=== PATIENT | male | born 1955 | race Caucasian/White ===

== ENCOUNTER 2016-12-03 12:22 | Emergency (ER) | payer SELFPAY ==
[~2016-12-03 12:22] MED LIST: ALBU6.7H INH; ERYT250 PO; PRED20 PO; Z.0.NO CURRENT MEDS
[2016-12-03 12:24] VITALS: BP 137/80; PULSE 68; RESP 20; TEMP 97.9; O2SAT 99
--- NOTE | 2016-12-03 12:49 | PD ---
Physical Exam Date Seen by Provider: Dec 03, 2016 Time Seen by Provider: 12:44 Data Data Last Documented VS Vital Signs Date Time Temp Pulse Resp B/P Pulse Ox O2 Delivery O2 Flow Rate FiO2 12/03/16 12:24 97.9 68 20 137/80 99 Room Air [facility] Supervised Visit with AMBER: No Narrative Course 61 YO M with complaint of right eye pain and redness x 1 week. No vision today. Denies injury. --F/C. Vitals reviewed. Seen in triage, awaiting bed placement. Nilda Jonas Dec 03, 2016 12:49
--- NOTE | 2016-12-03 13:04 | PD ---
HPI Chief Complaint: Eye Problems/Injury Time Seen by Provider: 13:01 Travel History International Travel<30 days: No Contact w/Intl Traveler<30days: No Traveled to known affect area: No History of Present Illness HPI 61-year-old male came to the emergency room with history of right eye tearing and irritation for past 2 weeks. Patient is not sure how this happened. 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 He says the eye one-stop tearing and it's photosensitive. There is no mattering. Vital signs otherwise stable. He is unable to see much from that eye. Patient does not have a primary care doctor and is not on any medications on a daily basis. [facility] Past Medical History Narrative Medical List of his past medical, surgical, social and family history is reviewed from the nursing note. Diminished Hearing: No Musculoskeletal: Yes ("BACK PROBLEMS" SCIATICA) Schizophrenia: Yes Past Surgical History Other Surgery: Yes (RIGHT THUMB) Social History Alcohol Use: No Tobacco Use: Yes (1 PPD) Substance Use: No Allergies-Medications (Allergen,Severity, Reaction): Coded Allergies: Darvocet-N 100 (Verified Allergy, Severe, Nausea/Vomiting, 12/03/16) Ibuprofen (Verified Allergy, Severe, NAUSEA, 12/03/16) Penicillin (Verified Allergy, Severe, VOMITING, SOB, 12/03/16) Opiate Agonists (Narcotics) (Verified Adverse Reaction, Unknown, Nausea/ Vomiting, 12/03/16) Comments List of his allergies reviewed from the nursing note. Reported Meds & Prescriptions Reported Meds & Active Scripts Active No Active Prescriptions or Reported Medications Narrative Medication List of his home medications reviewed from the nursing note. Review of Systems Except as stated in HPI: all other systems reviewed are Neg Physical Exam Narrative GENERAL: Awake, alert, moderate distress SKIN: Focused skin assessment warm/dry. HEAD: Atraumatic. Normocephalic. 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 However upon parting the eyelids open there is intense conjunctival injection. The cornea is opacified with central large ulcer and hypopyon visible. Pupil is sluggishly reactive to light. Vision is diminished to mostly light perception. Left eye is normal upon exam. ENT: No nasal bleeding or discharge. Mucous membranes pink and moist. NECK: Trachea midline. No JVD. CARDIOVASCULAR: Regular rate and rhythm. No murmur appreciated. RESPIRATORY: No accessory muscle use. Clear to auscultation. Breath sounds equal bilaterally. GASTROINTESTINAL: Abdomen soft, non-tender, nondistended. Hepatic and splenic margins not palpable. MUSCULOSKELETAL: No obvious deformities. No clubbing. No cyanosis. No edema. NEUROLOGICAL: Awake and alert. No obvious cranial nerve deficits. Motor grossly within normal limits. Normal speech. PSYCHIATRIC: Appropriate mood and affect; insight and judgment normal. Data Data Last Documented VS Vital Signs Date Time Temp Pulse Resp B/P Pulse Ox O2 Delivery O2 Flow Rate FiO2 12/03/16 13:09 18 12/03/16 12:24 97.9 68 137/80 99 Room Air Orders Blood Glucose (12/03/16 13:29) Wound Culture And Gram Stain (12/03/16 13:29) Wound Fungus Culture And Stain (12/03/16 13:29) Atropine 1% Opth Soln (Atropine 1% Opth (12/03/16 13:45) Tetracaine 0.5% Opth Soln (Tetracaine 0. (12/03/16 14:00) Non-Formulary Drug (12/03/16 14:00) Non-Formulary Drug (12/03/16 14:30) Proparacaine 0.5% Opth Soln (Alcaine 0.5 (12/03/16 14:15) MDM Medical Decision Making Medical Screen Exam Complete: Yes Emergency Medical Condition: Yes Medical Record Reviewed: Yes Differential Diagnosis Corneal ulcer, hypopyon Narrative Course 2:28 PM based on my assessment and diagnosis of corneal ulcer with hypopyon I called Dr. Avila on his cell phone who is the director of market research on-call for [facility]. There is no ophthalmology on-call for us. Upon description of the ulcer he recommended to give the patient one drop of atropine in the eye along with vancomycin ophthalmic solution that had to be prepared by our pharmacy with a concentration of 50 mg per mL and another ophthalmic solution preparation of tobramycin 15 mg per mL. These 2 eyedrops have to be given every 30 minutes alternating [id number] for a total of 96 drops. He wanted me to collect wound culture and send it before the eye drops are instilled. The culture needs to be sent for bacterial and fungal. As per him patient does not necessarily need to be admitted in the hospital unless he is unable to instilled these eyedrops as poor the strict instructions. He said he did not think this patient needed to be transferred to [facility] either. I discussed this with the patient and he was perfectly comfortable doing this at home. In fact patient does not have insurance he said and he would prefer to do it at home. I spoke with the pharmacists myself in order to give them the exact concentration instruction and they would be preparing the drops and sending it. Patient will get the first drops here and then discharged home with the medication. He is comfortable with this plan. His blood sugar was 96. Procedures EKG Prior to Arrival: No Physician Communication Physician Communication Dr. Avila Diagnosis Primary Impression: Corneal ulcer of right eye Additional Impression: Hypopyon of right eye Referrals: Laura Ramirez MD 1 day Additional Instructions: Please with the eyedrops that you were given from the emergency room every 30 minutes alternating one with the other. You have to put total of 96 drops which means [id number] for 2 days. Please follow-up with the director of market research was name and number been given to you in this discharge instruction. It is very important that you do not miss any doses of the eyedrops since your eye is grossly infected. Scripts No Active Prescriptions or Reported Meds Disposition: 01 DISCHARGE HOME Condition: Stable France Gagnon MD Dec 03, 2016 13:04 France Gagnon MD Dec 03, 2016 13:04
[2016-12-03] MEDS ORDERED: ATROPINE SULFATE 1% OPHT SOLN 2 ML BTL RIGHT EYE ONE (13:45)
[2016-12-03] MEDS ORDERED: TETRACAINE 0.5% OPTH SOLN 4 ML BTL RIGHT EYE ONE (14:00)
[2016-12-03] MEDS ORDERED: VANCOMYCIN RIGHT EYE SCH (14:00)
[2016-12-03] MEDS ORDERED: [UNRECOGNIZED DRUG - OTHER] RIGHT EYE SCH (14:00)
[2016-12-03] MEDS ORDERED: PROPARACAINE HCL 0.5% OPHT SOLN 15 ML BTL RIGHT EYE ONE (14:15)
[2016-12-03] MEDS ORDERED: TOBRAMYCIN RIGHT EYE SCH (14:30)
[2016-12-05] MEDS ORDERED: [UNRECOGNIZED DRUG - CODE] RIGHT EYE (09:56)
[2016-12-05] MEDS ORDERED: AK-T0.3S RIGHT EYE (09:56)
== END 2016-12-03 15:10 | disposition home or self-care (01) ==
LOC: NEPE 12:22
DX: H16.001 Unspecified corneal ulcer, right eye (principal); H20.051 Hypopyon, right eye; F20.9 Schizophrenia, unspecified; F17.200 Nicotine dependence, unspecified, uncomplicated
CPT/HCPCS: 86403; 87070; 87102; 87205; 87206; 99283

== ENCOUNTER 2016-12-05 17:55 | Inpatient (IN) | payer SELFPAY ==
[~2016-12-05] VITALS: Ht 172.7 cm; Wt 60.5 kg
[~2016-12-05 17:55] MED LIST changes: +AK-T0.3S RIGHT EYE; -ALBU6.7H INH; -ERYT250 PO; -PRED20 PO; -Z.0.NO CURRENT MEDS; +[UNRECOGNIZED DRUG - CODE] RIGHT EYE
[2016-12-05 17:58] VITALS: BP 154/89; PULSE 68; RESP 16; TEMP 97.8; O2SAT 98
--- NOTE | 2016-12-05 18:19 | PD ---
Physical Exam Time Seen by Provider: 18:17 Narrative 61yo M sent by [facility] [place] for Right eye pain x 2 weeks with complete loss of vision 1 1/2 weeks ago. Patient just left environmental professional office and was told to come to ER for admission. Denies fever, vomiting. Patient seen in triage. VS reviewed. Awaiting bed placement. Data Data Last Documented VS Vital Signs Date Time Temp Pulse Resp B/P Pulse Ox O2 Delivery O2 Flow Rate FiO2 12/05/16 17:58 97.8 68 16 154/89 98 MDM Supervised Visit with AMBER: Charissa Hernandes Dec 05, 2016 18:19
--- NOTE | 2016-12-05 18:48 | PD ---
HPI Chief Complaint: Eye Problems/Injury Time Seen by Provider: 18:35 Travel History International Travel<30 days: No Contact w/Intl Traveler<30days: No Traveled to known affect area: No History of Present Illness HPI This is a 61-year-old male who is referred here for admission for right eye endopthalmitis. The patient initially began having tearing, pain, itching and drainage from his right eye 3 weeks ago. He reports with a past week he has been having blurred vision and then almost complete vision loss in his right eye. He is only able to see shadows. He was seen here on December 03 and diagnosed with corneal ulceration with hypopyon. He was started on antibiotic drops. Today he saw pharmacy technician instructor Dr. Ramirez who referred him to retinal specialist Dr. Watson. Dr. Watson has referred him here to be admitted. I discussed with Dr. Watson reports that the patient has endophthalmitis like him to be admitted to medicine. No other complaints. PFSH Past Medical History Diminished Hearing: No Musculoskeletal: Yes (BACK PAIN) Schizophrenia: Yes (PARANOID SCHIZOPHRENIA) Tetanus Vaccination: > 5 Years Influenza Vaccination: No Past Surgical History Other Surgery: Yes (RIGHT THUMB) Social History Alcohol Use: No Tobacco Use: Yes (PT STATES HE SMOKES A LITTLE OVER 1/2 PACK/DAY) Substance Use: Yes (MARIJUANA) Allergies-Medications (Allergen,Severity, Reaction): Coded Allergies: Darvocet-N 100 (Verified Allergy, Severe, Nausea/Vomiting, 12/05/16) Ibuprofen (Verified Allergy, Severe, NAUSEA, 12/05/16) Penicillin (Verified Allergy, Severe, VOMITING, SOB, 12/05/16) Opiate Agonists (Narcotics) (Verified Adverse Reaction, Unknown, Nausea/ Vomiting, 12/05/16) Reported Meds & Prescriptions Reported Meds & Active Scripts Active Reported Vancomycin 1.5 Gram/250 ml-D5w (Vancomycin HCl in Dextrose 5 %) 1.5 Gm/250 Ml Plast..bag 1 Drop RIGHT EYE EVERY 30 MINUTES Tobramycin Opth Drops 0.3 % Soln 1 Drop RIGHT EYE EVERY 30 MINUTES Review of Systems Except as stated in HPI: all other systems reviewed are Neg Physical Exam Narrative GENERAL: Well-developed well-nourished male in no acute distress SKIN: Warm and dry. HEAD: Atraumatic. Normocephalic. EYES: Pupils round. Left pupil is dilated secondary to recent dilated eye examination. Sluggish reaction to light. Right eye has marked conjunctival injection, clouding of the cornea, significant hypopyon formation. ENT: No nasal bleeding or discharge. Mucous membranes pink and moist. NECK: Trachea midline. No JVD. No lymphadenopathy. CARDIOVASCULAR: Regular rate and rhythm. No murmur appreciated. RESPIRATORY: No accessory muscle use. Clear to auscultation. Breath sounds equal bilaterally. Data Data Last Documented VS Vital Signs Date Time Temp Pulse Resp B/P Pulse Ox O2 Delivery O2 Flow Rate FiO2 12/05/16 19:00 68 18 136/80 100 Room Air 12/05/16 17:58 97.8 Orders Complete Blood Count With Diff (12/05/16 18:43) Basic Metabolic Panel (Bmp) (12/05/16 18:43) Act Partial Throm Time (Ptt) (12/05/16 18:43) Prothrombin Time / Inr (Pt) (12/05/16 18:43) Iv Access Insert/Monitor (12/05/16 18:43) Admit Order (Ed Use Only) (12/05/16 19:06) [facility] Medical Decision Making Medical Screen Exam Complete: Yes Emergency Medical Condition: Yes Medical Record Reviewed: Yes Differential Diagnosis Endophthalmitis, corneal abrasion, corneal ulceration, hypopyon, iritis, conjunctivitis Narrative Course I discussed with the pharmacy technician instructor Dr. Watson would like the patient to be admitted to the medicine service with consultation to himself. Discussed with Dr. Juares who is agreeable with admission. Diagnosis Primary Impression: Endophthalmitis, acute Qualified Code: H44.001 - Endophthalmitis, acute, right Admitting Information Admitting Physician Requests: Admit Sergio Nichols Dec 05, 2016 18:48
[2016-12-05 19:00] VITALS: BP 136/80; PULSE 68; RESP 18; O2SAT 100
[2016-12-05 19:21] LABS: AUTOMATED NEUTROPHIL # 5.7 TH/MM3 (1.8-7.7); BASOPHIL # 0.1 TH/MM3 (0-0.2); BASOPHIL % 0.6 % (0.0-2.0); EOSINOPHIL # 0.3 TH/MM3 (0-0.4); EOSINOPHIL % 3.5 % (0.0-4.0); HEMATOCRIT 46.5 % (39.0-51.0); HEMO FLAGS DIFF FINAL; LYMPH % 23.7 % (9.0-44.0); LYMPHOCYTE # 2.1 TH/MM3 (1.0-4.8); MEAN CELL VOLUME 88.4 FL (80.0-100.0); MEAN CORPUSCULAR HEMOGLOBIN 30.4 PG (27.0-34.0); MEAN CORPUSCULAR HGB CONC 34.4 % (32.0-36.0); NEUT % 63.2 % (16.0-70.0); PLATELET COUNT 310 TH/MM3 (150-450); RED BLOOD COUNT 5.26 MIL/MM3 (4.50-5.90); RED CELL DISTRIBUTION WIDTH 12.8 % (11.6-17.2)
[2016-12-05 19:37] LABS: APTT (PATIENT) 28.8 SEC (24.3-30.1); PROTHROMBIN TIME - PATIENT 11.3 SEC (9.8-11.6)
[2016-12-05 19:46] LABS: BICARBONATE 28.4 MEQ/L (21.0-32.0); POTASSIUM 3.9 MEQ/L (3.5-5.1)
[2016-12-05 20:15] VITALS: O2SAT 98
[2016-12-05] MEDS ORDERED: SODIUM CHLORIDE 0.9% FLUSH 10 ML FLUSH IV FLUSH PRN (20:15)
[2016-12-05] MEDS ORDERED: ONDANSETRON HCL 4 MG/2 ML VIAL IVP PRN (20:15)
[2016-12-05] MEDS ORDERED: MAGNESIUM HYDROXIDE SUSP 30 ML CUP PO PRN (20:15)
[2016-12-05] MEDS ORDERED: NALOXONE HCL 0.4 MG/ML AMP IV PRN (20:15)
[2016-12-05] MEDS ORDERED: VANCOMYCIN HCL IN DEXTROSE RIGHT EYE SCH (20:45)
[2016-12-05] MEDS ORDERED: [UNRECOGNIZED DRUG - OTHER] RIGHT EYE SCH (20:45)
[2016-12-05 21:00] VITALS: BP 128/81; PULSE 55; RESP 20; TEMP 98.3; O2SAT 93
[2016-12-05] MEDS ORDERED: [UNRECOGNIZED DRUG - OTHER] RIGHT EYE SCH (21:00)
[2016-12-05] MEDS ORDERED: [UNRECOGNIZED DRUG - OTHER] RIGHT EYE SCH (21:00)
[2016-12-05] MEDS ORDERED: GENTAMICIN RIGHT EYE SCH (21:00)
[2016-12-05] MEDS ORDERED: TRIAMCINOLONE RIGHT EYE SCH (21:00)
[2016-12-05] MEDS ORDERED: VANCOMYCIN 1 MG/0.1 ML RIGHT EYE SCH (21:00)
[2016-12-05] MEDS ORDERED: [UNRECOGNIZED DRUG - OTHER] RIGHT EYE SCH (21:00)
[2016-12-05] MEDS: DOCUSATE SODIUM 50 MG/SENNA 8.6 MG TAB PO SCH (21:00)
--- NOTE | 2016-12-05 21:22 | HHI.HP ---
HPI Service [facility] Primary Care Physician No Primary Care Physician Admission Diagnosis endophthalmitis Diagnoses: Chief Complaint: pain right eye and decreased vision right eye Travel History International Travel<30 Days: No Contact w/Intl Traveler <30 Da: No Traveled to Known Affected Are: No History of Present Illness This is a pleasant 61 year old male patient with a past medical history which includes chronic back pain, sciatica and schizophrenia. Patient reports possibly 2 weeks ago he began to have pain in his right eye. Patient describes pain as severe 9 out of 10 starting spontaneously described as aching/burning in nature. Patient reports it is slightly better when he closes the eye and worse when next the eyes exposed to light. 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 Patient denies recent surgeries to the eye. Patient reports this is never happened before. Patient does report he has had pinkeye before and initially thought he had a, "cold," in his eye that would run its course but the pain continued in his vision has progressively gotten worse. Patient at this point reports he sees light and dark and some shadows but is not able to see any detail out of the right eye. Patient reports associated congestion in his right nostril. Patient denies headache, fevers, chills, nausea, vomiting, diarrhea, constipation, shortness of breath or chest pain. Review of Systems Except as stated in HPI: all other systems reviewed are Neg Past Family Social History Past Medical History chronic back pain, sciatica and schizophrenia Past Surgical History Right thumb sutured after trauma Reported Medications Vancomycin 1.5 Gram/250 ml-D5w (Vancomycin HCl in Dextrose 5 %) 1.5 Gm/250 Ml Plast..bag 1 Drop RIGHT EYE EVERY 30 MINUTES Tobramycin Opth Drops 0.3 % Soln 1 Drop RIGHT EYE EVERY 30 MINUTES Allergies: Coded Allergies: Darvocet-N 100 (Verified Allergy, Severe, Nausea/Vomiting, 12/05/16) Ibuprofen (Verified Allergy, Severe, NAUSEA, 12/05/16) Penicillin (Verified Allergy, Severe, VOMITING, SOB, 12/05/16) Opiate Agonists (Narcotics) (Verified Adverse Reaction, Unknown, Nausea/ Vomiting, 12/05/16) Active Ordered Medications Current Medications Medications (Trade) Dose Ordered Sig/Angelita Route Start Time Stop Time Status Last Admin (NS Flush) 2 ml UNSCH PRN IV FLUSH 12/05/16 20:15 (NS Flush) 2 ml BID IV FLUSH 12/05/16 21:00 (Tylenol) 650 mg Q4H PRN PO 12/05/16 20:15 (Zofran Inj) 4 mg Q6H PRN IVP 12/05/16 20:15 (Narcan Inj) 0.4 mg UNSCH PRN IV 12/05/16 20:15 (Kelli-Colace) 1 tab BID PO 12/05/16 21:00 (Milk Of Magnyu Liq) 30 ml Q12H PRN PO 12/05/16 20:15 (Tobrex 0.3% Opth Soln) 1 drop Q1HR RIGHT EYE 12/05/16 21:00 UNV Non-Formulary Medication 0.1 ML INTRA-VITREAL INJECTION UNSCH RIGHT EYE 12/05/16 21:00 Non-Formulary Medication 0.1 ML INTRA-VITREAL INJECTION UNSCH RIGHT EYE 12/05/16 21:00 (Triesence Opth Inj) 4 mg UNSCH RIGHT EYE 12/05/16 21:00 Non-Formulary Medication 1 DROP IN THE RIGHT ... UNSCH RIGHT EYE 12/05/16 21:15 12/16/16 21:16 Non-Formulary Medication 1 DROP TO RIGHT EYE UNSCHEDU... UNSCH EACH EYE 12/05/16 21:15 Family History Mother at 44 secondary to colon cancer Patient does not know his father or father's medical history Social History Patient lives at home with his significant other Patient denies EtOH use Smokes less than one pack cigarettes per day Smokes marijuana multiple times a day. Patient reports he smokes marijuana, "any time I can get it." Denies any other illicit drug use Physical Exam Vital Signs Vital Signs Date Time Temp Pulse Resp B/P Pulse Ox O2 Delivery O2 Flow Rate FiO2 12/05/16 20:15 98 12/05/16 19:00 68 18 136/80 100 Room Air 12/05/16 18:41 17 12/05/16 17:58 97.8 68 16 154/89 98 Physical Exam GENERAL: This is a well-nourished, well-developed patient, in no apparent distress. SKIN: No rashes, ecchymoses or lesions. Cool and dry. HEAD: Atraumatic. Normocephalic. No temporal or scalp tenderness. EYES: Right eye pupil with white/cloudy appearance, conjunctiva red/pink with clear drainage present. Left eye reactive to light and accommodation CARDIOVASCULAR: Regular rate and rhythm without murmurs, gallops, or rubs. RESPIRATORY: Clear to auscultation. Breath sounds equal bilaterally. No wheezes , rales, or rhonchi. GASTROINTESTINAL: Abdomen soft, non-tender, nondistended. No hepato-splenomegaly , or palpable masses. No guarding. MUSCULOSKELETAL: Extremities without clubbing, cyanosis, or edema. No joint tenderness, effusion, or edema noted. No calf tenderness. Negative Homans sign bilaterally. NEUROLOGICAL: Awake and alert. No focal deficits noted. Motor and sensory grossly within normal limits. Five out of 5 muscle strength in all muscle groups. Normal speech. Laboratory Laboratory Tests Test 12/05/16 19:02 White Blood Count 9.0 Red Blood Count 5.26 Hemoglobin 16.0 Hematocrit 46.5 Mean Corpuscular Volume 88.4 Mean Corpuscular Hemoglobin 30.4 Mean Corpuscular Hemoglobin 34.4 Concent Red Cell Distribution Width 12.8 Platelet Count 310 Mean Platelet Volume 7.1 Neutrophils (%) (Auto) 63.2 Lymphocytes (%) (Auto) 23.7 Monocytes (%) (Auto) 9.0 Eosinophils (%) (Auto) 3.5 Basophils (%) (Auto) 0.6 Neutrophils # (Auto) 5.7 Lymphocytes # (Auto) 2.1 Monocytes # (Auto) 0.8 Eosinophils # (Auto) 0.3 Basophils # (Auto) 0.1 CBC Comment DIFF FINAL Differential Comment Prothrombin Time 11.3 Prothromb Time International 1.0 Ratio Activated Partial 28.8 Thromboplast Time Sodium Level 140 Potassium Level 3.9 Chloride Level 104 Carbon Dioxide Level 28.4 Anion Gap 8 Blood Urea Nitrogen 18 Creatinine 0.96 Estimat Glomerular Filtration 79 Rate Random Glucose 108 Calcium Level 8.8 Result Diagram: 12/05/16190112/05/161901 Assessment and Plan Problem List: (1) Endophthalmitis, acute ICD Code: H44.009 Status: Acute Assessment and Plan 61 year old male patient with a past medical history which includes chronic back pain, sciatica and schizophrenia. Patient reports possibly 2 weeks ago he began to have pain in his right eye. Patient at this point reports he sees light and dark and some shadows but is not able to see any detail out of the right eye. Referred to ER by retinal specialist Dr. Watson for treatment of endophthalmitis. Endophthalmitis STAT Consult to Dr. Watson spoke with Dr. Watson at approximately 12/05- who reports he would see patient this evening and faxed orders. Orders given to nursing who called Dr. Watson and reported they are unable to enter these orders for him. Discussed with Dr. Juares who is aware of situation. Continue tobramycin and vancomycin optic drops per outpatient medication reconciliation- further orders per Dr. Watson DVT prophylaxis with SCDs Case discussed with ER provider, nursing patient Dr. Watson and Dr. Juares Physician Certification 2 Midnight Certification Type: Admission for Inpatient Services Order for Inpatient Services The services are ordered in accordance with Medicare regulations or non- Medicare payer requirements, as applicable. In the case of services not specified as inpatient-only, they are appropriately provided as inpatient services in accordance with the 2-midnight benchmark. Estimated LOS (days): 3 days is the estimated time the patient will need to remain in the hospital, assuming treatment plan goals are met and no additional complications. Post-Hospital Plan: Home Problem Qualifiers (1) Endophthalmitis, acute: Qualified Code: H44.001 - Endophthalmitis, acute, right Liya Nation Dec 05, 2016 21:22
--- NOTE | 2016-12-05 21:46 | HHI.PR ---
Addendum to Inpatient Note Addendum Reason: Additional Documentation Additional Information Discussed this case with ER PA, our physician rehab assistant and charge nurse of the patient. Patient was sent from retinal specialist Dr. Watson's office for management of endopthalmitis. Dr. Watson is made aware of the case after patient's arrival to ER by ER PA. Our hospitalist team PA also called Dr. Watson to inform him of patient's arrival and plan of care. Dr. Watson told our PA that he plans to take patient for intervention tonight and had faxed papers with orders. We have given these paper orders to patient's nurse and charge nurse in [address] [place] [address] who called and spoke to Dr Watson. Further clarification of orders to be done by nursing staff and the physician who put the orders. Pharmacy is informed to follow Dr. Watson's orders on this case. As the hospitalist physician, I am not responsible for putting in ophthalmology orders that I am not familiar with and cannot be held responsible for treatment option plans and choices. China Juares MD Dec 05, 2016 21:46
[2016-12-05] MEDS ORDERED: TOBRAMYCIN SULF 0.3% OPHT SOLN 5 ML BTL RIGHT EYE SCH (22:00)
[2016-12-05] MEDS ORDERED: LIDOCAINE 3.5% RIGHT EYE PRN (22:00)
[2016-12-05] MEDS ORDERED: PROPARACAINE HCL 0.5% OPHT SOLN 15 ML BTL RIGHT EYE PRN (22:00)
[2016-12-05] MEDS: SODIUM CHLORIDE 0.9% FLUSH 10 ML FLUSH IV FLUSH SCH (22:04)
[2016-12-05] MEDS ORDERED: POVIDONE IODINE 10% OINT 1 PACKET PRN (22:15)
[2016-12-05] MEDS ORDERED: COCAINE HCL 4% SOLN 4 ML VIAL TOPICAL ONE (22:45)
[2016-12-06] VITALS (8 sets, daily range): BP systolic 118–135; BP diastolic 65–84; PULSE 50–58; RESP 18; TEMP 97.9–98.5; O2SAT 96–97
[2016-12-06] MEDS: ACETAMINOPHEN/HYDROcodone 325 MG/10 MG TAB PO PRN ×4 (00:20→21:32)
[2016-12-06] MEDS: GENTAMICIN RIGHT EYE SCH ×25 (00:21→23:20)
[2016-12-06] MEDS: ATROPINE SULFATE 1% OPHT SOLN 5 ML BTL RIGHT EYE SCH ×4 (00:49→18:00)
[2016-12-06] MEDS: prednisoLONE ACETATE 1% OPHT SUSP 5 ML BTL RIGHT EYE SCH ×23 (00:51→23:04)
[2016-12-06] MEDS: VANCOMYCIN RIGHT EYE SCH ×9 (00:55→08:17)
[2016-12-06] MEDS: [UNRECOGNIZED DRUG - OTHER] RIGHT EYE SCH ×9 (00:55→08:17)
[2016-12-06 07:09] LABS: AUTOMATED NEUTROPHIL # 6.9 TH/MM3 (1.8-7.7); BASOPHIL # 0.1 TH/MM3 (0-0.2); BASOPHIL % 0.8 % (0.0-2.0); EOSINOPHIL # 0.3 TH/MM3 (0-0.4); EOSINOPHIL % 3.2 % (0.0-4.0); HEMATOCRIT 45.5 % (39.0-51.0); HEMO FLAGS DIFF FINAL; LYMPH % 22.4 % (9.0-44.0); LYMPHOCYTE # 2.3 TH/MM3 (1.0-4.8); MEAN CELL VOLUME 89.1 FL (80.0-100.0); MEAN CORPUSCULAR HEMOGLOBIN 30.2 PG (27.0-34.0); MEAN CORPUSCULAR HGB CONC 33.8 % (32.0-36.0); MONO % 7.3 % (0.0-8.0); NEUT % 66.3 % (16.0-70.0); PLATELET COUNT 292 TH/MM3 (150-450); RED CELL DISTRIBUTION WIDTH 12.7 % (11.6-17.2); WHITE BLOOD COUNT 10.3 TH/MM3 (4.0-11.0)
[2016-12-06 07:22] LABS: BICARBONATE 26.1 MEQ/L (21.0-32.0); POTASSIUM 4.5 MEQ/L (3.5-5.1)
[2016-12-06] MEDS: SODIUM CHLORIDE 0.9% FLUSH 10 ML FLUSH IV FLUSH SCH ×2 (08:12→21:12)
[2016-12-06] MEDS: DOCUSATE SODIUM 50 MG/SENNA 8.6 MG TAB PO SCH ×2 (08:14→21:12)
--- NOTE | 2016-12-06 09:13 | HHI.PR ---
Subjective Remarks Follow-up endophthalmitis. Still having pain scale of 8 out of 10. Discussed with RN, patient on 3 different eyedrops Objective Vitals Vital Signs Date Time Temp Pulse Resp B/P Pulse Ox O2 Delivery O2 Flow Rate FiO2 12/06/16 08:00 97.9 50 18 122/70 96 12/06/16 04:00 97.9 57 18 123/71 96 12/06/16 00:00 98.4 58 18 134/84 97 12/05/16 21:00 Room Air 12/05/16 21:00 98.3 55 20 128/81 93 12/05/16 20:15 98 12/05/16 19:00 68 18 136/80 100 Room Air 12/05/16 18:41 17 12/05/16 17:58 97.8 68 16 154/89 98 Result Diagram: 12/06/16 0542 12/06/16 0542 Objective Remarks GENERAL: This is a well-nourished, well-developed patient, in no apparent distress. SKIN: No rashes, ecchymoses or lesions. Cool and dry. HEAD: Atraumatic. Normocephalic. No temporal or scalp tenderness. EYES: Right eye pupil with white/cloudy appearance, conjunctiva red/pink with clear drainage present. Left eye reactive to light CARDIOVASCULAR: Regular rate and rhythm without murmurs, gallops, or rubs. RESPIRATORY: Clear to auscultation. Breath sounds equal bilaterally. No wheezes , rales, or rhonchi. GASTROINTESTINAL: Abdomen soft, non-tender, nondistended. No hepato-splenomegaly , or palpable masses. No guarding. MUSCULOSKELETAL: Extremities without clubbing, cyanosis, or edema. No joint tenderness, effusion, or edema noted. No calf tenderness. Negative Homans sign bilaterally. NEUROLOGICAL: Awake and alert. No focal deficits noted. Motor and sensory grossly within normal limits. Five out of 5 muscle strength in all muscle groups. Normal speech. Procedures none A/P Problem List: (1) Endophthalmitis, acute ICD Code: H44.009 Status: Acute Assessment and Plan 61 year old male patient with a past medical history which includes chronic back pain, sciatica and schizophrenia. Patient reports possibly 2 weeks ago he began to have pain in his right eye. Patient at this point reports he sees light and dark and some shadows but is not able to see any detail out of the right eye. Referred to ER by retinal specialist Dr. Watson for treatment of endophthalmitis. Endophthalmitis Continue tobramycin, Atrovent and Pred Forte eyedrops per ophthalmology. Pain management with Lortab DVT prophylaxis with SCDs Discharge Planning Discharge planning per ophthalmology Problem Qualifiers (1) Endophthalmitis, acute: Qualified Code: H44.001 - Endophthalmitis, acute, right Jorden Mann MD Dec 06, 2016 09:13 Jorden Mann MD Dec 06, 2016 09:13
[2016-12-06] MEDS ORDERED: HYDR-3583 PO (16:02)
--- NOTE | 2016-12-06 16:02 | HHI.DCPOC ---
Discharge Care Plan Diagnosis: (1) Endophthalmitis, acute Your Health Problems Are: Difficulty with ADL Exercise Tolerance Goals to Promote Your Health * To prevent worsening of your condition and complications * To maintain your health at the optimal level Directions to Meet Your Goals Take your medications as prescribed Follow your dietary instruction Follow activity as directed Keep your appointments as scheduled Take your immunizations and boosters as scheduled If your symptoms worsen call your PCP, if no PCP go to Urgent Care Center or Emergency Room Smoking is Dangerous to Your Health. Avoid second hand smoke Call the 24-hour hour crisis hotline for domestic abuse at Jorden Mann MD Dec 06, 2016 16:02
[2016-12-07] VITALS (8 sets, daily range): BP systolic 107–131; BP diastolic 60–88; PULSE 47–62; RESP 16–20; TEMP 97.8–98.6; O2SAT 93–97
[2016-12-07] MEDS: prednisoLONE ACETATE 1% OPHT SUSP 5 ML BTL RIGHT EYE SCH ×24 (00:06→23:07)
[2016-12-07] MEDS: GENTAMICIN RIGHT EYE SCH ×24 (00:22→23:08)
[2016-12-07] MEDS: ACETAMINOPHEN/HYDROcodone 325 MG/10 MG TAB PO PRN ×4 (02:31→15:15)
--- NOTE | 2016-12-07 08:19 | HHI.PR ---
Subjective Remarks Follow-up Endophthalmitis. Improving eye pain. Still can't see out of right eye. Discussed with RN, stable for discharge from medical standpoint pending ophthalmology clearance Objective Vitals Vital Signs Date Time Temp Pulse Resp B/P Pulse Ox O2 Delivery O2 Flow Rate FiO2 12/07/16 04:00 97.8 50 18 107/60 96 12/07/16 00:00 98.0 55 16 123/78 96 12/06/16 20:00 98.5 52 18 135/79 97 12/06/16 19:30 Room Air 12/06/16 18:02 97 21 12/06/16 16:00 98.0 50 18 126/65 97 12/06/16 12:00 98.4 58 18 118/79 97 12/06/16 11:01 96 I/O 12/06/16 12/06/16 12/06/16 12/07/16 12/07/16 12/07/16 07:00 15:00 23:00 07:00 15:00 23:00 Intake Total 720 ml 360 ml 240 ml Balance 720 ml 360 ml 240 ml Intake Oral 720 ml 360 ml 240 ml IV Total 0 ml # Voids 2 3 4 # Bowel Movements 1 1 0 Result Diagram: 12/06/1642 12/06/16 0542 Objective Remarks GENERAL: This is a well-nourished, well-developed patient, in no apparent distress. SKIN: No rashes, ecchymoses or lesions. Cool and dry. HEAD: Atraumatic. Normocephalic. No temporal or scalp tenderness. EYES: Right eye pupil with white/cloudy appearance, conjunctiva red/pink with clear drainage present. Left eye reactive to light CARDIOVASCULAR: Regular rate and rhythm without murmurs, gallops, or rubs. RESPIRATORY: Clear to auscultation. Breath sounds equal bilaterally. No wheezes , rales, or rhonchi. GASTROINTESTINAL: Abdomen soft, non-tender, nondistended. No hepato-splenomegaly , or palpable masses. No guarding. MUSCULOSKELETAL: Extremities without clubbing, cyanosis, or edema. No joint tenderness, effusion, or edema noted. No calf tenderness. Negative Homans sign bilaterally. NEUROLOGICAL: Awake and alert. No focal deficits noted. Motor and sensory grossly within normal limits. Five out of 5 muscle strength in all muscle groups. Normal speech. Procedures Tap and injection of right eye with vancomycin, gentamicin and triamcinolone A/P Problem List: (1) Endophthalmitis, acute ICD Code: H44.009 Status: Acute Assessment and Plan 61 year old male patient with a past medical history which includes chronic back pain, sciatica and schizophrenia. Patient reports possibly 2 weeks ago he began to have pain in his right eye. Patient at this point reports he sees light and dark and some shadows but is not able to see any detail out of the right eye. Referred to ER by retinal specialist Dr. Watson for treatment of endophthalmitis. Endophthalmitis s/p Tap and injection of right eye with vancomycin, gentamicin and triamcinolone by Dr. Watson. Improving pain. Cultures negative to date Continue tobramycin, Atrovent and Pred Forte eyedrops per ophthalmology. Pain management with Lortab DVT prophylaxis with SCDs Discharge Planning Discharge planning per ophthalmology Problem Qualifiers (1) Endophthalmitis, acute: Qualified Code: H44.001 - Endophthalmitis, acute, right Jorden Mann MD Dec 07, 2016 08:19
[2016-12-07] MEDS: DOCUSATE SODIUM 50 MG/SENNA 8.6 MG TAB PO SCH ×2 (08:23→20:23)
[2016-12-07] MEDS: SODIUM CHLORIDE 0.9% FLUSH 10 ML FLUSH IV FLUSH SCH ×2 (08:24→20:24)
[2016-12-07] MEDS: ATROPINE SULFATE 1% OPHT SOLN 5 ML BTL RIGHT EYE SCH ×3 (09:16→18:38)
[2016-12-07] MEDS: VANCOMYCIN RIGHT EYE SCH ×2 (22:18→23:07)
[2016-12-07] MEDS: [UNRECOGNIZED DRUG - OTHER] RIGHT EYE SCH ×2 (22:18→23:07)
[2016-12-08] VITALS (9 sets, daily range): BP systolic 106–154; BP diastolic 67–95; PULSE 46–60; RESP 18–20; TEMP 97.6–98.4; O2SAT 94–98
[2016-12-08] MEDS: VANCOMYCIN RIGHT EYE SCH ×24 (00:02→23:00)
[2016-12-08] MEDS: prednisoLONE ACETATE 1% OPHT SUSP 5 ML BTL RIGHT EYE SCH ×23 (00:02→22:23)
[2016-12-08] MEDS: GENTAMICIN RIGHT EYE SCH ×24 (00:02→23:34)
[2016-12-08] MEDS: [UNRECOGNIZED DRUG - OTHER] RIGHT EYE SCH ×23 (00:02→22:22)
[2016-12-08] MEDS: ACETAMINOPHEN/HYDROcodone 325 MG/10 MG TAB PO PRN ×3 (06:03→20:36)
[2016-12-08] MEDS: SODIUM CHLORIDE 0.9% FLUSH 10 ML FLUSH IV FLUSH SCH ×2 (08:03→21:10)
[2016-12-08] MEDS: DOCUSATE SODIUM 50 MG/SENNA 8.6 MG TAB PO SCH ×2 (08:45→21:00)
[2016-12-08] MEDS: ATROPINE SULFATE 1% OPHT SOLN 5 ML BTL RIGHT EYE SCH ×3 (08:45→18:24)
--- NOTE | 2016-12-08 08:57 | HHI.PR ---
Subjective Remarks Follow-up eye infection. Ophthalmology added topical vancomycin which was inadvertently discontinued. Patient complaining of right eye pain requiring Lortab. Still cannot see out of the right eye. Discussed with RN Objective Vitals Vital Signs Date Time Temp Pulse Resp B/P Pulse Ox O2 Delivery O2 Flow Rate FiO2 12/08/16 08:00 Room Air 12/08/16 04:00 98.3 56 20 124/68 96 12/08/16 04:00 Room Air 12/08/16 00:19 98.1 46 20 118/76 98 12/08/16 00:00 Room Air 12/07/16 22:17 95 21 12/07/16 20:00 Room Air 12/07/16 20:00 98.4 57 20 130/88 97 12/07/16 16:00 98.3 51 16 125/83 96 12/07/16 16:00 Room Air 12/07/16 12:00 Room Air 12/07/16 12:00 98.6 47 16 131/80 97 12/07/16 09:11 93 21 I/O 12/07/16 12/07/16 12/07/16 12/08/16 12/08/16 12/08/16 07:00 15:00 23:00 07:00 15:00 23:00 Intake Total 240 ml 602 ml 360 ml 120 ml Balance 240 ml 602 ml 360 ml 120 ml Intake Oral 240 ml 600 ml 360 ml 120 ml IV Total 2 ml # Voids 4 3 3 3 # Bowel Movements 0 0 0 0 Result Diagram: 12/06/16 0542 12/06/16 0542 Objective Remarks GENERAL: This is a well-nourished, well-developed patient, in no apparent distress. SKIN: No rashes, ecchymoses or lesions. Cool and dry. HEAD: Atraumatic. Normocephalic. No temporal or scalp tenderness. EYES: Right eye pupil with white/cloudy appearance, conjunctiva red/pink with clear drainage present. Left eye reactive to light CARDIOVASCULAR: Regular rate and rhythm without murmurs, gallops, or rubs. RESPIRATORY: Clear to auscultation. Breath sounds equal bilaterally. No wheezes , rales, or rhonchi. GASTROINTESTINAL: Abdomen soft, non-tender, nondistended. No hepato-splenomegaly , or palpable masses. No guarding. MUSCULOSKELETAL: Extremities without clubbing, cyanosis, or edema. No joint tenderness, effusion, or edema noted. No calf tenderness. Negative Homans sign bilaterally. NEUROLOGICAL: Awake and alert. No focal deficits noted. Motor and sensory grossly within normal limits. Five out of 5 muscle strength in all muscle groups. Normal speech. Procedures Tap and injection of right eye with vancomycin, gentamicin and triamcinolone A/P Problem List: (1) Endophthalmitis, acute ICD Code: H44.009 Status: Acute Assessment and Plan 61 year old male patient with a past medical history which includes chronic back pain, sciatica and schizophrenia. Patient reports possibly 2 weeks ago he began to have pain in his right eye. Patient at this point reports he sees light and dark and some shadows but is not able to see any detail out of the right eye. Referred to ER by retinal specialist Dr. Watson for treatment of endophthalmitis. Endophthalmitis s/p Tap and injection of right eye with vancomycin, gentamicin and triamcinolone by Dr. Watson. Improving pain. Cultures negative to date, will follow up Continue tobramycin, Atrovent and Pred Forte eyedrops per ophthalmology. Added Vanco eyedrops. Pain management with Lortab DVT prophylaxis with SCDs Discharge Planning Discharge planning per ophthalmology Problem Qualifiers (1) Endophthalmitis, acute: Qualified Code: H44.001 - Endophthalmitis, acute, right Jorden Mann MD Dec 08, 2016 08:57
[2016-12-08] MEDS: AMPHOTERICIN B RIGHT EYE SCH ×7 (20:40→23:35)
[2016-12-08] MEDS: [UNRECOGNIZED DRUG - OTHER] RIGHT EYE SCH (23:00)
[2016-12-09] VITALS (10 sets, daily range): BP systolic 92–126; BP diastolic 55–81; PULSE 48–60; RESP 15–16; TEMP 97.6–98.6; O2SAT 95–98
[2016-12-09] MEDS: AMPHOTERICIN B RIGHT EYE SCH ×44 (00:07→22:30)
[2016-12-09] MEDS: GENTAMICIN RIGHT EYE SCH ×7 (00:07→06:09)
[2016-12-09] MEDS: [UNRECOGNIZED DRUG - OTHER] RIGHT EYE SCH ×12 (00:45→23:14)
[2016-12-09] MEDS: VANCOMYCIN RIGHT EYE SCH ×12 (00:45→23:14)
[2016-12-09] MEDS: CHLORHEXIDINE GLUCONATE 2 % 1 PACK (2 CLOTHS)(taper/protocol) TOPICAL SCH ×2 (04:00→20:18)
[2016-12-09] MEDS: SODIUM CHLORIDE 0.9% FLUSH 10 ML FLUSH IV FLUSH SCH ×2 (08:32→20:23)
[2016-12-09] MEDS: TOBRAMYCIN RIGHT EYE SCH ×8 (08:32→21:28)
[2016-12-09] MEDS: ATROPINE SULFATE 1% OPHT SOLN 5 ML BTL RIGHT EYE SCH ×3 (09:10→17:55)
[2016-12-09] MEDS: DOCUSATE SODIUM 50 MG/SENNA 8.6 MG TAB PO SCH ×2 (09:12→20:24)
[2016-12-09] MEDS: ACETAMINOPHEN/HYDROcodone 325 MG/10 MG TAB PO PRN ×2 (09:15→20:17)
--- NOTE | 2016-12-09 10:15 | HHI.PR ---
Subjective Remarks resting comfortably with no distress. says that his vision is improving but very slowly. no new complaints. Objective Vitals Vital Signs Date Time Temp Pulse Resp B/P Pulse Ox O2 Delivery O2 Flow Rate FiO2 12/09/16 10:00 96 Room Air 12/09/16 10:00 57 16 108/69 12/09/16 08:45 98 12/09/16 08:00 Room Air 12/09/16 08:00 98.3 59 16 109/77 12/09/16 04:00 98.4 48 16 126/69 95 12/09/16 00:00 95 Room Air 12/09/16 00:00 97.8 52 16 124/81 95 12/08/16 22:50 97.8 55 20 154/95 97 12/08/16 20:31 98.4 55 18 112/67 95 12/08/16 20:00 Room Air 12/08/16 17:30 94 21 12/08/16 16:00 Room Air 12/08/16 16:00 97.9 53 18 122/77 94 12/08/16 12:00 97.8 54 18 106/71 96 12/08/16 12:00 Room Air I/O 12/08/16 12/08/16 12/08/16 12/09/16 12/09/16 12/09/16 07:00 15:00 23:00 07:00 15:00 23:00 Intake Total 120 ml 482 ml 120 ml 0 ml Output Total 0 ml Balance 120 ml 482 ml 120 ml 0 ml Intake Oral 120 ml 480 ml 120 ml 0 ml IV Total 2 ml Output Urine Total 0 ml # Voids 3 2 3 # Bowel Movements 0 Result Diagram: 12/06/16 0542 12/06/16 0542 Objective Remarks GENERAL: This is a well-nourished, well-developed patient, in no apparent distress. HEENT; left eye is mildly swollen CARDIOVASCULAR: Regular rate and regular rhythm without murmurs, gallops, or rubs. RESPIRATORY: Clear to auscultation. Breath sounds equal bilaterally. No wheezes , rales, or rhonchi. GASTROINTESTINAL: Abdomen soft, non-tender, nondistended. Normal, active bowel sounds MUSCULOSKELETAL: Extremities without clubbing, cyanosis, or edema. NEURO: Alert & Oriented x4 to person, place, time, situation. Moves all ext x4 Procedures Tap and injection of right eye with vancomycin, gentamicin and triamcinolone Medications and IVs Current Medications Sodium Chloride (NS Flush) 2 ml UNSCH PRN IV FLUSH FLUSH AFTER USING IV ACCESS ; Start 12/05/16 at 20:15 Sodium Chloride (NS Flush) 2 ml BID IV FLUSH Last administered on 12/09/16 08: 32; Start 12/05/16 at 21:00 Acetaminophen (Tylenol) 650 mg Q4H PRN PO TEMP > 100.4; Start 12/05/16 at 20:15 Ondansetron HCl (Zofran Inj) 4 mg Q6H PRN IVP NAUSEA OR VOMITING; Start at 20:15 Naloxone HCl (Narcan Inj) 0.4 mg UNSCH PRN IV SEE LABEL COMMENTS; Start at 20:15 Senna/Docusate Sodium (Kelli-Colace) 1 tab BID PO Last administered on 09:12; Start 12/05/16 at 21:00 Magnesium Hydroxide (Milk Of Magnesia Liq) 30 ml Q12H PRN PO MILD - MODERATE CONSTIPATION; Start 12/05/16 at 20:15 Tobramycin Sulfate (Tobrex 0.3% Opth Soln) 1 drop Q30M RIGHT EYE ; Start at 22:00; Status Cancel Non-Formulary Medication 1 drop Every 30 minutes RIGHT EYE ; Start 12/05/16 at 20:45; Stop 12/05/16 at 21:30; Status DC Non-Formulary Medication 0.1 ML INTRA-VITREAL INJECTION UNSCH RIGHT EYE ; Start 12/05/16 at 21:00; Stop 12/06/16 at 03:00; Status DC Non-Formulary Medication 0.1 ML INTRA-VITREAL INJECTION UNSCH RIGHT EYE ; Start 12/05/16 at 21:00; Stop 12/06/16 at 03:00; Status DC Triamcinolone Acetonide (Triesence Opth Inj) 4 mg UNSCH RIGHT EYE ; Start at 21:00 Non-Formulary Medication 1 DROP IN THE RIGHT ... Q1H RIGHT EYE Last administered on 12/06/16 08:17; Start 12/05/16 at 21:15; Stop 12/06/16 at 08:16 ; Status DC Non-Formulary Medication 1 DROP TO RIGHT EYE UNSCHEDU... Q1H RIGHT EYE Last administered on 12/09/16 06:09; Start 12/05/16 at 21:15; Stop 12/09/16 at 07:30 ; Status DC Atropine Sulfate (Isopto Atropine 1% Opth Soln) 1 drop TID RIGHT EYE Last administered on 12/09/16 09:10; Start 12/05/16 at 22:00 Prednisolone Acetate (Pred Forte 1% Opth Susp) 1 drop Q1H RIGHT EYE Last administered on 12/08/16 22:23; Start 12/05/16 at 22:00; Status Hold Proparacaine HCl (Alcaine 0.5% Opht Soln) 1 drop UNSCH PRN RIGHT EYE PROCEDURE ; Start 12/05/16 at 22:00; Stop 12/06/16 at 21:59; Status DC Lidocaine ([place] Pf 3.5% Opth Gel) 1 drop UNSCH PRN RIGHT EYE PROCEDURE; Start 12/05/16 at 22:00; Stop 12/06/16 at 21:59; Status Cancel Povidone Iodine (Betadine 10% Oint) 1 pkt UNSCH PRN .XX PROCEDURE; Start at 22:15; Stop 12/06/16 at 22:14; Status DC Cocaine HCl (Cocaine 4% Top Soln) 4 ml ONCE ONCE TOPICAL Last administered on 12/05/16 22:45; Start 12/05/16 at 22:45; Stop 12/05/16 at 22:46; Status DC Acetaminophen/ Hydrocodone Bitart ([place] 10-325 Mg) 1 tab Q3H PRN PO Last administered on 12/06/16 03:42; Start 12/06/16 at 00:15; Stop 12/06/16 at 09:17 ; Status DC Acetaminophen/ Hydrocodone Bitart ([place] 10-325 Mg) 1 tab Q4H PRN PO pain Last administered on 12/09/16 09:15; Start 12/06/16 at 12:00 Non-Formulary Medication 1 DROP IN THE RIGHT EYE Q1H Q1H RIGHT EYE Last administered on 12/08/16 22:22; Start 12/07/16 at 22:00; Stop 12/08/16 at 22:33 ; Status DC Non-Formulary Medication AMPHOTERICIN B OPHTHALMIC EYE DROPS 0.5%... Q30M RIGHT EYE Last administered on 12/09/16 10:02; Start 12/08/16 at 20:30; Stop at 20:01 Non-Formulary Medication AMPHOTERICIN B OPHTHALMIC EYE DROPS 0.5%... Q1H RIGHT EYE ; Start 12/09/16 at 20:30 Non-Formulary Medication 1 DROP IN THE RIGHT EYE Q2H Q2H RIGHT EYE Last administered on 12/09/16 09:11; Start 12/08/16 at 23:00 Miscellaneous Information Patient in critical care unit? Ass... Q361D .XX ; Start 12/09/16 at 00:00 Chlorhexidine Gluconate (Chlorhexidine 2% Cloth) 3 pack DAILY@04 TOPICAL ; Start 12/09/16 at 04:00; Stop 12/13/16 at 04:01 Chlorhexidine Gluconate (Chlorhexidine 2% Cloth) 3 pack UNSCH PRN TOPICAL HYGIENIC CARE; Start 12/09/16 at 23:45; Stop 12/14/16 at 23:44 Non-Formulary Medication 1 DROP TO RIGHT EYE Q2H... Q2H RIGHT EYE Last administered on 12/09/16 10:03; Start 12/09/16 at 08:00 A/P Assessment and Plan A/P Endophthalmitis s/p Tap and injection of right eye with vancomycin, gentamicin and triamcinolone by Dr. Watson. Improving pain. Cultures with mold and gram positive cocci Continue amphotericin, vancomycin, tobramycin, atropine eyedrops per ophthalmology. Pain management with Lortab DVT prophylaxis with SCDs Discharge Planning dc planning when cleared by ophthalmology. Keli Velásquez MD Dec 09, 2016 10:15
[2016-12-09] MEDS ORDERED: CHLORHEXIDINE GLUCONATE 2 % 1 PACK (2 CLOTHS)(extra cloths) TOPICAL PRN (23:45)
[2016-12-10] VITALS (12 sets, daily range): BP systolic 91–119; BP diastolic 54–75; PULSE 55–70; RESP 15–20; TEMP 97.4–98.8; O2SAT 96–99
[2016-12-10] MEDS: TOBRAMYCIN RIGHT EYE SCH ×12 (00:01→23:40)
[2016-12-10] MEDS: AMPHOTERICIN B RIGHT EYE SCH ×24 (00:34→23:41)
[2016-12-10] MEDS: VANCOMYCIN RIGHT EYE SCH ×12 (02:22→23:39)
[2016-12-10] MEDS: [UNRECOGNIZED DRUG - OTHER] RIGHT EYE SCH ×12 (02:22→23:39)
[2016-12-10] MEDS: ACETAMINOPHEN/HYDROcodone 325 MG/10 MG TAB PO PRN ×3 (02:24→23:49)
--- NOTE | 2016-12-10 07:57 | HHI.PR ---
Subjective Remarks resting comfortably with no distress. says that there's no significant change in his vision or pain compared to yesterday. Objective Vitals Vital Signs Date Time Temp Pulse Resp B/P Pulse Ox O2 Delivery O2 Flow Rate FiO2 12/10/16 06:00 68 12/10/16 04:00 70 12/10/16 04:00 98.0 70 15 107/71 96 12/10/16 02:00 59 12/10/16 00:00 98.0 59 16 100/75 97 12/09/16 21:03 97 21 12/09/16 20:00 98.6 60 15 110/66 98 12/09/16 16:00 98 Room Air 12/09/16 16:00 98.3 52 16 94/59 98 12/09/16 14:00 53 16 92/55 97 12/09/16 12:00 97 Room Air 12/09/16 12:00 97.6 56 16 120/70 97 12/09/16 10:15 16 12/09/16 10:00 96 Room Air 12/09/16 10:00 57 16 108/69 12/09/16 08:45 98 12/09/16 08:00 Room Air 12/09/16 08:00 98.3 59 16 109/77 I/O 12/09/16 12/09/16 12/09/16 12/10/16 12/10/16 12/10/16 07:00 15:00 23:00 07:00 15:00 23:00 Intake Total 0 ml 1410 ml 240 ml Output Total 0 ml 800 ml 500 ml Balance 0 ml 610 ml -260 ml Intake Oral 0 ml 1410 ml 240 ml Output Urine Total 0 ml 800 ml 500 ml # Voids 1 # Bowel Movements 0 Result Diagram: 12/06/16 0542 12/06/16 0542 Objective Remarks GENERAL: This is a well-nourished, well-developed patient, in no apparent distress. HEENT; left eye is mildly swollen CARDIOVASCULAR: Regular rate and regular rhythm without murmurs, gallops, or rubs. RESPIRATORY: Clear to auscultation. Breath sounds equal bilaterally. No wheezes , rales, or rhonchi. GASTROINTESTINAL: Abdomen soft, non-tender, nondistended. Normal, active bowel sounds MUSCULOSKELETAL: Extremities without clubbing, cyanosis, or edema. NEURO: Alert & Oriented x4 to person, place, time, situation. Moves all ext x4 Procedures Tap and injection of right eye with vancomycin, gentamicin and triamcinolone Medications and IVs Current Medications Sodium Chloride (NS Flush) 2 ml UNSCH PRN IV FLUSH FLUSH AFTER USING IV ACCESS ; Start 12/05/16 at 20:15 Sodium Chloride (NS Flush) 2 ml BID IV FLUSH Last administered on 12/09/16 20: 23; Start 12/05/16 at 21:00 Acetaminophen (Tylenol) 650 mg Q4H PRN PO TEMP > 100.4; Start 12/05/16 at 20:15 Ondansetron HCl (Zofran Inj) 4 mg Q6H PRN IVP NAUSEA OR VOMITING; Start at 20:15 Naloxone HCl (Narcan Inj) 0.4 mg UNSCH PRN IV SEE LABEL COMMENTS; Start at 20:15 Senna/Docusate Sodium (Kelli-Colace) 1 tab BID PO Last administered on 20:24; Start 12/05/16 at 21:00 Magnesium Hydroxide (Milk Of Magnuy Liq) 30 ml Q12H PRN PO MILD - MODERATE CONSTIPATION; Start 12/05/16 at 20:15 Tobramycin Sulfate (Tobrex 0.3% Opth Soln) 1 drop Q30M RIGHT EYE ; Start at 22:00; Status Cancel Non-Formulary Medication 1 drop Every 30 minutes RIGHT EYE ; Start 12/05/16 at 20:45; Stop 12/05/16 at 21:30; Status DC Non-Formulary Medication 0.1 ML INTRA-VITREAL INJECTION UNSCH RIGHT EYE ; Start 12/05/16 at 21:00; Stop 12/06/16 at 03:00; Status DC Non-Formulary Medication 0.1 ML INTRA-VITREAL INJECTION UNSCH RIGHT EYE ; Start 12/05/16 at 21:00; Stop 12/06/16 at 03:00; Status DC Triamcinolone Acetonide (Triesence Opth Inj) 4 mg UNSCH RIGHT EYE ; Start at 21:00 Non-Formulary Medication 1 DROP IN THE RIGHT ... Q1H RIGHT EYE Last administered on 12/06/16 08:17; Start 12/05/16 at 21:15; Stop 12/06/16 at 08:16 ; Status DC Non-Formulary Medication 1 DROP TO RIGHT EYE UNSCHEDU... Q1H RIGHT EYE Last administered on 12/09/16 06:09; Start 12/05/16 at 21:15; Stop 12/09/16 at 07:30 ; Status DC Atropine Sulfate (Isopto Atropine 1% Opth Soln) 1 drop TID RIGHT EYE Last administered on 12/09/16 17:55; Start 12/05/16 at 22:00 Prednisolone Acetate (Pred Forte 1% Opth Susp) 1 drop Q1H RIGHT EYE Last administered on 12/08/16 22:23; Start 12/05/16 at 22:00; Status Hold Proparacaine HCl (Alcaine 0.5% Opht Soln) 1 drop UNSCH PRN RIGHT EYE PROCEDURE ; Start 12/05/16 at 22:00; Stop 12/06/16 at 21:59; Status DC Lidocaine ([place] Pf 3.5% Opth Gel) 1 drop UNSCH PRN RIGHT EYE PROCEDURE; Start 12/05/16 at 22:00; Stop 12/06/16 at 21:59; Status Cancel Povidone Iodine (Betadine 10% Oint) 1 pkt UNSCH PRN .XX PROCEDURE; Start at 22:15; Stop 12/06/16 at 22:14; Status DC Cocaine HCl (Cocaine 4% Top Soln) 4 ml ONCE ONCE TOPICAL Last administered on 12/05/16 22:45; Start 12/05/16 at 22:45; Stop 12/05/16 at 22:46; Status DC Acetaminophen/ Hydrocodone Bitart ([place] 10-325 Mg) 1 tab Q3H PRN PO Last administered on 12/06/16 03:42; Start 12/06/16 at 00:15; Stop 12/06/16 at 09:17 ; Status DC Acetaminophen/ Hydrocodone Bitart ([place] 10-325 Mg) 1 tab Q4H PRN PO pain Last administered on 12/10/16 02:24; Start 12/06/16 at 12:00 Non-Formulary Medication 1 DROP IN THE RIGHT EYE Q1H Q1H RIGHT EYE Last administered on 12/08/16 22:22; Start 12/07/16 at 22:00; Stop 12/08/16 at 22:33 ; Status DC Non-Formulary Medication AMPHOTERICIN B OPHTHALMIC EYE DROPS 0.5%... Q30M RIGHT EYE Last administered on 12/09/16 20:19; Start 12/08/16 at 20:30; Stop at 20:01; Status DC Non-Formulary Medication AMPHOTERICIN B OPHTHALMIC EYE DROPS 0.5%... Q1H RIGHT EYE Last administered on 12/10/16 06:15; Start 12/09/16 at 20:30 Non-Formulary Medication 1 DROP IN THE RIGHT EYE Q2H Q2H RIGHT EYE Last administered on 12/10/16 06:14; Start 12/08/16 at 23:00 Miscellaneous Information Patient in critical care unit? Ass... Q361D .XX ; Start 12/09/16 at 00:00 Chlorhexidine Gluconate (Chlorhexidine 2% Cloth) 3 pack DAILY@04 TOPICAL ; Start 12/09/16 at 04:00; Stop 12/13/16 at 04:01 Chlorhexidine Gluconate (Chlorhexidine 2% Cloth) 3 pack UNSCH PRN TOPICAL HYGIENIC CARE; Start 12/09/16 at 23:45; Stop 12/14/16 at 23:44 Non-Formulary Medication 1 DROP TO RIGHT EYE Q2H... Q2H RIGHT EYE Last administered on 12/10/16 05:12; Start 12/09/16 at 08:00 A/P Assessment and Plan A/P Endophthalmitis s/p Tap and injection of right eye with vancomycin, gentamicin and triamcinolone by Dr. Watson. Improving pain. Cultures with mold and gram positive cocci- awaiting final ID and sensitivity Continue amphotericin, vancomycin, tobramycin, atropine eyedrops per ophthalmology. Pain management with Lortab ophthalmology following. DVT prophylaxis with SCDs Discharge Planning dc planning when cleared by ophthalmology. Keli Velásquez MD Dec 10, 2016 07:57
[2016-12-10] MEDS: DOCUSATE SODIUM 50 MG/SENNA 8.6 MG TAB PO SCH ×2 (08:40→20:42)
[2016-12-10] MEDS: SODIUM CHLORIDE 0.9% FLUSH 10 ML FLUSH IV FLUSH SCH ×2 (08:40→20:04)
[2016-12-10] MEDS: ATROPINE SULFATE 1% OPHT SOLN 5 ML BTL RIGHT EYE SCH ×3 (08:42→18:22)
[2016-12-11] VITALS (7 sets, daily range): BP systolic 99–123; BP diastolic 56–81; PULSE 58; RESP 14–18; TEMP 97.8–98.3; O2SAT 96–98
[2016-12-11] MEDS: AMPHOTERICIN B RIGHT EYE SCH ×23 (00:30→22:52)
[2016-12-11] MEDS: VANCOMYCIN RIGHT EYE SCH ×12 (01:00→22:52)
[2016-12-11] MEDS: [UNRECOGNIZED DRUG - OTHER] RIGHT EYE SCH ×12 (01:00→22:52)
[2016-12-11] MEDS: TOBRAMYCIN RIGHT EYE SCH ×12 (02:00→22:51)
[2016-12-11] MEDS: CHLORHEXIDINE GLUCONATE 2 % 1 PACK (2 CLOTHS)(taper/protocol) TOPICAL SCH (03:39)
[2016-12-11] MEDS: SODIUM CHLORIDE 0.9% FLUSH 10 ML FLUSH IV FLUSH SCH ×2 (08:29→22:51)
[2016-12-11] MEDS: DOCUSATE SODIUM 50 MG/SENNA 8.6 MG TAB PO SCH (08:29)
[2016-12-11] MEDS: ATROPINE SULFATE 1% OPHT SOLN 5 ML BTL RIGHT EYE SCH ×3 (10:16→18:12)
--- NOTE | 2016-12-11 11:28 | HHI.PR ---
Subjective Remarks resting comfortably with no distress. no fever. complaining of constipation. Objective Vitals Vital Signs Date Time Temp Pulse Resp B/P Pulse Ox O2 Delivery O2 Flow Rate FiO2 12/11/16 08:00 98.1 14 115/70 12/11/16 04:00 106/73 12/11/16 00:00 98.3 18 99/56 12/10/16 20:00 98.4 20 119/73 97 12/10/16 19:54 99 21 12/10/16 16:00 98.3 55 20 119/73 97 12/10/16 15:00 55 12/10/16 12:00 98.8 64 17 91/54 98 I/O 12/10/16 12/10/16 12/10/16 12/11/16 12/11/16 12/11/16 07:00 15:00 23:00 07:00 15:00 23:00 Intake Total 240 ml 840 ml 240 ml Output Total 500 ml 675 ml 500 ml Balance -260 ml 165 ml -260 ml Intake Oral 240 ml 840 ml 240 ml Output Urine Total 500 ml 675 ml 500 ml # Voids 1 1 # Bowel Movements 0 0 Objective Remarks GENERAL: This is a well-nourished, well-developed patient, in no apparent distress. HEENT; left eye is mildly swollen CARDIOVASCULAR: Regular rate and regular rhythm without murmurs, gallops, or rubs. RESPIRATORY: Clear to auscultation. Breath sounds equal bilaterally. No wheezes , rales, or rhonchi. GASTROINTESTINAL: Abdomen soft, non-tender, nondistended. Normal, active bowel sounds MUSCULOSKELETAL: Extremities without clubbing, cyanosis, or edema. NEURO: Alert & Oriented x4 to person, place, time, situation. Moves all ext x4 Procedures Tap and injection of right eye with vancomycin, gentamicin and triamcinolone Medications and IVs Current Medications Sodium Chloride (NS Flush) 2 ml UNSCH PRN IV FLUSH FLUSH AFTER USING IV ACCESS ; Start 12/05/16 at 20:15 Sodium Chloride (NS Flush) 2 ml BID IV FLUSH Last administered on 12/11/16t 08: 29; Start 12/05/16 at 21:00 Acetaminophen (Tylenol) 650 mg Q4H PRN PO TEMP > 100.4; Start 12/05/16 at 20:15 Ondansetron HCl (Zofran Inj) 4 mg Q6H PRN IVP NAUSEA OR VOMITING; Start at 20:15 Naloxone HCl (Narcan Inj) 0.4 mg UNSCH PRN IV SEE LABEL COMMENTS; Start at 20:15 Senna/Docusate Sodium (Kelli-Colace) 1 tab BID PO Last administered on 20:42; Start 12/05/16 at 21:00 Magnesium Hydroxide (Milk Of Magnesia Liq) 30 ml Q12H PRN PO MILD - MODERATE CONSTIPATION; Start 12/05/16 at 20:15 Tobramycin Sulfate (Tobrex 0.3% Opth Soln) 1 drop Q30M RIGHT EYE ; Start at 22:00; Status Cancel Non-Formulary Medication 1 drop Every 30 minutes RIGHT EYE ; Start 12/05/16 at 20:45; Stop 12/05/16 at 21:30; Status DC Non-Formulary Medication 0.1 ML INTRA-VITREAL INJECTION UNSCH RIGHT EYE ; Start 12/05/16 at 21:00; Stop 12/06/16 at 03:00; Status DC Non-Formulary Medication 0.1 ML INTRA-VITREAL INJECTION UNSCH RIGHT EYE ; Start 12/05/16 at 21:00; Stop 12/06/16 at 03:00; Status DC Triamcinolone Acetonide (Triesence Opth Inj) 4 mg UNSCH RIGHT EYE ; Start at 21:00 Non-Formulary Medication 1 DROP IN THE RIGHT ... Q1H RIGHT EYE Last administered on 12/06/16 08:17; Start 12/05/16 at 21:15; Stop 12/06/16 at 08:16 ; Status DC Non-Formulary Medication 1 DROP TO RIGHT EYE UNSCHEDU... Q1H RIGHT EYE Last administered on 12/09/16 06:09; Start 12/05/16 at 21:15; Stop 12/09/16 at 07:30 ; Status DC Atropine Sulfate (Isopto Atropine 1% Opth Soln) 1 drop TID RIGHT EYE Last administered on 12/11/16t 10:16; Start 12/05/16 at 22:00 Prednisolone Acetate (Pred Forte 1% Opth Susp) 1 drop Q1H RIGHT EYE Last administered on 12/08/16 22:23; Start 12/05/16 at 22:00; Status Hold Proparacaine HCl (Alcaine 0.5% Opht Soln) 1 drop UNSCH PRN RIGHT EYE PROCEDURE ; Start 12/05/16 at 22:00; Stop 12/06/16 at 21:59; Status DC Lidocaine ([place] Pf 3.5% Opth Gel) 1 drop UNSCH PRN RIGHT EYE PROCEDURE; Start 12/05/16 at 22:00; Stop 12/06/16 at 21:59; Status Cancel Povidone Iodine (Betadine 10% Oint) 1 pkt UNSCH PRN .XX PROCEDURE; Start at 22:15; Stop 12/06/16 at 22:14; Status DC Cocaine HCl (Cocaine 4% Top Soln) 4 ml ONCE ONCE TOPICAL Last administered on 12/05/16 22:45; Start 12/05/16 at 22:45; Stop 12/05/16 at 22:46; Status DC Acetaminophen/ Hydrocodone Bitart ([place] 10-325 Mg) 1 tab Q3H PRN PO Last administered on 12/06/16 03:42; Start 12/06/16 at 00:15; Stop 12/06/16 at 09:17 ; Status DC Acetaminophen/ Hydrocodone Bitart ([place] 10-325 Mg) 1 tab Q4H PRN PO pain Last administered on 12/10/16 23:49; Start 12/06/16 at 12:00 Non-Formulary Medication 1 DROP IN THE RIGHT EYE Q1H Q1H RIGHT EYE Last administered on 12/08/16 22:22; Start 12/07/16 at 22:00; Stop 12/08/16 at 22:33 ; Status DC Non-Formulary Medication AMPHOTERICIN B OPHTHALMIC EYE DROPS 0.5%... Q30M RIGHT EYE Last administered on 12/09/16 20:19; Start 12/08/16 at 20:30; Stop at 20:01; Status DC Non-Formulary Medication AMPHOTERICIN B OPHTHALMIC EYE DROPS 0.5%... Q1H RIGHT EYE Last administered on 12/11/16 11:14; Start 12/09/16 at 20:30 Non-Formulary Medication 1 DROP IN THE RIGHT EYE Q2H Q2H RIGHT EYE Last administered on 12/11/16 11:13; Start 12/08/16 at 23:00 Miscellaneous Information Patient in critical care unit? Ass... Q361D .XX ; Start 12/09/16 at 00:00 Chlorhexidine Gluconate (Chlorhexidine 2% Cloth) 3 pack DAILY@04 TOPICAL ; Start 12/09/16 at 04:00; Stop 12/13/16 at 04:01 Chlorhexidine Gluconate (Chlorhexidine 2% Cloth) 3 pack UNSCH PRN TOPICAL HYGIENIC CARE; Start 12/09/16 at 23:45; Stop 12/14/16 at 23:44 Non-Formulary Medication 1 DROP TO RIGHT EYE Q2H... Q2H RIGHT EYE Last administered on 12/11/16 10:17; Start 12/09/16 at 08:00 A/P Assessment and Plan A/P Endophthalmitis s/p Tap and injection of right eye with vancomycin, gentamicin and triamcinolone by Dr. Watson. Improving pain. Cultures with mold and staph coag. negative- awaiting final ID and sensitivity Continue amphotericin, vancomycin, tobramycin, atropine eyedrops per ophthalmology. Pain management with Lortab ophthalmology following. constipation; laxatives as needed. DVT prophylaxis with SCDs Discharge Planning dc planning when cleared by ophthalmology. awaiting final culture ID and sensitivity. Keli Velásquez MD Dec 11, 2016 11:28
[2016-12-11] MEDS: BISACODYL EC 5 MG TABEC PO PRN (18:13)
[2016-12-12] VITALS (9 sets, daily range): BP systolic 101–118; BP diastolic 58–78; PULSE 60–63; RESP 12–18; TEMP 97.7–98.7; O2SAT 96–98
[2016-12-12] MEDS: TOBRAMYCIN RIGHT EYE SCH ×12 (00:21→22:15)
[2016-12-12] MEDS: AMPHOTERICIN B RIGHT EYE SCH ×25 (00:21→23:22)
[2016-12-12] MEDS: VANCOMYCIN RIGHT EYE SCH ×12 (02:01→23:22)
[2016-12-12] MEDS: [UNRECOGNIZED DRUG - OTHER] RIGHT EYE SCH ×12 (02:01→23:22)
[2016-12-12] MEDS: ACETAMINOPHEN 325 MG TAB PO PRN ×2 (03:34→10:37)
[2016-12-12] MEDS: CHLORHEXIDINE GLUCONATE 2 % 1 PACK (2 CLOTHS)(taper/protocol) TOPICAL SCH (04:00)
--- NOTE | 2016-12-12 07:45 | HHI.PR ---
Subjective Remarks in no acute distress. complaining of some burning in the right eye. still with no BM. d/w the RN. Objective Vitals Vital Signs Date Time Temp Pulse Resp B/P Pulse Ox O2 Delivery O2 Flow Rate FiO2 12/12/16 04:00 98.2 101/58 12/12/16 03:00 101/62 12/12/16 00:00 103/64 12/12/16 00:00 97.7 18 103/64 97 12/11/16 20:00 98.0 18 123/81 98 12/11/16 16:00 97.8 14 121/70 98 12/11/16 15:00 58 12/11/16 12:00 98.2 16 119/73 96 12/11/16 08:00 98.1 14 115/70 I/O 12/11/16 12/11/16 12/11/16 12/12/16 12/12/16 12/12/16 07:00 15:00 23:00 07:00 15:00 23:00 Intake Total 240 ml 250 ml 240 ml 240 ml Output Total 500 ml 650 ml 400 ml 600 ml Balance -260 ml -400 ml -160 ml -360 ml Intake Oral 240 ml 250 ml 240 ml 240 ml Output Urine Total 500 ml 650 ml 400 ml 600 ml # Voids 1 1 # Bowel Movements 0 0 0 Objective Remarks GENERAL: This is a well-nourished, well-developed patient, in no apparent distress. HEENT; left eye is mildly swollen CARDIOVASCULAR: Regular rate and regular rhythm without murmurs, gallops, or rubs. RESPIRATORY: Clear to auscultation. Breath sounds equal bilaterally. No wheezes , rales, or rhonchi. GASTROINTESTINAL: Abdomen soft, non-tender, nondistended. Normal, active bowel sounds MUSCULOSKELETAL: Extremities without clubbing, cyanosis, or edema. NEURO: Alert & Oriented x4 to person, place, time, situation. Moves all ext x4 Procedures Tap and injection of right eye with vancomycin, gentamicin and triamcinolone Medications and IVs Current Medications Sodium Chloride (NS Flush) 2 ml UNSCH PRN IV FLUSH FLUSH AFTER USING IV ACCESS ; Start 12/05/16 at 20:15 Sodium Chloride (NS Flush) 2 ml BID IV FLUSH Last administered on 12/11/16t 22: 51; Start 12/05/16 at 21:00 Acetaminophen (Tylenol) 650 mg Q4H PRN PO TEMP > 100.4; Start 12/05/16 at 20:15 Ondansetron HCl (Zofran Inj) 4 mg Q6H PRN IVP NAUSEA OR VOMITING; Start at 20:15 Naloxone HCl (Narcan Inj) 0.4 mg UNSCH PRN IV SEE LABEL COMMENTS; Start at 20:15 Senna/Docusate Sodium (Kelli-Colace) 1 tab BID PO Last administered on 20:42; Start 12/05/16 at 21:00; Stop 12/11/16 at 17:48; Status DC Magnesium Hydroxide (Milk Of Magnesia Liq) 30 ml Q12H PRN PO MILD - MODERATE CONSTIPATION Last administered on 12/11/16 13:12; Start 12/05/16 at 20:15; Stop 12/11/16 at 17:48; Status DC Tobramycin Sulfate (Tobrex 0.3% Opth Soln) 1 drop Q30M RIGHT EYE ; Start at 22:00; Status Cancel Non-Formulary Medication 1 drop Every 30 minutes RIGHT EYE ; Start 12/05/16 at 20:45; Stop 12/05/16 at 21:30; Status DC Non-Formulary Medication 0.1 ML INTRA-VITREAL INJECTION UNSCH RIGHT EYE ; Start 12/05/16 at 21:00; Stop 12/06/16 at 03:00; Status DC Non-Formulary Medication 0.1 ML INTRA-VITREAL INJECTION UNSCH RIGHT EYE ; Start 12/05/16 at 21:00; Stop 12/06/16 at 03:00; Status DC Triamcinolone Acetonide (Triesence Opth Inj) 4 mg UNSCH RIGHT EYE ; Start at 21:00 Non-Formulary Medication 1 DROP IN THE RIGHT ... Q1H RIGHT EYE Last administered on 12/06/16 08:17; Start 12/05/16 at 21:15; Stop 12/06/16 at 08:16 ; Status DC Non-Formulary Medication 1 DROP TO RIGHT EYE UNSCHEDU... Q1H RIGHT EYE Last administered on 12/09/16 06:09; Start 12/05/16 at 21:15; Stop 12/09/16 at 07:30 ; Status DC Atropine Sulfate (Isopto Atropine 1% Opth Soln) 1 drop TID RIGHT EYE Last administered on 12/11/16 18:12; Start 12/05/16 at 22:00 Prednisolone Acetate (Pred Forte 1% Opth Susp) 1 drop Q1H RIGHT EYE Last administered on 12/08/16 22:23; Start 12/05/16 at 22:00; Status Hold Proparacaine HCl (Alcaine 0.5% Opht Soln) 1 drop UNSCH PRN RIGHT EYE PROCEDURE ; Start 12/05/16 at 22:00; Stop 12/06/16 at 21:59; Status DC Lidocaine ([place] Pf 3.5% Opth Gel) 1 drop UNSCH PRN RIGHT EYE PROCEDURE; Start 12/05/16 at 22:00; Stop 12/06/16 at 21:59; Status Cancel Povidone Iodine (Betadine 10% Oint) 1 pkt UNSCH PRN .XX PROCEDURE; Start at 22:15; Stop 12/06/16 at 22:14; Status DC Cocaine HCl (Cocaine 4% Top Soln) 4 ml ONCE ONCE TOPICAL Last administered on 12/05/16 22:45; Start 12/05/16 at 22:45; Stop 12/05/16 at 22:46; Status DC Acetaminophen/ Hydrocodone Bitart ([place] 10-325 Mg) 1 tab Q3H PRN PO Last administered on 12/06/16 03:42; Start 12/06/16 at 00:15; Stop 12/06/16 at 09:17 ; Status DC Acetaminophen/ Hydrocodone Bitart ([place] 10-325 Mg) 1 tab Q4H PRN PO pain Last administered on 12/10/16 23:49; Start 12/06/16 at 12:00; Stop 12/11/16 at 17:48 ; Status DC Non-Formulary Medication 1 DROP IN THE RIGHT EYE Q1H Q1H RIGHT EYE Last administered on 12/08/16 22:22; Start 12/07/16 at 22:00; Stop 12/08/16 at 22:33 ; Status DC Non-Formulary Medication AMPHOTERICIN B OPHTHALMIC EYE DROPS 0.5%... Q30M RIGHT EYE Last administered on 12/09/16 20:19; Start 12/08/16 at 20:30; Stop at 20:01; Status DC Non-Formulary Medication AMPHOTERICIN B OPHTHALMIC EYE DROPS 0.5%... Q1H RIGHT EYE Last administered on 12/12/16 07:14; Start 12/09/16 at 20:30 Non-Formulary Medication 1 DROP IN THE RIGHT EYE Q2H Q2H RIGHT EYE Last administered on 12/12/16 06:55; Start 12/08/16 at 23:00 Miscellaneous Information Patient in critical care unit? Ass... Q361D .XX ; Start 12/09/16 at 00:00 Chlorhexidine Gluconate (Chlorhexidine 2% Cloth) 3 pack DAILY@04 TOPICAL ; Start 12/09/16 at 04:00; Stop 12/13/16 at 04:01 Chlorhexidine Gluconate (Chlorhexidine 2% Cloth) 3 pack UNSCH PRN TOPICAL HYGIENIC CARE; Start 12/09/16 at 23:45; Stop 12/14/16 at 23:44 Non-Formulary Medication 1 DROP TO RIGHT EYE Q2H... Q2H RIGHT EYE Last administered on 12/12/16 06:54; Start 12/09/16 at 08:00 Bisacodyl (Dulcolax Ec) 10 mg DAILY PRN PO CONSTIPATION Last administered on 18:13; Start 12/11/16 at 18:00 Acetaminophen (Tylenol) 650 mg Q4H PRN PO PAIN SCALE 1 TO 10 Last administered on 12/12/16 03:34; Start 12/11/16 at 18:00 A/P Assessment and Plan A/P Endophthalmitis s/p Tap and injection of right eye with vancomycin, gentamicin and triamcinolone by Dr. Watson. Improving pain. Cultures with mold and staph coag. negative- awaiting final ID and sensitivity Continue amphotericin, vancomycin, tobramycin, atropine eyedrops per ophthalmology. Pain management with Lortab right cornea culture with mold, staph epidermidis and staph auricularis ophthalmology following. constipation; laxatives as needed; will add miralax DVT prophylaxis with SCDs Discharge Planning dc planning when cleared by ophthalmology. awaiting ophthalmology f/u and recommendations. Keli Velásquez MD Dec 12, 2016 07:45
[2016-12-12] MEDS: SODIUM CHLORIDE 0.9% FLUSH 10 ML FLUSH IV FLUSH SCH ×2 (09:21→20:18)
[2016-12-12] MEDS: ATROPINE SULFATE 1% OPHT SOLN 5 ML BTL RIGHT EYE SCH ×3 (09:21→18:17)
[2016-12-12] MEDS: POLYETHYLENE GLYCOL 17 GM PKG PO PRN (09:26)
[2016-12-13] VITALS (9 sets, daily range): BP systolic 97–118; BP diastolic 60–82; PULSE 60–68; RESP 12–16; TEMP 98.6–98.9; O2SAT 95–98
[2016-12-13] MEDS: AMPHOTERICIN B RIGHT EYE SCH ×22 (00:24→21:45)
[2016-12-13] MEDS: TOBRAMYCIN RIGHT EYE SCH (00:24)
[2016-12-13] MEDS: VANCOMYCIN RIGHT EYE SCH ×11 (01:28→21:45)
[2016-12-13] MEDS: [UNRECOGNIZED DRUG - OTHER] RIGHT EYE SCH ×11 (01:28→21:45)
[2016-12-13] MEDS: CHLORHEXIDINE GLUCONATE 2 % 1 PACK (2 CLOTHS)(taper/protocol) TOPICAL SCH (04:00)
--- NOTE | 2016-12-13 07:50 | HHI.PR ---
Subjective Remarks in no acute distress. no significant change in his right eye. no BM yet. Objective Vitals Vital Signs Date Time Temp Pulse Resp B/P Pulse Ox O2 Delivery O2 Flow Rate FiO2 12/13/16 04:00 98.7 60 12 112/82 97 12/13/16 00:00 98.8 63 14 113/77 98 12/12/16 23:00 63 12/12/16 20:00 98.6 60 12 106/62 97 12/12/16 16:00 98.7 118/78 97 12/12/16 15:00 62 12/12/16 12:00 98.5 96 12/12/16 08:00 97.7 16 105/72 98 I/O 12/12/16 12/12/16 12/12/16 12/13/16 12/13/16 12/13/16 07:00 15:00 23:00 07:00 15:00 23:00 Intake Total 240 ml 240 ml 150 ml 240 ml Output Total 600 ml 900 ml 350 ml 400 ml Balance -360 ml -660 ml -200 ml -160 ml Intake Oral 240 ml 240 ml 150 ml 240 ml Output Urine Total 600 ml 900 ml 350 ml 400 ml # Voids 2 # Bowel Movements 0 0 0 0 Objective Remarks GENERAL: This is a well-nourished, well-developed patient, in no apparent distress. HEENT; left eye is mildly swollen CARDIOVASCULAR: Regular rate and regular rhythm without murmurs, gallops, or rubs. RESPIRATORY: Clear to auscultation. Breath sounds equal bilaterally. No wheezes , rales, or rhonchi. GASTROINTESTINAL: Abdomen soft, non-tender, nondistended. Normal, active bowel sounds MUSCULOSKELETAL: Extremities without clubbing, cyanosis, or edema. NEURO: Alert & Oriented x4 to person, place, time, situation. Moves all ext x4 Procedures Tap and injection of right eye with vancomycin, gentamicin and triamcinolone Medications and IVs Current Medications Sodium Chloride (NS Flush) 2 ml UNSCH PRN IV FLUSH FLUSH AFTER USING IV ACCESS ; Start 12/05/16 at 20:15 Sodium Chloride (NS Flush) 2 ml BID IV FLUSH Last administered on 12/12/16t 20: 18; Start 12/05/16 at 21:00 Acetaminophen (Tylenol) 650 mg Q4H PRN PO TEMP > 100.4; Start 12/05/16 at 20:15 Ondansetron HCl (Zofran Inj) 4 mg Q6H PRN IVP NAUSEA OR VOMITING; Start at 20:15 Naloxone HCl (Narcan Inj) 0.4 mg UNSCH PRN IV SEE LABEL COMMENTS; Start at 20:15 Senna/Docusate Sodium (Kelli-Colace) 1 tab BID PO Last administered on 20:42; Start 12/05/16 at 21:00; Stop 12/11/16 at 17:48; Status DC Magnesium Hydroxide (Milk Of Magnesia Liq) 30 ml Q12H PRN PO MILD - MODERATE CONSTIPATION Last administered on 12/11/16 13:12; Start 12/05/16 at 20:15; Stop 12/11/16 at 17:48; Status DC Tobramycin Sulfate (Tobrex 0.3% Opth Soln) 1 drop Q30M RIGHT EYE ; Start at 22:00; Status Cancel Non-Formulary Medication 1 drop Every 30 minutes RIGHT EYE ; Start 12/05/16 at 20:45; Stop 12/05/16 at 21:30; Status DC Non-Formulary Medication 0.1 ML INTRA-VITREAL INJECTION UNSCH RIGHT EYE ; Start 12/05/16 at 21:00; Stop 12/06/16 at 03:00; Status DC Non-Formulary Medication 0.1 ML INTRA-VITREAL INJECTION UNSCH RIGHT EYE ; Start 12/05/16 at 21:00; Stop 12/06/16 at 03:00; Status DC Triamcinolone Acetonide (Triesence Opth Inj) 4 mg UNSCH RIGHT EYE ; Start at 21:00 Non-Formulary Medication 1 DROP IN THE RIGHT ... Q1H RIGHT EYE Last administered on 12/06/16 08:17; Start 12/05/16 at 21:15; Stop 12/06/16 at 08:16 ; Status DC Non-Formulary Medication 1 DROP TO RIGHT EYE UNSCHEDU... Q1H RIGHT EYE Last administered on 12/09/16 06:09; Start 12/05/16 at 21:15; Stop 12/09/16 at 07:30 ; Status DC Atropine Sulfate (Isopto Atropine 1% Opth Soln) 1 drop TID RIGHT EYE Last administered on 12/12/16 18:17; Start 12/05/16 at 22:00 Prednisolone Acetate (Pred Forte 1% Opth Susp) 1 drop Q1H RIGHT EYE Last administered on 12/08/16 22:23; Start 12/05/16 at 22:00; Status Hold Proparacaine HCl (Alcaine 0.5% Opht Soln) 1 drop UNSCH PRN RIGHT EYE PROCEDURE ; Start 12/05/16 at 22:00; Stop 12/06/16 at 21:59; Status DC Lidocaine ([place] Pf 3.5% Opth Gel) 1 drop UNSCH PRN RIGHT EYE PROCEDURE; Start 12/05/16 at 22:00; Stop 12/06/16 at 21:59; Status Cancel Povidone Iodine (Betadine 10% Oint) 1 pkt UNSCH PRN .XX PROCEDURE; Start at 22:15; Stop 12/06/16 at 22:14; Status DC Cocaine HCl (Cocaine 4% Top Soln) 4 ml ONCE ONCE TOPICAL Last administered on 12/05/16 22:45; Start 12/05/16 at 22:45; Stop 12/05/16 at 22:46; Status DC Acetaminophen/ Hydrocodone Bitart ([place] 10-325 Mg) 1 tab Q3H PRN PO Last administered on 12/06/16 03:42; Start 12/06/16 at 00:15; Stop 12/06/16 at 09:17 ; Status DC Acetaminophen/ Hydrocodone Bitart ([place] 10-325 Mg) 1 tab Q4H PRN PO pain Last administered on 12/10/16 23:49; Start 12/06/16 at 12:00; Stop 12/11/16 at 17:48 ; Status DC Non-Formulary Medication 1 DROP IN THE RIGHT EYE Q1H Q1H RIGHT EYE Last administered on 12/08/16 22:22; Start 12/07/16 at 22:00; Stop 12/08/16 at 22:33 ; Status DC Non-Formulary Medication AMPHOTERICIN B OPHTHALMIC EYE DROPS 0.5%... Q30M RIGHT EYE Last administered on 12/09/16 20:19; Start 12/08/16 at 20:30; Stop at 20:01; Status DC Non-Formulary Medication AMPHOTERICIN B OPHTHALMIC EYE DROPS 0.5%... Q1H RIGHT EYE Last administered on 12/13/16 07:24; Start 12/09/16 at 20:30 Non-Formulary Medication 1 DROP IN THE RIGHT EYE Q2H Q2H RIGHT EYE Last administered on 12/13/16 07:24; Start 12/08/16 at 23:00 Miscellaneous Information Patient in critical care unit? Ass... Q361D .XX ; Start 12/09/16 at 00:00 Chlorhexidine Gluconate (Chlorhexidine 2% Cloth) 3 pack DAILY@04 TOPICAL Last administered on 12/13/16 04:00; Start 12/09/16 at 04:00; Stop 12/13/16 at 04:01 ; Status DC Chlorhexidine Gluconate (Chlorhexidine 2% Cloth) 3 pack UNSCH PRN TOPICAL HYGIENIC CARE; Start 12/09/16 at 23:45; Stop 12/14/16 at 23:44 Non-Formulary Medication 1 DROP TO RIGHT EYE Q2H... Q2H RIGHT EYE Last administered on 12/13/16 00:24; Start 12/09/16 at 08:00; Stop 12/13/16 at 00:43 ; Status DC Bisacodyl (Dulcolax Ec) 10 mg DAILY PRN PO CONSTIPATION Last administered on 18:13; Start 12/11/16 at 18:00 Acetaminophen (Tylenol) 650 mg Q4H PRN PO PAIN SCALE 1 TO 10 Last administered on 12/12/16 10:37; Start 12/11/16 at 18:00 Polyethylene Glycol (Miralax) 17 gm DAILY PRN PO IF DULCOLAX NOT EFFECTIVE Last administered on 12/12/16 09:26; Start 12/12/16 at 07:45 A/P Assessment and Plan A/P Endophthalmitis s/p Tap and injection of right eye with vancomycin, gentamicin and triamcinolone by Dr. Watson. Improving pain. Cultures with mold and staph coag. negative- awaiting final ID and sensitivity Continue amphotericin, vancomycin, tobramycin, atropine eyedrops per ophthalmology. Pain management with Lortab right cornea culture with mold, staph epidermidis and staph auricularis ophthalmology following; exam via slit lamp today. constipation; laxatives as needed; will add enema as needed. DVT prophylaxis with SCDs Discharge Planning dc planning when cleared by ophthalmology. awaiting ophthalmology f/u and recommendations. Keli Velásquez MD Dec 13, 2016 07:50
[2016-12-13] MEDS ORDERED: SOD PHOSPHATE/SOD BIPHOSPHATE (ADULT) ENEMA 133ML RECTAL PRN (08:00)
[2016-12-13] MEDS: SODIUM CHLORIDE 0.9% FLUSH 10 ML FLUSH IV FLUSH SCH ×2 (09:31→19:27)
[2016-12-13] MEDS: ATROPINE SULFATE 1% OPHT SOLN 5 ML BTL RIGHT EYE SCH ×3 (09:32→18:46)
[2016-12-13] MEDS ORDERED: [UNRECOGNIZED DRUG - REMARK] RIGHT EYE SCH ×2 (21:00→22:30)
[2016-12-13] MEDS: [UNRECOGNIZED DRUG - REMARK] RIGHT EYE SCH ×3 (22:29→23:34)
[2016-12-14] VITALS (7 sets, daily range): BP systolic 92–128; BP diastolic 61–83; PULSE 59–90; RESP 12–22; TEMP 98–98.9; O2SAT 96–100
[2016-12-14] MEDS: [UNRECOGNIZED DRUG - REMARK] RIGHT EYE SCH ×30 (00:34→23:04)
[2016-12-14] MEDS: [UNRECOGNIZED DRUG - OTHER] RIGHT EYE SCH ×8 (01:00→22:00)
[2016-12-14] MEDS: VANCOMYCIN RIGHT EYE SCH ×8 (01:00→22:00)
[2016-12-14] MEDS: AMPHOTERICIN B RIGHT EYE SCH ×6 (02:05→22:01)
--- NOTE | 2016-12-14 07:54 | HHI.PR ---
Subjective Remarks resting comfortably with no distress. no change in his right eye. no new complaints. Objective Vitals Vital Signs Date Time Temp Pulse Resp B/P Pulse Ox O2 Delivery O2 Flow Rate FiO2 12/14/16 04:00 98.9 63 13 97/61 97 12/14/16 00:00 98.8 60 12 92/62 98 12/13/16 23:00 62 12/13/16 20:00 98.6 64 14 97/60 97 12/13/16 16:00 98.8 65 12 102/66 95 12/13/16 16:00 98.9 68 16 118/74 96 12/13/16 15:00 68 12/13/16 12:00 98.8 65 12 102/66 95 12/13/16 08:00 98.6 64 14 110/67 96 I/O 12/13/16 12/13/16 12/13/16 12/14/16 12/14/16 12/14/16 07:00 15:00 23:00 07:00 15:00 23:00 Intake Total 240 ml 722 ml 240 ml 240 ml Output Total 400 ml 450 ml 600 ml 450 ml Balance -160 ml 272 ml -360 ml -210 ml Intake Oral 240 ml 720 ml 240 ml 240 ml IV Total 2 ml Output Urine Total 400 ml 450 ml 600 ml 450 ml # Bowel Movements 0 0 0 0 Objective Remarks GENERAL: This is a well-nourished, well-developed patient, in no apparent distress. HEENT; left eye is mildly swollen CARDIOVASCULAR: Regular rate and regular rhythm without murmurs, gallops, or rubs. RESPIRATORY: Clear to auscultation. Breath sounds equal bilaterally. No wheezes , rales, or rhonchi. GASTROINTESTINAL: Abdomen soft, non-tender, nondistended. Normal, active bowel sounds MUSCULOSKELETAL: Extremities without clubbing, cyanosis, or edema. NEURO: Alert & Oriented x4 to person, place, time, situation. Moves all ext x4 Procedures Tap and injection of right eye with vancomycin, gentamicin and triamcinolone Medications and IVs Current Medications Sodium Chloride (NS Flush) 2 ml UNSCH PRN IV FLUSH FLUSH AFTER USING IV ACCESS ; Start 12/05/16 at 20:15 Sodium Chloride (NS Flush) 2 ml BID IV FLUSH Last administered on 12/13/16t 19: 27; Start 12/05/16 at 21:00 Acetaminophen (Tylenol) 650 mg Q4H PRN PO TEMP > 100.4; Start 12/05/16 at 20:15 Ondansetron HCl (Zofran Inj) 4 mg Q6H PRN IVP NAUSEA OR VOMITING; Start at 20:15 Naloxone HCl (Narcan Inj) 0.4 mg UNSCH PRN IV SEE LABEL COMMENTS; Start at 20:15 Senna/Docusate Sodium (Kelli-Colace) 1 tab BID PO Last administered on 20:42; Start 12/05/16 at 21:00; Stop 12/11/16 at 17:48; Status DC Magnesium Hydroxide (Milk Of Magnyu Liq) 30 ml Q12H PRN PO MILD - MODERATE CONSTIPATION Last administered on 12/11/16 13:12; Start 12/05/16 at 20:15; Stop 12/11/16 at 17:48; Status DC Tobramycin Sulfate (Tobrex 0.3% Opth Soln) 1 drop Q30M RIGHT EYE ; Start at 22:00; Status Cancel Non-Formulary Medication 1 drop Every 30 minutes RIGHT EYE ; Start 12/05/16 at 20:45; Stop 12/05/16 at 21:30; Status DC Non-Formulary Medication 0.1 ML INTRA-VITREAL INJECTION UNSCH RIGHT EYE ; Start 12/05/16 at 21:00; Stop 12/06/16 at 03:00; Status DC Non-Formulary Medication 0.1 ML INTRA-VITREAL INJECTION UNSCH RIGHT EYE ; Start 12/05/16 at 21:00; Stop 12/06/16 at 03:00; Status DC Triamcinolone Acetonide (Triesence Opth Inj) 4 mg UNSCH RIGHT EYE ; Start at 21:00 Non-Formulary Medication 1 DROP IN THE RIGHT ... Q1H RIGHT EYE Last administered on 12/06/16 08:17; Start 12/05/16 at 21:15; Stop 12/06/16 at 08:16 ; Status DC Non-Formulary Medication 1 DROP TO RIGHT EYE UNSCHEDU... Q1H RIGHT EYE Last administered on 12/09/16 06:09; Start 12/05/16 at 21:15; Stop 12/09/16 at 07:30 ; Status DC Atropine Sulfate (Isopto Atropine 1% Opth Soln) 1 drop TID RIGHT EYE Last administered on 12/13/16 18:46; Start 12/05/16 at 22:00 Prednisolone Acetate (Pred Forte 1% Opth Susp) 1 drop Q1H RIGHT EYE Last administered on 12/08/16 22:23; Start 12/05/16 at 22:00; Status Hold Proparacaine HCl (Alcaine 0.5% Opht Soln) 1 drop UNSCH PRN RIGHT EYE PROCEDURE ; Start 12/05/16 at 22:00; Stop 12/06/16 at 21:59; Status DC Lidocaine ([place] Pf 3.5% Opth Gel) 1 drop UNSCH PRN RIGHT EYE PROCEDURE; Start 12/05/16 at 22:00; Stop 12/06/16 at 21:59; Status Cancel Povidone Iodine (Betadine 10% Oint) 1 pkt UNSCH PRN .XX PROCEDURE; Start at 22:15; Stop 12/06/16 at 22:14; Status DC Cocaine HCl (Cocaine 4% Top Soln) 4 ml ONCE ONCE TOPICAL Last administered on 12/05/16 22:45; Start 12/05/16 at 22:45; Stop 12/05/16 at 22:46; Status DC Acetaminophen/ Hydrocodone Bitart ([place] 10-325 Mg) 1 tab Q3H PRN PO Last administered on 12/06/16 03:42; Start 12/06/16 at 00:15; Stop 12/06/16 at 09:17 ; Status DC Acetaminophen/ Hydrocodone Bitart ([place] 10-325 Mg) 1 tab Q4H PRN PO pain Last administered on 12/10/16 23:49; Start 12/06/16 at 12:00; Stop 12/11/16 at 17:48 ; Status DC Non-Formulary Medication 1 DROP IN THE RIGHT EYE Q1H Q1H RIGHT EYE Last administered on 12/08/16 22:22; Start 12/07/16 at 22:00; Stop 12/08/16 at 22:33 ; Status DC Non-Formulary Medication AMPHOTERICIN B OPHTHALMIC EYE DROPS 0.5%... Q30M RIGHT EYE Last administered on 12/09/16 20:19; Start 12/08/16 at 20:30; Stop at 20:01; Status DC Non-Formulary Medication AMPHOTERICIN B OPHTHALMIC EYE DROPS 0.5%... Q1H RIGHT EYE Last administered on 12/13/16 21:45; Start 12/09/16 at 20:30; Stop at 22:24; Status DC Non-Formulary Medication 1 DROP IN THE RIGHT EYE Q2H Q2H RIGHT EYE Last administered on 12/13/16 21:45; Start 12/08/16 at 23:00; Stop 12/13/16 at 22:21 ; Status DC Miscellaneous Information Patient in critical care unit? Ass... Q361D .XX ; Start 12/09/16 at 00:00 Chlorhexidine Gluconate (Chlorhexidine 2% Cloth) 3 pack DAILY@04 TOPICAL Last administered on 12/13/16 04:00; Start 12/09/16 at 04:00; Stop 12/13/16 at 04:01 ; Status DC Chlorhexidine Gluconate (Chlorhexidine 2% Cloth) 3 pack UNSCH PRN TOPICAL HYGIENIC CARE; Start 12/09/16 at 23:45; Stop 12/14/16 at 23:44 Non-Formulary Medication 1 DROP TO RIGHT EYE Q2H... Q2H RIGHT EYE Last administered on 12/13/16 00:24; Start 12/09/16 at 08:00; Stop 12/13/16 at 00:43 ; Status DC Bisacodyl (Dulcolax Ec) 10 mg DAILY PRN PO CONSTIPATION Last administered on 18:13; Start 12/11/16 at 18:00 Acetaminophen (Tylenol) 650 mg Q4H PRN PO PAIN SCALE 1 TO 10 Last administered on 12/12/16 10:37; Start 12/11/16 at 18:00 Polyethylene Glycol (Miralax) 17 gm DAILY PRN PO IF DULCOLAX NOT EFFECTIVE Last administered on 12/12/16 09:26; Start 12/12/16 at 07:45 Sodium Biphosphate/ Sodium Phosphate (Fleets Enema (Adult)) 133 ml UNSCH PRN RECTAL IF NO BM WITH OTHER LAXATIVES.; Start 12/13/16 at 08:00 Non-Formulary Medication 1 ea Q1H RIGHT EYE Last administered on 12/13/16 21: 45; Start 12/13/16 at 21:00; Stop 12/13/16 at 22:19; Status DC Non-Formulary Medication 1 ea Q30M RIGHT EYE ; Start 12/13/16 at 22:30; Stop at 22:30; Status DC Non-Formulary Medication 1 ea Q1H RIGHT EYE Last administered on 12/14/16 07: 26; Start 12/14/16 at 07:00 Non-Formulary Medication 1 DROP IN THE RIGHT EYE Q3H Q3H RIGHT EYE Last administered on 12/14/16 07:27; Start 12/14/16 at 01:00; Stop 12/14/16 at 22:01 Non-Formulary Medication 1 DROP IN THE RIGHT EYE Q4H Q4H RIGHT EYE ; Start 12/15 at 02:00 Non-Formulary Medication 1 ea Q30M RIGHT EYE Last administered on 12/14/16 06: 03; Start 12/13/16 at 22:30; Stop 12/14/16 at 06:01; Status DC Non-Formulary Medication AMPHOTERICIN B OPHTHALMIC EYE DROPS 0.5%... Q4H RIGHT EYE Last administered on 12/14/16 06:03; Start 12/14/16 at 02:00 A/P Assessment and Plan A/P Endophthalmitis s/p Tap and injection of right eye with vancomycin, gentamicin and triamcinolone by Dr. Watson. right cornea culture with mold, staph epidermidis and staph auricularis Continue amphotericin, vancomycin- added Voriconazole per ophthalmology. Pain management with Lortab ophthalmology following. constipation; laxatives as needed. DVT prophylaxis with SCDs Discharge Planning dc planning when cleared by ophthalmology. awaiting ophthalmology f/u and recommendations. Keli Velásquez MD Dec 14, 2016 07:54
[2016-12-14] MEDS: ATROPINE SULFATE 1% OPHT SOLN 5 ML BTL RIGHT EYE SCH ×3 (09:01→18:24)
[2016-12-14] MEDS: SODIUM CHLORIDE 0.9% FLUSH 10 ML FLUSH IV FLUSH SCH ×2 (09:04→19:57)
[2016-12-14] MEDS: POLYETHYLENE GLYCOL 17 GM PKG PO PRN (14:28)
[2016-12-14] MEDS: BISACODYL EC 5 MG TABEC PO PRN (14:28)
[2016-12-15] VITALS (8 sets, daily range): BP systolic 94–116; BP diastolic 55–76; PULSE 64–77; RESP 16–20; TEMP 98–98.5; O2SAT 96–99
[2016-12-15] MEDS: [UNRECOGNIZED DRUG - REMARK] RIGHT EYE SCH ×25 (00:03→23:08)
[2016-12-15] MEDS: [UNRECOGNIZED DRUG - OTHER] RIGHT EYE SCH ×6 (01:06→21:57)
[2016-12-15] MEDS: VANCOMYCIN RIGHT EYE SCH ×6 (01:06→21:57)
[2016-12-15] MEDS: AMPHOTERICIN B RIGHT EYE SCH ×6 (01:06→21:57)
[2016-12-15] MEDS: ACETAMINOPHEN 325 MG TAB PO PRN ×2 (08:30→21:01)
--- NOTE | 2016-12-15 08:55 | HHI.PR ---
Subjective Remarks in no distress. has mild headache . otherwise no new complaints. Objective Vitals Vital Signs Date Time Temp Pulse Resp B/P Pulse Ox O2 Delivery O2 Flow Rate FiO2 12/15/16 04:00 98.0 20 114/68 96 12/15/16 00:00 98.3 64 20 94/55 99 12/14/16 23:00 65 12/14/16 20:00 98.1 90 22 128/83 100 12/14/16 16:00 98.0 59 110/75 97 12/14/16 12:06 98.9 110/75 96 I/O 12/14/16 12/14/16 12/14/16 12/15/16 12/15/16 12/15/16 07:00 15:00 23:00 07:00 15:00 23:00 Intake Total 240 ml 600 ml 500 ml 300 ml Output Total 450 ml 300 ml 1100 ml 300 ml Balance -210 ml 300 ml -600 ml 0 ml Intake Oral 240 ml 600 ml 500 ml 300 ml IV Total 0 ml 0 ml Output Urine Total 450 ml 300 ml 1100 ml 300 ml # Bowel Movements 0 0 2 0 Objective Remarks GENERAL: This is a well-nourished, well-developed patient, in no apparent distress. HEENT; left eye is mildly swollen CARDIOVASCULAR: Regular rate and regular rhythm without murmurs, gallops, or rubs. RESPIRATORY: Clear to auscultation. Breath sounds equal bilaterally. No wheezes , rales, or rhonchi. GASTROINTESTINAL: Abdomen soft, non-tender, nondistended. Normal, active bowel sounds MUSCULOSKELETAL: Extremities without clubbing, cyanosis, or edema. NEURO: Alert & Oriented x4 to person, place, time, situation. Moves all ext x4 Procedures Tap and injection of right eye with vancomycin, gentamicin and triamcinolone Medications and IVs Current Medications Sodium Chloride (NS Flush) 2 ml UNSCH PRN IV FLUSH FLUSH AFTER USING IV ACCESS ; Start 12/05/16 at 20:15 Sodium Chloride (NS Flush) 2 ml BID IV FLUSH Last administered on 12/14/16t 19: 57; Start 12/05/16 at 21:00 Acetaminophen (Tylenol) 650 mg Q4H PRN PO TEMP > 100.4; Start 12/05/16 at 20:15 Ondansetron HCl (Zofran Inj) 4 mg Q6H PRN IVP NAUSEA OR VOMITING; Start at 20:15 Naloxone HCl (Narcan Inj) 0.4 mg UNSCH PRN IV SEE LABEL COMMENTS; Start at 20:15 Senna/Docusate Sodium (Kelli-Colace) 1 tab BID PO Last administered on 20:42; Start 12/05/16 at 21:00; Stop 12/11/16 at 17:48; Status DC Magnesium Hydroxide (Milk Of Magnesia Liq) 30 ml Q12H PRN PO MILD - MODERATE CONSTIPATION Last administered on 12/11/16 13:12; Start 12/05/16 at 20:15; Stop 12/11/16 at 17:48; Status DC Tobramycin Sulfate (Tobrex 0.3% Opth Soln) 1 drop Q30M RIGHT EYE ; Start at 22:00; Status Cancel Non-Formulary Medication 1 drop Every 30 minutes RIGHT EYE ; Start 12/05/16 at 20:45; Stop 12/05/16 at 21:30; Status DC Non-Formulary Medication 0.1 ML INTRA-VITREAL INJECTION UNSCH RIGHT EYE ; Start 12/05/16 at 21:00; Stop 12/06/16 at 03:00; Status DC Non-Formulary Medication 0.1 ML INTRA-VITREAL INJECTION UNSCH RIGHT EYE ; Start 12/05/16 at 21:00; Stop 12/06/16 at 03:00; Status DC Triamcinolone Acetonide (Triesence Opth Inj) 4 mg UNSCH RIGHT EYE ; Start at 21:00 Non-Formulary Medication 1 DROP IN THE RIGHT ... Q1H RIGHT EYE Last administered on 12/06/16 08:17; Start 12/05/16 at 21:15; Stop 12/06/16 at 08:16 ; Status DC Non-Formulary Medication 1 DROP TO RIGHT EYE UNSCHEDU... Q1H RIGHT EYE Last administered on 12/09/16 06:09; Start 12/05/16 at 21:15; Stop 12/09/16 at 07:30 ; Status DC Atropine Sulfate (Isopto Atropine 1% Opth Soln) 1 drop TID RIGHT EYE Last administered on 12/14/16 18:24; Start 12/05/16 at 22:00 Prednisolone Acetate (Pred Forte 1% Opth Susp) 1 drop Q1H RIGHT EYE Last administered on 12/08/16 22:23; Start 12/05/16 at 22:00; Status Hold Proparacaine HCl (Alcaine 0.5% Opht Soln) 1 drop UNSCH PRN RIGHT EYE PROCEDURE ; Start 12/05/16 at 22:00; Stop 12/06/16 at 21:59; Status DC Lidocaine (Ak[place] Pf 3.5% Opth Gel) 1 drop UNSCH PRN RIGHT EYE PROCEDURE; Start 12/05/16 at 22:00; Stop 12/06/16 at 21:59; Status Cancel Povidone Iodine (Betadine 10% Oint) 1 pkt UNSCH PRN .XX PROCEDURE; Start at 22:15; Stop 12/06/16 at 22:14; Status DC Cocaine HCl (Cocaine 4% Top Soln) 4 ml ONCE ONCE TOPICAL Last administered on 12/05/16 22:45; Start 12/05/16 at 22:45; Stop 12/05/16 at 22:46; Status DC Acetaminophen/ Hydrocodone Bitart ([place] 10-325 Mg) 1 tab Q3H PRN PO Last administered on 12/06/16 03:42; Start 12/06/16 at 00:15; Stop 12/06/16 at 09:17 ; Status DC Acetaminophen/ Hydrocodone Bitart ([place] 10-325 Mg) 1 tab Q4H PRN PO pain Last administered on 12/10/16 23:49; Start 12/06/16 at 12:00; Stop 12/11/16 at 17:48 ; Status DC Non-Formulary Medication 1 DROP IN THE RIGHT EYE Q1H Q1H RIGHT EYE Last administered on 12/08/16 22:22; Start 12/07/16 at 22:00; Stop 12/08/16 at 22:33 ; Status DC Non-Formulary Medication AMPHOTERICIN B OPHTHALMIC EYE DROPS 0.5%... Q30M RIGHT EYE Last administered on 12/09/16 20:19; Start 12/08/16 at 20:30; Stop at 20:01; Status DC Non-Formulary Medication AMPHOTERICIN B OPHTHALMIC EYE DROPS 0.5%... Q1H RIGHT EYE Last administered on 12/13/16 21:45; Start 12/09/16 at 20:30; Stop at 22:24; Status DC Non-Formulary Medication 1 DROP IN THE RIGHT EYE Q2H Q2H RIGHT EYE Last administered on 12/13/16 21:45; Start 12/08/16 at 23:00; Stop 12/13/16 at 22:21 ; Status DC Miscellaneous Information Patient in critical care unit? Ass... Q361D .XX ; Start 12/09/16 at 00:00 Chlorhexidine Gluconate (Chlorhexidine 2% Cloth) 3 pack DAILY@04 TOPICAL Last administered on 12/13/16 04:00; Start 12/09/16 at 04:00; Stop 12/13/16 at 04:01 ; Status DC Chlorhexidine Gluconate (Chlorhexidine 2% Cloth) 3 pack UNSCH PRN TOPICAL HYGIENIC CARE; Start 12/09/16 at 23:45; Stop 12/14/16 at 23:44; Status DC Non-Formulary Medication 1 DROP TO RIGHT EYE Q2H... Q2H RIGHT EYE Last administered on 12/13/16 00:24; Start 12/09/16 at 08:00; Stop 12/13/16 at 00:43 ; Status DC Bisacodyl (Dulcolax Ec) 10 mg DAILY PRN PO CONSTIPATION Last administered on 14:28; Start 12/11/16 at 18:00 Acetaminophen (Tylenol) 650 mg Q4H PRN PO PAIN SCALE 1 TO 10 Last administered on 12/15/16 08:30; Start 12/11/16 at 18:00 Polyethylene Glycol (Miralax) 17 gm DAILY PRN PO IF DULCOLAX NOT EFFECTIVE Last administered on 12/14/16 14:28; Start 12/12/16 at 07:45 Sodium Biphosphate/ Sodium Phosphate (Fleets Enema (Adult)) 133 ml UNSCH PRN RECTAL IF NO BM WITH OTHER LAXATIVES.; Start 12/13/16 at 08:00 Non-Formulary Medication 1 ea Q1H RIGHT EYE Last administered on 12/13/16 21: 45; Start 12/13/16 at 21:00; Stop 12/13/16 at 22:19; Status DC Non-Formulary Medication 1 ea Q30M RIGHT EYE ; Start 12/13/16 at 22:30; Stop at 22:30; Status DC Non-Formulary Medication 1 ea Q1H RIGHT EYE Last administered on 12/15/16 08: 21; Start 12/14/16 at 07:00 Non-Formulary Medication 1 DROP IN THE RIGHT EYE Q3H Q3H RIGHT EYE Last administered on 12/14/16 22:00; Start 12/14/16 at 01:00; Stop 12/14/16 at 22:01 ; Status DC Non-Formulary Medication 1 DROP IN THE RIGHT EYE Q4H Q4H RIGHT EYE Last administered on 12/15/16 06:01; Start 12/15/16 at 02:00 Non-Formulary Medication 1 ea Q30M RIGHT EYE Last administered on 12/14/16 06: 03; Start 12/13/16 at 22:30; Stop 12/14/16 at 06:01; Status DC Non-Formulary Medication AMPHOTERICIN B OPHTHALMIC EYE DROPS 0.5%... Q4H RIGHT EYE Last administered on 12/15/16 06:02; Start 12/14/16 at 02:00 A/P Assessment and Plan A/P Endophthalmitis s/p Tap and injection of right eye with vancomycin, gentamicin and triamcinolone by Dr. Watson. right cornea culture with mold, staph epidermidis and staph auricularis Continue amphotericin, vancomycin- added Voriconazole per ophthalmology. Pain management with Lortab ophthalmology following. constipation; laxatives as needed. DVT prophylaxis with SCDs Discharge Planning dc planning when cleared by ophthalmology. awaiting ophthalmology f/u and recommendations. left a message for ; [phone]. Keli Velásquez MD Dec 15, 2016 08:55
[2016-12-15] MEDS: ATROPINE SULFATE 1% OPHT SOLN 5 ML BTL RIGHT EYE SCH ×3 (09:22→18:36)
[2016-12-15] MEDS: SODIUM CHLORIDE 0.9% FLUSH 10 ML FLUSH IV FLUSH SCH ×2 (09:22→20:40)
[2016-12-15] MEDS: PANTOPRAZOLE SOD 20 MG DELAYED RELEASE TAB PO SCH (10:09)
--- NOTE | 2016-12-15 17:44 | HHI.PR ---
Addendum To [facility] Progress Not Reason for addendum: Additonal documentation (d/w ; patient needs to be transferred to another facility for corneal transplant. case management consulted to assist.) Keli Velásquez MD Dec 15, 2016 17:44
[2016-12-15] MEDS ORDERED: BALANCED SALT SOLN OPHT IRRIG 15 ML BTL ONE (18:59)
[2016-12-15] MEDS ORDERED: ceFAZolin INJ 1,000 MG VIAL ONE (19:00)
[2016-12-15] MEDS ORDERED: NEOMYCIN/POLYMYXIN/DEXAMETHASONE OPTH OINT 3.5 GM TUBE ONE (19:00)
[2016-12-15] MEDS ORDERED: LIDOCAINE 1%/EPINEPHrine 1:100,000 SOLN 20 ML VIAL ONE (19:00)
[2016-12-15] MEDS ORDERED: STERILE WATER FOR INJ 20 ML VIAL ONE (19:01)
[2016-12-15] MEDS ORDERED: PROPARACAINE HCL 0.5% OPHT SOLN 15 ML BTL RIGHT EYE ONE (19:15)
[2016-12-15] MEDS ORDERED: LIDOCAINE 1%/EPINEPHrine 1:100,000 SOLN 20 ML VIAL INFIL ONE (19:30)
[2016-12-15] MEDS ORDERED: LIDOCAINE 3.5% RIGHT EYE ONE (19:30)
[2016-12-15] MEDS ORDERED: LIDOCAINE-PRILOCAIN 2.5% CREAM 5 GM TUBE ONE (19:44)
[2016-12-15] MEDS ORDERED: LIDOCAINE HCL 2% JELLY 5 ML SYRINGE ONE (19:44)
[2016-12-15] MEDS ORDERED: COCAINE HCL 4% SOLN 4 ML VIAL TOPICAL ONE (20:00)
[2016-12-16] VITALS (9 sets, daily range): BP systolic 87–105; BP diastolic 56–68; PULSE 57–72; RESP 18–20; TEMP 98.2–98.5; O2SAT 96–99
[2016-12-16] MEDS: [UNRECOGNIZED DRUG - REMARK] RIGHT EYE SCH ×24 (00:01→23:02)
[2016-12-16] MEDS: VANCOMYCIN RIGHT EYE SCH ×6 (02:00→22:04)
[2016-12-16] MEDS: [UNRECOGNIZED DRUG - OTHER] RIGHT EYE SCH ×6 (02:00→22:04)
[2016-12-16] MEDS: AMPHOTERICIN B RIGHT EYE SCH ×6 (02:01→22:04)
--- NOTE | 2016-12-16 07:56 | HHI.PR ---
Subjective Remarks in no acute distress. no new complaints. d/w the RN. Objective Vitals Vital Signs Date Time Temp Pulse Resp B/P Pulse Ox O2 Delivery O2 Flow Rate FiO2 12/16/16 04:00 98.2 66 20 87/56 12/16/16 00:00 98.2 67 20 87/56 97 12/15/16 23:00 75 12/15/16 20:00 98.3 64 20 94/55 99 12/15/16 16:00 98.5 64 16 116/76 97 12/15/16 15:00 71 12/15/16 12:00 98.3 72 16 116/55 97 12/15/16 09:30 16 12/15/16 08:00 98.3 73 16 100/62 98 12/15/16 08:00 77 I/O 12/15/16 12/15/16 12/15/16 12/16/16 12/16/16 12/16/16 07:00 15:00 23:00 07:00 15:00 23:00 Intake Total 300 ml 722 ml 400 ml 600 ml Output Total 300 ml 300 ml 400 ml Balance 0 ml 722 ml 100 ml 200 ml Intake Oral 300 ml 720 ml 400 ml 600 ml IV Total 0 ml 2 ml 0 ml 0 ml Output Urine Total 300 ml 300 ml 400 ml # Voids 2 # Bowel Movements 0 0 0 Objective Remarks GENERAL: This is a well-nourished, well-developed patient, in no apparent distress. HEENT; left eye is mildly swollen CARDIOVASCULAR: Regular rate and regular rhythm without murmurs, gallops, or rubs. RESPIRATORY: Clear to auscultation. Breath sounds equal bilaterally. No wheezes , rales, or rhonchi. GASTROINTESTINAL: Abdomen soft, non-tender, nondistended. Normal, active bowel sounds MUSCULOSKELETAL: Extremities without clubbing, cyanosis, or edema. NEURO: Alert & Oriented x4 to person, place, time, situation. Moves all ext x4 Procedures Tap and injection of right eye with vancomycin, gentamicin and triamcinolone removal of subconjunctival steriod right eye Medications and IVs Current Medications Sodium Chloride (NS Flush) 2 ml UNSCH PRN IV FLUSH FLUSH AFTER USING IV ACCESS ; Start 12/05/16 at 20:15 Sodium Chloride (NS Flush) 2 ml BID IV FLUSH Last administered on 12/15/16 20: 40; Start 12/05/16 at 21:00 Acetaminophen (Tylenol) 650 mg Q4H PRN PO TEMP > 100.4 Last administered on 21:01; Start 12/05/16 at 20:15 Ondansetron HCl (Zofran Inj) 4 mg Q6H PRN IVP NAUSEA OR VOMITING Last administered on 12/15/16 16:41; Start 12/05/16 at 20:15 Naloxone HCl (Narcan Inj) 0.4 mg UNSCH PRN IV SEE LABEL COMMENTS; Start at 20:15 Senna/Docusate Sodium (Kelli-Colace) 1 tab BID PO Last administered on 20:42; Start 12/05/16 at 21:00; Stop 12/11/16 at 17:48; Status DC Magnesium Hydroxide (Milk Of Magnesia Liq) 30 ml Q12H PRN PO MILD - MODERATE CONSTIPATION Last administered on 12/11/16 13:12; Start 12/05/16 at 20:15; Stop 12/11/16 at 17:48; Status DC Tobramycin Sulfate (Tobrex 0.3% Opth Soln) 1 drop Q30M RIGHT EYE ; Start at 22:00; Status Cancel Non-Formulary Medication 1 drop Every 30 minutes RIGHT EYE ; Start 12/05/16 at 20:45; Stop 12/05/16 at 21:30; Status DC Non-Formulary Medication 0.1 ML INTRA-VITREAL INJECTION UNSCH RIGHT EYE ; Start 12/05/16 at 21:00; Stop 12/06/16 at 03:00; Status DC Non-Formulary Medication 0.1 ML INTRA-VITREAL INJECTION UNSCH RIGHT EYE ; Start 12/05/16 at 21:00; Stop 12/06/16 at 03:00; Status DC Triamcinolone Acetonide (Triesence Opth Inj) 4 mg UNSCH RIGHT EYE ; Start at 21:00 Non-Formulary Medication 1 DROP IN THE RIGHT ... Q1H RIGHT EYE Last administered on 12/06/16 08:17; Start 12/05/16 at 21:15; Stop 12/06/16 at 08:16 ; Status DC Non-Formulary Medication 1 DROP TO RIGHT EYE UNSCHEDU... Q1H RIGHT EYE Last administered on 12/09/16 06:09; Start 12/05/16 at 21:15; Stop 12/09/16 at 07:30 ; Status DC Atropine Sulfate (Isopto Atropine 1% Opth Soln) 1 drop TID RIGHT EYE Last administered on 12/15/16 18:36; Start 12/05/16 at 22:00 Prednisolone Acetate (Pred Forte 1% Opth Susp) 1 drop Q1H RIGHT EYE Last administered on 12/08/16 22:23; Start 12/05/16 at 22:00; Status Hold Proparacaine HCl (Alcaine 0.5% Opht Soln) 1 drop UNSCH PRN RIGHT EYE PROCEDURE ; Start 12/05/16 at 22:00; Stop 12/06/16 at 21:59; Status DC Lidocaine ([place] Pf 3.5% Opth Gel) 1 drop UNSCH PRN RIGHT EYE PROCEDURE; Start 12/05/16 at 22:00; Stop 12/06/16 at 21:59; Status Cancel Povidone Iodine (Betadine 10% Oint) 1 pkt UNSCH PRN .XX PROCEDURE; Start at 22:15; Stop 12/06/16 at 22:14; Status DC Cocaine HCl (Cocaine 4% Top Soln) 4 ml ONCE ONCE TOPICAL Last administered on 12/05/16 22:45; Start 12/05/16 at 22:45; Stop 12/05/16 at 22:46; Status DC Acetaminophen/ Hydrocodone Bitart ([place] 10-325 Mg) 1 tab Q3H PRN PO Last administered on 12/06/16 03:42; Start 12/06/16 at 00:15; Stop 12/06/16 at 09:17 ; Status DC Acetaminophen/ Hydrocodone Bitart ([place] 10-325 Mg) 1 tab Q4H PRN PO pain Last administered on 12/10/16 23:49; Start 12/06/16 at 12:00; Stop 12/11/16 at 17:48 ; Status DC Non-Formulary Medication 1 DROP IN THE RIGHT EYE Q1H Q1H RIGHT EYE Last administered on 12/08/16 22:22; Start 12/07/16 at 22:00; Stop 12/08/16 at 22:33 ; Status DC Non-Formulary Medication AMPHOTERICIN B OPHTHALMIC EYE DROPS 0.5%... Q30M RIGHT EYE Last administered on 12/09/16 20:19; Start 12/08/16 at 20:30; Stop at 20:01; Status DC Non-Formulary Medication AMPHOTERICIN B OPHTHALMIC EYE DROPS 0.5%... Q1H RIGHT EYE Last administered on 12/13/16 21:45; Start 12/09/16 at 20:30; Stop at 22:24; Status DC Non-Formulary Medication 1 DROP IN THE RIGHT EYE Q2H Q2H RIGHT EYE Last administered on 12/13/16 21:45; Start 12/08/16 at 23:00; Stop 12/13/16 at 22:21 ; Status DC Miscellaneous Information Patient in critical care unit? Ass... Q361D .XX ; Start 12/09/16 at 00:00 Chlorhexidine Gluconate (Chlorhexidine 2% Cloth) 3 pack DAILY@04 TOPICAL Last administered on 12/13/16 04:00; Start 12/09/16 at 04:00; Stop 12/13/16 at 04:01 ; Status DC Chlorhexidine Gluconate (Chlorhexidine 2% Cloth) 3 pack UNSCH PRN TOPICAL HYGIENIC CARE; Start 12/09/16 at 23:45; Stop 12/14/16 at 23:44; Status DC Non-Formulary Medication 1 DROP TO RIGHT EYE Q2H... Q2H RIGHT EYE Last administered on 12/13/16 00:24; Start 12/09/16 at 08:00; Stop 12/13/16 at 00:43 ; Status DC Bisacodyl (Dulcolax Ec) 10 mg DAILY PRN PO CONSTIPATION Last administered on 14:28; Start 12/11/16 at 18:00 Acetaminophen (Tylenol) 650 mg Q4H PRN PO PAIN SCALE 1 TO 10 Last administered on 12/15/16 08:30; Start 12/11/16 at 18:00 Polyethylene Glycol (Miralax) 17 gm DAILY PRN PO IF DULCOLAX NOT EFFECTIVE Last administered on 12/14/16 14:28; Start 12/12/16 at 07:45 Sodium Biphosphate/ Sodium Phosphate (Fleets Enema (Adult)) 133 ml UNSCH PRN RECTAL IF NO BM WITH OTHER LAXATIVES.; Start 12/13/16 at 08:00 Non-Formulary Medication 1 ea Q1H RIGHT EYE Last administered on 12/13/16 21: 45; Start 12/13/16 at 21:00; Stop 12/13/16 at 22:19; Status DC Non-Formulary Medication 1 ea Q30M RIGHT EYE ; Start 12/13/16 at 22:30; Stop at 22:30; Status DC Non-Formulary Medication 1 ea Q1H RIGHT EYE Last administered on 12/16/16 06:45 ; Start 12/14/16 at 07:00 Non-Formulary Medication 1 DROP IN THE RIGHT EYE Q3H Q3H RIGHT EYE Last administered on 12/14/16 22:00; Start 12/14/16 at 01:00; Stop 12/14/16 at 22:01 ; Status DC Non-Formulary Medication 1 DROP IN THE RIGHT EYE Q4H Q4H RIGHT EYE Last administered on 12/16/16 06:11; Start 12/15/16 at 02:00 Non-Formulary Medication 1 ea Q30M RIGHT EYE Last administered on 12/14/16 06: 03; Start 12/13/16 at 22:30; Stop 12/14/16 at 06:01; Status DC Non-Formulary Medication AMPHOTERICIN B OPHTHALMIC EYE DROPS 0.5%... Q4H RIGHT EYE Last administered on 12/16/16 06:11; Start 12/14/16 at 02:00 Pantoprazole Sodium (Protonix) 20 mg DAILY PO Last administered on 12/15/16 10 :09; Start 12/15/16 at 10:00 Balanced Salt Solution (Bss Opth Soln) 15 applic STK-MED ONCE .ROUTE Last administered on 12/15/16 19:56; Start 12/15/16 at 18:59; Stop 12/15/16 at 19:00 ; Status DC Neomycin/ Polymyxin/ Dexamethasone (Maxitrol Opth Oint) 3.5 applic STK-MED ONCE .ROUTE Last administered on 12/15/16 19:56; Start 12/15/16 at 19:00; Stop at 19:01; Status DC Cefazolin Sodium (Ancef Inj) 1,000 mg STK-MED ONCE .ROUTE ; Start 12/15/16 at 19 :00; Stop 12/15/16 at 19:01; Status DC Lidocaine/ Epinephrine (Xylocaine-Epi 1%-1:100,000 Inj) 20 ml STK-MED ONCE .ROUTE Last administered on 12/15/16t 19:56; Start 12/15/16 at 19:00; Stop at 19:01; Status DC Sterile Water (Sterile Water For Inj) 20 ml STK-MED ONCE .ROUTE ; Start at 19:01; Stop 12/15/16 at 19:02; Status DC Proparacaine HCl (Alcaine 0.5% Opht Soln) 1 drop ONCE ONCE RIGHT EYE ; Start at 19:15; Stop 12/15/16 at 19:16; Status DC Lidocaine/ Epinephrine (Xylocaine-Epi 1%-1:100,000 Inj) 20 ml ONCE ONCE INFIL ; Start 12/15/16 at 19:30; Stop 12/15/16 at 19:31; Status DC Lidocaine ([place] Pf 3.5% Opth Gel) 1 drop ONCE ONCE RIGHT EYE ; Start 12/15/16 at 19:30; Stop 12/15/16 at 19:31; Status Cancel Lidocaine HCl (Xylocaine 2% Jelly) 5 ml STK-MED ONCE .ROUTE ; Start 12/15/16 at 19:44; Stop 12/15/16 at 19:45; Status DC Lidocaine/ Prilocaine (Emla Cream) 5 applic STK-MED ONCE .ROUTE ; Start at 19:44; Stop 12/15/16 at 19:45; Status DC Cocaine HCl (Cocaine 4% Top Soln) 4 ml ONCE ONCE TOPICAL ; Start 12/15/16 at 20 :00; Stop 12/15/16 at 20:01; Status DC A/P Assessment and Plan A/P Endophthalmitis s/p Tap and injection of right eye with vancomycin, gentamicin and triamcinolone / removal of subconjunctival steriod right eye by Dr. Watson. right cornea culture with mold ( fusarium species) , staph epidermidis and staph auricularis Continue amphotericin, vancomycin, Voriconazole per ophthalmology. Pain management with Lortab ophthalmology following. constipation; laxatives as needed. DVT prophylaxis with SCDs Discharge Planning previously d/w ; plan for transfer the patient to another facility for corneal transplant- case management consulted. Keli Velásquez MD Dec 16, 2016 07:56
[2016-12-16] MEDS: PANTOPRAZOLE SOD 20 MG DELAYED RELEASE TAB PO SCH (08:00)
[2016-12-16] MEDS: SODIUM CHLORIDE 0.9% FLUSH 10 ML FLUSH IV FLUSH SCH ×2 (08:00→20:03)
[2016-12-16] MEDS: ATROPINE SULFATE 1% OPHT SOLN 5 ML BTL RIGHT EYE SCH ×3 (09:06→18:04)
[2016-12-17] VITALS (9 sets, daily range): BP systolic 60–111; BP diastolic 53–73; PULSE 57–72; RESP 18–29; TEMP 97.9–98.5; O2SAT 96–97
[2016-12-17] MEDS: [UNRECOGNIZED DRUG - REMARK] RIGHT EYE SCH ×24 (00:11→23:38)
[2016-12-17] MEDS: VANCOMYCIN RIGHT EYE SCH ×6 (02:04→22:07)
[2016-12-17] MEDS: [UNRECOGNIZED DRUG - OTHER] RIGHT EYE SCH ×6 (02:04→22:07)
[2016-12-17] MEDS: AMPHOTERICIN B RIGHT EYE SCH ×6 (02:05→22:07)
[2016-12-17 05:46] LABS: AUTOMATED NEUTROPHIL # 5.9 TH/MM3 (1.8-7.7); BASOPHIL # 0.1 TH/MM3 (0-0.2); BASOPHIL % 0.8 % (0.0-2.0); EOSINOPHIL # 0.5 TH/MM3 (0-0.4); EOSINOPHIL % 4.8 % (0.0-4.0); HEMATOCRIT 43.6 % (39.0-51.0); HEMO FLAGS DIFF FINAL; LYMPH % 29.9 % (9.0-44.0); LYMPHOCYTE # 3.2 TH/MM3 (1.0-4.8); MEAN CELL VOLUME 87.8 FL (80.0-100.0); MEAN CORPUSCULAR HEMOGLOBIN 29.7 PG (27.0-34.0); MEAN CORPUSCULAR HGB CONC 33.8 % (32.0-36.0); MONO % 8.6 % (0.0-8.0); NEUT % 55.9 % (16.0-70.0); PLATELET COUNT 220 TH/MM3 (150-450); RED BLOOD COUNT 4.97 MIL/MM3 (4.50-5.90); RED CELL DISTRIBUTION WIDTH 12.4 % (11.6-17.2); WHITE BLOOD COUNT 10.5 TH/MM3 (4.0-11.0)
[2016-12-17 06:14] LABS: BICARBONATE 28.7 MEQ/L (21.0-32.0); POTASSIUM 3.9 MEQ/L (3.5-5.1)
[2016-12-17] MEDS: PANTOPRAZOLE SOD 20 MG DELAYED RELEASE TAB PO SCH (07:54)
[2016-12-17] MEDS: SODIUM CHLORIDE 0.9% FLUSH 10 ML FLUSH IV FLUSH SCH ×2 (07:54→21:00)
--- NOTE | 2016-12-17 07:55 | HHI.PR ---
Subjective Remarks resting comfortably with no distress. no new complaints. Objective Vitals Vital Signs Date Time Temp Pulse Resp B/P Pulse Ox O2 Delivery O2 Flow Rate FiO2 12/17/16 04:00 98.5 72 19 100/66 12/17/16 00:00 98.2 64 29 100/65 97 12/16/16 23:00 57 12/16/16 20:00 98.3 62 20 105/68 12/16/16 16:00 98.4 57 19 97/65 97 12/16/16 15:00 58 12/16/16 12:00 98.5 62 19 92/64 99 12/16/16 08:00 98.4 72 18 96 I/O 12/16/16 12/16/16 12/16/16 12/17/16 12/17/16 12/17/16 07:00 15:00 23:00 07:00 15:00 23:00 Intake Total 600 ml 400 ml 240 ml 200 ml Output Total 400 ml 900 ml 300 ml 600 ml Balance 200 ml -500 ml -60 ml -400 ml Intake Oral 600 ml 400 ml 240 ml 200 ml IV Total 0 ml 0 ml Output Urine Total 400 ml 900 ml 300 ml 600 ml # Voids 3 # Bowel Movements 0 0 0 0 Result Diagram: 12/17/1651212/17/16512 Objective Remarks GENERAL: This is a well-nourished, well-developed patient, in no apparent distress. HEENT; left eye is mildly swollen CARDIOVASCULAR: Regular rate and regular rhythm without murmurs, gallops, or rubs. RESPIRATORY: Clear to auscultation. Breath sounds equal bilaterally. No wheezes , rales, or rhonchi. GASTROINTESTINAL: Abdomen soft, non-tender, nondistended. Normal, active bowel sounds MUSCULOSKELETAL: Extremities without clubbing, cyanosis, or edema. NEURO: Alert & Oriented x4 to person, place, time, situation. Moves all ext x4 Procedures Tap and injection of right eye with vancomycin, gentamicin and triamcinolone removal of subconjunctival steriod right eye Medications and IVs Current Medications Sodium Chloride (NS Flush) 2 ml UNSCH PRN IV FLUSH FLUSH AFTER USING IV ACCESS ; Start 12/05/16 at 20:15 Sodium Chloride (NS Flush) 2 ml BID IV FLUSH Last administered on 7/1/17at 20: 03; Start 12/05/16 at 21:00 Acetaminophen (Tylenol) 650 mg Q4H PRN PO TEMP > 100.4 Last administered on 21:01; Start 12/05/16 at 20:15 Ondansetron HCl (Zofran Inj) 4 mg Q6H PRN IVP NAUSEA OR VOMITING Last administered on 12/15/16 16:41; Start 12/05/16 at 20:15 Naloxone HCl (Narcan Inj) 0.4 mg UNSCH PRN IV SEE LABEL COMMENTS; Start at 20:15 Senna/Docusate Sodium (Kelli-Colace) 1 tab BID PO Last administered on 20:42; Start 12/05/16 at 21:00; Stop 12/11/16 at 17:48; Status DC Magnesium Hydroxide (Milk Of Magnesia Liq) 30 ml Q12H PRN PO MILD - MODERATE CONSTIPATION Last administered on 12/11/16 13:12; Start 12/05/16 at 20:15; Stop 12/11/16 at 17:48; Status DC Tobramycin Sulfate (Tobrex 0.3% Opth Soln) 1 drop Q30M RIGHT EYE ; Start at 22:00; Status Cancel Non-Formulary Medication 1 drop Every 30 minutes RIGHT EYE ; Start 12/05/16 at 20:45; Stop 12/05/16 at 21:30; Status DC Non-Formulary Medication 0.1 ML INTRA-VITREAL INJECTION UNSCH RIGHT EYE ; Start 12/05/16 at 21:00; Stop 12/06/16 at 03:00; Status DC Non-Formulary Medication 0.1 ML INTRA-VITREAL INJECTION UNSCH RIGHT EYE ; Start 12/05/16 at 21:00; Stop 12/06/16 at 03:00; Status DC Triamcinolone Acetonide (Triesence Opth Inj) 4 mg UNSCH RIGHT EYE ; Start at 21:00 Non-Formulary Medication 1 DROP IN THE RIGHT ... Q1H RIGHT EYE Last administered on 12/06/16 08:17; Start 12/05/16 at 21:15; Stop 12/06/16 at 08:16 ; Status DC Non-Formulary Medication 1 DROP TO RIGHT EYE UNSCHEDU... Q1H RIGHT EYE Last administered on 12/09/16 06:09; Start 12/05/16 at 21:15; Stop 12/09/16 at 07:30 ; Status DC Atropine Sulfate (Isopto Atropine 1% Opth Soln) 1 drop TID RIGHT EYE Last administered on 12/16/16 18:04; Start 12/05/16 at 22:00 Prednisolone Acetate (Pred Forte 1% Opth Susp) 1 drop Q1H RIGHT EYE Last administered on 12/08/16 22:23; Start 12/05/16 at 22:00; Status Hold Proparacaine HCl (Alcaine 0.5% Opht Soln) 1 drop UNSCH PRN RIGHT EYE PROCEDURE ; Start 12/05/16 at 22:00; Stop 12/06/16 at 21:59; Status DC Lidocaine ([place] Pf 3.5% Opth Gel) 1 drop UNSCH PRN RIGHT EYE PROCEDURE; Start 12/05/16 at 22:00; Stop 12/06/16 at 21:59; Status Cancel Povidone Iodine (Betadine 10% Oint) 1 pkt UNSCH PRN .XX PROCEDURE; Start at 22:15; Stop 12/06/16 at 22:14; Status DC Cocaine HCl (Cocaine 4% Top Soln) 4 ml ONCE ONCE TOPICAL Last administered on 12/05/16 22:45; Start 12/05/16 at 22:45; Stop 12/05/16 at 22:46; Status DC Acetaminophen/ Hydrocodone Bitart ([place] 10-325 Mg) 1 tab Q3H PRN PO Last administered on 12/06/16 03:42; Start 12/06/16 at 00:15; Stop 12/06/16 at 09:17 ; Status DC Acetaminophen/ Hydrocodone Bitart ([place]ena 10-325 Mg) 1 tab Q4H PRN PO pain Last administered on 12/10/16 23:49; Start 12/06/16 at 12:00; Stop 12/11/16 at 17:48 ; Status DC Non-Formulary Medication 1 DROP IN THE RIGHT EYE Q1H Q1H RIGHT EYE Last administered on 12/08/16 22:22; Start 12/07/16 at 22:00; Stop 12/08/16 at 22:33 ; Status DC Non-Formulary Medication AMPHOTERICIN B OPHTHALMIC EYE DROPS 0.5%... Q30M RIGHT EYE Last administered on 12/09/16 20:19; Start 12/08/16 at 20:30; Stop at 20:01; Status DC Non-Formulary Medication AMPHOTERICIN B OPHTHALMIC EYE DROPS 0.5%... Q1H RIGHT EYE Last administered on 12/13/16 21:45; Start 12/09/16 at 20:30; Stop at 22:24; Status DC Non-Formulary Medication 1 DROP IN THE RIGHT EYE Q2H Q2H RIGHT EYE Last administered on 12/13/16 21:45; Start 12/08/16 at 23:00; Stop 12/13/16 at 22:21 ; Status DC Miscellaneous Information Patient in critical care unit? Ass... Q361D .XX ; Start 12/09/16 at 00:00 Chlorhexidine Gluconate (Chlorhexidine 2% Cloth) 3 pack DAILY@04 TOPICAL Last administered on 12/13/16 04:00; Start 12/09/16 at 04:00; Stop 12/13/16 at 04:01 ; Status DC Chlorhexidine Gluconate (Chlorhexidine 2% Cloth) 3 pack UNSCH PRN TOPICAL HYGIENIC CARE; Start 12/09/16 at 23:45; Stop 12/14/16 at 23:44; Status DC Non-Formulary Medication 1 DROP TO RIGHT EYE Q2H... Q2H RIGHT EYE Last administered on 12/13/16 00:24; Start 12/09/16 at 08:00; Stop 12/13/16 at 00:43 ; Status DC Bisacodyl (Dulcolax Ec) 10 mg DAILY PRN PO CONSTIPATION Last administered on 14:28; Start 12/11/16 at 18:00 Acetaminophen (Tylenol) 650 mg Q4H PRN PO PAIN SCALE 1 TO 10 Last administered on 12/15/16 08:30; Start 12/11/16 at 18:00 Polyethylene Glycol (Miralax) 17 gm DAILY PRN PO IF DULCOLAX NOT EFFECTIVE Last administered on 12/14/16 14:28; Start 12/12/16 at 07:45 Sodium Biphosphate/ Sodium Phosphate (Fleets Enema (Adult)) 133 ml UNSCH PRN RECTAL IF NO BM WITH OTHER LAXATIVES.; Start 12/13/16 at 08:00 Non-Formulary Medication 1 ea Q1H RIGHT EYE Last administered on 12/13/16 21: 45; Start 12/13/16 at 21:00; Stop 12/13/16 at 22:19; Status DC Non-Formulary Medication 1 ea Q30M RIGHT EYE ; Start 12/13/16 at 22:30; Stop at 22:30; Status DC Non-Formulary Medication 1 ea Q1H RIGHT EYE Last administered on 12/17/16 06:53 ; Start 12/14/16 at 07:00 Non-Formulary Medication 1 DROP IN THE RIGHT EYE Q3H Q3H RIGHT EYE Last administered on 12/14/16 22:00; Start 12/14/16 at 01:00; Stop 12/14/16 at 22:01 ; Status DC Non-Formulary Medication 1 DROP IN THE RIGHT EYE Q4H Q4H RIGHT EYE Last administered on 12/17/16 06:15; Start 12/15/16 at 02:00 Non-Formulary Medication 1 ea Q30M RIGHT EYE Last administered on 12/14/16 06: 03; Start 12/13/16 at 22:30; Stop 12/14/16 at 06:01; Status DC Non-Formulary Medication AMPHOTERICIN B OPHTHALMIC EYE DROPS 0.5%... Q4H RIGHT EYE Last administered on 12/17/16 06:15; Start 12/14/16 at 02:00 Pantoprazole Sodium (Protonix) 20 mg DAILY PO Last administered on 12/16/16 08: 00; Start 12/15/16 at 10:00 Balanced Salt Solution (Bss Opth Soln) 15 applic STK-MED ONCE .ROUTE Last administered on 12/15/16 19:56; Start 12/15/16 at 18:59; Stop 12/15/16 at 19:00 ; Status DC Neomycin/ Polymyxin/ Dexamethasone (Maxitrol Opth Oint) 3.5 applic STK-MED ONCE .ROUTE Last administered on 12/15/16 19:56; Start 12/15/16 at 19:00; Stop at 19:01; Status DC Cefazolin Sodium (Ancef Inj) 1,000 mg STK-MED ONCE .ROUTE ; Start 12/15/16 at 19 :00; Stop 12/15/16 at 19:01; Status DC Lidocaine/ Epinephrine (Xylocaine-Epi 1%-1:100,000 Inj) 20 ml STK-MED ONCE .ROUTE Last administered on 12/15/16t 19:56; Start 12/15/16 at 19:00; Stop at 19:01; Status DC Sterile Water (Sterile Water For Inj) 20 ml STK-MED ONCE .ROUTE ; Start at 19:01; Stop 12/15/16 at 19:02; Status DC Proparacaine HCl (Alcaine 0.5% Opht Soln) 1 drop ONCE ONCE RIGHT EYE ; Start at 19:15; Stop 12/15/16 at 19:16; Status DC Lidocaine/ Epinephrine (Xylocaine-Epi 1%-1:100,000 Inj) 20 ml ONCE ONCE INFIL ; Start 12/15/16 at 19:30; Stop 12/15/16 at 19:31; Status DC Lidocaine ([place] Pf 3.5% Opth Gel) 1 drop ONCE ONCE RIGHT EYE ; Start 12/15/16 at 19:30; Stop 12/15/16 at 19:31; Status Cancel Lidocaine HCl (Xylocaine 2% Jelly) 5 ml STK-MED ONCE .ROUTE ; Start 12/15/16 at 19:44; Stop 12/15/16 at 19:45; Status DC Lidocaine/ Prilocaine (Emla Cream) 5 applic STK-MED ONCE .ROUTE ; Start at 19:44; Stop 12/15/16 at 19:45; Status DC Cocaine HCl (Cocaine 4% Top Soln) 4 ml ONCE ONCE TOPICAL ; Start 12/15/16 at 20 :00; Stop 12/15/16 at 20:01; Status DC A/P Assessment and Plan A/P Endophthalmitis s/p Tap and injection of right eye with vancomycin, gentamicin and triamcinolone / removal of subconjunctival steriod right eye by Dr. Watson. right cornea culture with mold ( fusarium species) , staph epidermidis and staph auricularis Continue amphotericin, vancomycin, Voriconazole per ophthalmology. Pain management with Lortab ophthalmology following; previously d/w and plan for transfer to another facility for corneal transplant. constipation-resolved- laxatives as needed. DVT prophylaxis with SCDs Discharge Planning previously d/w ; plan for transfer the patient to another facility for corneal transplant- case management consulted. Keli Velásquez MD Dec 17, 2016 07:55
[2016-12-17] MEDS: ATROPINE SULFATE 1% OPHT SOLN 5 ML BTL RIGHT EYE SCH ×3 (09:24→18:00)
[2016-12-18] VITALS (11 sets, daily range): BP systolic 98–118; BP diastolic 63–74; PULSE 57–70; RESP 16–21; TEMP 97.9–98.3; O2SAT 96–98
[2016-12-18] MEDS: [UNRECOGNIZED DRUG - REMARK] RIGHT EYE SCH ×25 (01:03→23:58)
[2016-12-18] MEDS: VANCOMYCIN RIGHT EYE SCH ×6 (02:12→22:14)
[2016-12-18] MEDS: [UNRECOGNIZED DRUG - OTHER] RIGHT EYE SCH ×6 (02:12→22:14)
[2016-12-18] MEDS: AMPHOTERICIN B RIGHT EYE SCH ×6 (02:12→22:14)
--- NOTE | 2016-12-18 08:07 | HHI.PR ---
Subjective Remarks resting comfortably with no distress. has mild headache. otherwise no other new complaints. Objective Vitals Vital Signs Date Time Temp Pulse Resp B/P Pulse Ox O2 Delivery O2 Flow Rate FiO2 12/18/16 07:00 63 12/18/16 04:00 98.2 64 18 98/63 97 12/18/16 00:00 97.9 59 17 99/70 12/17/16 23:00 58 12/17/16 20:00 98.4 63 21 96/66 12/17/16 16:00 98.2 63 29 108/73 12/17/16 15:00 57 12/17/16 12:00 98.1 60 20 60/53 96 I/O 12/17/16 12/17/16 12/17/16 12/18/16 12/18/16 12/18/16 07:00 15:00 23:00 07:00 15:00 23:00 Intake Total 200 ml 300 ml 240 ml 210 ml Output Total 600 ml 1350 ml 350 ml 500 ml Balance -400 ml -1050 ml -110 ml -290 ml Intake Oral 200 ml 300 ml 240 ml 200 ml IV Total 0 ml 10 ml Output Urine Total 600 ml 1350 ml 350 ml 500 ml # Voids 4 # Bowel Movements 0 0 Result Diagram: 12/17/16 0512/17/16512 Objective Remarks GENERAL: This is a well-nourished, well-developed patient, in no apparent distress. HEENT; left eye is mildly swollen CARDIOVASCULAR: Regular rate and regular rhythm without murmurs, gallops, or rubs. RESPIRATORY: Clear to auscultation. Breath sounds equal bilaterally. No wheezes , rales, or rhonchi. GASTROINTESTINAL: Abdomen soft, non-tender, nondistended. Normal, active bowel sounds MUSCULOSKELETAL: Extremities without clubbing, cyanosis, or edema. NEURO: Alert & Oriented x4 to person, place, time, situation. Moves all ext x4 Procedures Tap and injection of right eye with vancomycin, gentamicin and triamcinolone removal of subconjunctival steriod right eye Medications and IVs Current Medications Sodium Chloride (NS Flush) 2 ml UNSCH PRN IV FLUSH FLUSH AFTER USING IV ACCESS ; Start 12/05/16 at 20:15 Sodium Chloride (NS Flush) 2 ml BID IV FLUSH Last administered on 12/17/16 21: 00; Start 12/05/16 at 21:00 Acetaminophen (Tylenol) 650 mg Q4H PRN PO TEMP > 100.4 Last administered on 21:01; Start 12/05/16 at 20:15 Ondansetron HCl (Zofran Inj) 4 mg Q6H PRN IVP NAUSEA OR VOMITING Last administered on 12/15/16 16:41; Start 12/05/16 at 20:15 Naloxone HCl (Narcan Inj) 0.4 mg UNSCH PRN IV SEE LABEL COMMENTS; Start at 20:15 Senna/Docusate Sodium (Kelli-Colace) 1 tab BID PO Last administered on 20:42; Start 12/05/16 at 21:00; Stop 12/11/16 at 17:48; Status DC Magnesium Hydroxide (Milk Of Magnesia Liq) 30 ml Q12H PRN PO MILD - MODERATE CONSTIPATION Last administered on 12/11/16 13:12; Start 12/05/16 at 20:15; Stop 12/11/16 at 17:48; Status DC Tobramycin Sulfate (Tobrex 0.3% Opth Soln) 1 drop Q30M RIGHT EYE ; Start at 22:00; Status Cancel Non-Formulary Medication 1 drop Every 30 minutes RIGHT EYE ; Start 12/05/16 at 20:45; Stop 12/05/16 at 21:30; Status DC Non-Formulary Medication 0.1 ML INTRA-VITREAL INJECTION UNSCH RIGHT EYE ; Start 12/05/16 at 21:00; Stop 12/06/16 at 03:00; Status DC Non-Formulary Medication 0.1 ML INTRA-VITREAL INJECTION UNSCH RIGHT EYE ; Start 12/05/16 at 21:00; Stop 12/06/16 at 03:00; Status DC Triamcinolone Acetonide (Triesence Opth Inj) 4 mg UNSCH RIGHT EYE ; Start at 21:00 Non-Formulary Medication 1 DROP IN THE RIGHT ... Q1H RIGHT EYE Last administered on 12/06/16 08:17; Start 12/05/16 at 21:15; Stop 12/06/16 at 08:16 ; Status DC Non-Formulary Medication 1 DROP TO RIGHT EYE UNSCHEDU... Q1H RIGHT EYE Last administered on 12/09/16 06:09; Start 12/05/16 at 21:15; Stop 12/09/16 at 07:30 ; Status DC Atropine Sulfate (Isopto Atropine 1% Opth Soln) 1 drop TID RIGHT EYE Last administered on 12/17/16 18:00; Start 12/05/16 at 22:00 Prednisolone Acetate (Pred Forte 1% Opth Susp) 1 drop Q1H RIGHT EYE Last administered on 12/08/16 22:23; Start 12/05/16 at 22:00; Status Hold Proparacaine HCl (Alcaine 0.5% Opht Soln) 1 drop UNSCH PRN RIGHT EYE PROCEDURE ; Start 12/05/16 at 22:00; Stop 12/06/16 at 21:59; Status DC Lidocaine (Akten Pf 3.5% Opth Gel) 1 drop UNSCH PRN RIGHT EYE PROCEDURE; Start 12/05/16 at 22:00; Stop 12/06/16 at 21:59; Status Cancel Povidone Iodine (Betadine 10% Oint) 1 pkt UNSCH PRN .XX PROCEDURE; Start at 22:15; Stop 12/06/16 at 22:14; Status DC Cocaine HCl (Cocaine 4% Top Soln) 4 ml ONCE ONCE TOPICAL Last administered on 12/05/16 22:45; Start 12/05/16 at 22:45; Stop 12/05/16 at 22:46; Status DC Acetaminophen/ Hydrocodone Bitart ([place] 10-325 Mg) 1 tab Q3H PRN PO Last administered on 12/06/16 03:42; Start 12/06/16 at 00:15; Stop 12/06/16 at 09:17 ; Status DC Acetaminophen/ Hydrocodone Bitart ([place] 10-325 Mg) 1 tab Q4H PRN PO pain Last administered on 12/10/16 23:49; Start 12/06/16 at 12:00; Stop 12/11/16 at 17:48 ; Status DC Non-Formulary Medication 1 DROP IN THE RIGHT EYE Q1H Q1H RIGHT EYE Last administered on 12/08/16 22:22; Start 12/07/16 at 22:00; Stop 12/08/16 at 22:33 ; Status DC Non-Formulary Medication AMPHOTERICIN B OPHTHALMIC EYE DROPS 0.5%... Q30M RIGHT EYE Last administered on 12/09/16 20:19; Start 12/08/16 at 20:30; Stop at 20:01; Status DC Non-Formulary Medication AMPHOTERICIN B OPHTHALMIC EYE DROPS 0.5%... Q1H RIGHT EYE Last administered on 12/13/16 21:45; Start 12/09/16 at 20:30; Stop at 22:24; Status DC Non-Formulary Medication 1 DROP IN THE RIGHT EYE Q2H Q2H RIGHT EYE Last administered on 12/13/16 21:45; Start 12/08/16 at 23:00; Stop 12/13/16 at 22:21 ; Status DC Miscellaneous Information Patient in critical care unit? Ass... Q361D .XX ; Start 12/09/16 at 00:00 Chlorhexidine Gluconate (Chlorhexidine 2% Cloth) 3 pack DAILY@04 TOPICAL Last administered on 12/13/16 04:00; Start 12/09/16 at 04:00; Stop 12/13/16 at 04:01 ; Status DC Chlorhexidine Gluconate (Chlorhexidine 2% Cloth) 3 pack UNSCH PRN TOPICAL HYGIENIC CARE; Start 12/09/16 at 23:45; Stop 12/14/16 at 23:44; Status DC Non-Formulary Medication 1 DROP TO RIGHT EYE Q2H... Q2H RIGHT EYE Last administered on 12/13/16 00:24; Start 12/09/16 at 08:00; Stop 12/13/16 at 00:43 ; Status DC Bisacodyl (Dulcolax Ec) 10 mg DAILY PRN PO CONSTIPATION Last administered on 14:28; Start 12/11/16 at 18:00 Acetaminophen (Tylenol) 650 mg Q4H PRN PO PAIN SCALE 1 TO 10 Last administered on 12/15/16 08:30; Start 12/11/16 at 18:00 Polyethylene Glycol (Miralax) 17 gm DAILY PRN PO IF DULCOLAX NOT EFFECTIVE Last administered on 12/14/16 14:28; Start 12/12/16 at 07:45 Sodium Biphosphate/ Sodium Phosphate (Fleets Enema (Adult)) 133 ml UNSCH PRN RECTAL IF NO BM WITH OTHER LAXATIVES.; Start 12/13/16 at 08:00 Non-Formulary Medication 1 ea Q1H RIGHT EYE Last administered on 12/13/16 21: 45; Start 12/13/16 at 21:00; Stop 12/13/16 at 22:19; Status DC Non-Formulary Medication 1 ea Q30M RIGHT EYE ; Start 12/13/16 at 22:30; Stop at 22:30; Status DC Non-Formulary Medication 1 ea Q1H RIGHT EYE Last administered on 12/18/16 07:08 ; Start 12/14/16 at 07:00 Non-Formulary Medication 1 DROP IN THE RIGHT EYE Q3H Q3H RIGHT EYE Last administered on 12/14/16 22:00; Start 12/14/16 at 01:00; Stop 12/14/16 at 22:01 ; Status DC Non-Formulary Medication 1 DROP IN THE RIGHT EYE Q4H Q4H RIGHT EYE Last administered on 12/18/16 06:04; Start 12/15/16 at 02:00 Non-Formulary Medication 1 ea Q30M RIGHT EYE Last administered on 12/14/16 06: 03; Start 12/13/16 at 22:30; Stop 12/14/16 at 06:01; Status DC Non-Formulary Medication AMPHOTERICIN B OPHTHALMIC EYE DROPS 0.5%... Q4H RIGHT EYE Last administered on 12/18/16 06:05; Start 12/14/16 at 02:00 Pantoprazole Sodium (Protonix) 20 mg DAILY PO Last administered on 12/17/16 07: 54; Start 12/15/16 at 10:00 Balanced Salt Solution (Bss Opth Soln) 15 applic STK-MED ONCE .ROUTE Last administered on 12/15/16 19:56; Start 12/15/16 at 18:59; Stop 12/15/16 at 19:00 ; Status DC Neomycin/ Polymyxin/ Dexamethasone (Maxitrol Opth Oint) 3.5 applic STK-MED ONCE .ROUTE Last administered on 12/15/16 19:56; Start 12/15/16 at 19:00; Stop at 19:01; Status DC Cefazolin Sodium (Ancef Inj) 1,000 mg STK-MED ONCE .ROUTE ; Start 12/15/16 at 19 :00; Stop 12/15/16 at 19:01; Status DC Lidocaine/ Epinephrine (Xylocaine-Epi 1%-1:100,000 Inj) 20 ml STK-MED ONCE .ROUTE Last administered on 12/15/16t 19:56; Start 12/15/16 at 19:00; Stop at 19:01; Status DC Sterile Water (Sterile Water For Inj) 20 ml STK-MED ONCE .ROUTE ; Start at 19:01; Stop 12/15/16 at 19:02; Status DC Proparacaine HCl (Alcaine 0.5% Opht Soln) 1 drop ONCE ONCE RIGHT EYE ; Start at 19:15; Stop 12/15/16 at 19:16; Status DC Lidocaine/ Epinephrine (Xylocaine-Epi 1%-1:100,000 Inj) 20 ml ONCE ONCE INFIL ; Start 12/15/16 at 19:30; Stop 12/15/16 at 19:31; Status DC Lidocaine (Akten Pf 3.5% Opth Gel) 1 drop ONCE ONCE RIGHT EYE ; Start 12/15/16 at 19:30; Stop 12/15/16 at 19:31; Status Cancel Lidocaine HCl (Xylocaine 2% Jelly) 5 ml STK-MED ONCE .ROUTE ; Start 12/15/16 at 19:44; Stop 12/15/16 at 19:45; Status DC Lidocaine/ Prilocaine (Emla Cream) 5 applic STK-MED ONCE .ROUTE ; Start at 19:44; Stop 12/15/16 at 19:45; Status DC Cocaine HCl (Cocaine 4% Top Soln) 4 ml ONCE ONCE TOPICAL ; Start 12/15/16 at 20 :00; Stop 12/15/16 at 20:01; Status DC A/P Assessment and Plan A/P Endophthalmitis s/p Tap and injection of right eye with vancomycin, gentamicin and triamcinolone / removal of subconjunctival steriod right eye by Dr. Watson. right cornea culture with mold ( fusarium species) , staph epidermidis and staph auricularis Continue amphotericin, vancomycin, Voriconazole per ophthalmology. Pain management with Lortab ophthalmology following; previously d/w and plan for transfer to another facility for corneal transplant. constipation-resolved- laxatives as needed. DVT prophylaxis with SCDs Discharge Planning previously d/w ; plan for transfer the patient to another facility for corneal transplant- case management consulted. Keli Velásquez MD Dec 18, 2016 08:07
[2016-12-18] MEDS: ACETAMINOPHEN 325 MG TAB PO PRN ×3 (08:09→23:58)
[2016-12-18] MEDS: SODIUM CHLORIDE 0.9% FLUSH 10 ML FLUSH IV FLUSH SCH ×2 (08:10→21:00)
[2016-12-18] MEDS: PANTOPRAZOLE SOD 20 MG DELAYED RELEASE TAB PO SCH (08:10)
[2016-12-18] MEDS: ATROPINE SULFATE 1% OPHT SOLN 5 ML BTL RIGHT EYE SCH ×3 (09:06→18:05)
[2016-12-19] VITALS (12 sets, daily range): BP systolic 97–120; BP diastolic 61–83; PULSE 58–77; RESP 18–69; TEMP 98.2–98.7; O2SAT 96–100
[2016-12-19] MEDS: [UNRECOGNIZED DRUG - REMARK] RIGHT EYE SCH ×23 (00:59→23:23)
[2016-12-19] MEDS: AMPHOTERICIN B RIGHT EYE SCH ×6 (02:22→22:09)
[2016-12-19] MEDS: [UNRECOGNIZED DRUG - OTHER] RIGHT EYE SCH ×6 (02:22→22:09)
[2016-12-19] MEDS: VANCOMYCIN RIGHT EYE SCH ×6 (02:22→22:09)
[2016-12-19] MEDS: PANTOPRAZOLE SOD 20 MG DELAYED RELEASE TAB PO SCH (08:00)
[2016-12-19] MEDS: SODIUM CHLORIDE 0.9% FLUSH 10 ML FLUSH IV FLUSH SCH ×2 (08:01→21:00)
[2016-12-19] MEDS: ACETAMINOPHEN 325 MG TAB PO PRN ×2 (08:01→21:15)
[2016-12-19] MEDS: ATROPINE SULFATE 1% OPHT SOLN 5 ML BTL RIGHT EYE SCH ×3 (08:58→18:35)
--- NOTE | 2016-12-19 11:53 | PD.ID.CON ---
History of Present Illness Service ID Consult Requested By Reason for Consult Evaluation and Mment of Acute endopthalmitis not responding to current treatment. Primary Care Physician No Primary Care Physician Diagnoses: History of Present Illness Mr. Trivedi is a 61-year-old male with past medical history significant for chronic back pain, sciatica and schizophrenia who reports using marijuana for pleasure and pain. Patient is not a very reliable historian. Appears that the patient initially presented on November 29 or in the emergency department at [facility] with ophthalmic pain in the emergency department physician obtained consultation with ophthalmology. Patient was discharge to follow-up with Dr. Watson ophthalmological. Per my discussion with Dr. Watson and appears that where his topical antifungal's have been tried outpatient as well as at this point inpatient every hour with no change in his eye in fact there has been notice worsening. Patient reports that initially approximately 3 weeks back worse so he noticed pain in his right thigh associated with some blurring of vision. He describes the pain as very severe and 9 out of 10 associated with aching burning nature as well as amount of retro-orbital pain. Patient reports photophobia associated with this pain. 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 He denies any recent surgeries to the eye. He reports initially he had some erythema of the conjunctival area. And eventually noticed blurring of his vision. Patient at this point reports he sees light and dark and some shadows but is not able to see any detail out of the right eye. Patient reports associated congestion in his right nostril. And discussion with Dr. Watson called me to discuss the case this morning it appears that a detailed retinal exam was not possible because of corneal opacity. An US of the eye was performed. No Imaging of the eye performed based on review of records. While in hospital patient has had no endovascular workup so far. It appears that Dr. Watson the performance makeup artist was trying to perform some sort of corneal transplant procedure blood does not think he is a suitable candidate. He also tried to refer the patient to an outside facility were was not accepted for unknown reasons. Dr. Watson is concerned that if his vision seems worsening and the eye keeps worsening there may be a chance that he may need even evisceration of his eyeball. Patient denies headache, fevers, chills, nausea, vomiting, diarrhea, constipation, shortness of breath or chest pain. Patient denies any history of recurrent sinusitis. Patient denies any history of infections of the eye or any other place. ID is consulted for evaluation and Mment of acute endopthalmitis. Infectious disease is consulted for evaluation and management of acute endophthalmitis not responding to current treatment. Review of Systems ROS Limitations: Poor Historian Constitutional: DENIES: Diaphoretic episodes, Fatigue, Fever, Weight gain, Weight loss, Chills, Dizziness, Change in appetite, Night Sweats Endocrine: DENIES: Heat/cold intolerance, Polydipsia, Polyuria, Polyphagia Eyes: COMPLAINS OF: Blurred vision, Eye pain, Vision loss, Photosensitivity, DENIES: Diplopia, Eye inflammation, Double Vision Ears, nose, mouth, throat: DENIES: Tinnitus, Hearing loss, Vertigo, Nasal discharge, Oral lesions, Throat pain, Hoarseness, Ear Pain, Running Nose, Epistaxis, Sinus Pain, Toothache, Odynophagia Respiratory: DENIES: Apneas, Cough, Snoring, Wheezing, Hemoptysis, Sputum production, Shortness of breath Cardiovascular: DENIES: Chest pain, Palpitations, Syncope, Dyspnea on Exertion , PND, Lower Extremity Edema, Orthopnea, Claudication Gastrointestinal: DENIES: Abdominal pain, Black stools, Bloody stools, Constipation, Diarrhea, Nausea, Vomiting, Difficulty Swallowing, Anorexia Genitourinary: DENIES: Sexual dysfunction, Urinary frequency, Urinary incontinence, Urgency, Hematuria, Dysuria, Nocturia, Penile Discharge, Testicular Pain, Testicular Swelling Musculoskeletal: DENIES: Joint pain, Muscle aches, Stiffness, Joint Swelling, Back pain, Neck pain Integumentary: DENIES: Abnormal pigmentation, Nail changes, Pruritus, Rash Hematologic/lymphatic: DENIES: Bruising, Lymphadenopathy Immunologic/allergic: DENIES: Eczema, Urticaria Neurologic: COMPLAINS OF: Headache, DENIES: Abnormal gait, Localized weakness , Paresthesias, Seizures, Speech Problems, Tremor, Poor Balance Psychiatric: DENIES: Anxiety, Confusion, Mood changes, Depression, Hallucinations, Agitation, Suicidal Ideation, Homicidal Ideation, Delusions Except as stated in HPI: all other systems reviewed are Neg Past Family Social History Allergies: Coded Allergies: Darvocet-N 100 (Verified Allergy, Severe, Nausea/Vomiting, 12/05/16) Ibuprofen (Verified Allergy, Severe, NAUSEA, 12/05/16) Penicillin (Verified Allergy, Severe, VOMITING, SOB, 12/05/16) Opiate Agonists (Narcotics) (Verified Adverse Reaction, Unknown, Nausea/ Vomiting, 12/05/16) Past Medical History Chronic back pain, sciatica schizophrenia Past Surgical History Right thumb sutured after trauma Reported Medications Reported Meds & Active Scripts Active Hydrocodone-Acetaminophen 10-325 mg Tab 1 Tab PO Q6HR Reported Vancomycin 1.5 Gram/250 ml-D5w (Vancomycin HCl in Dextrose 5 %) 1.5 Gm/250 Ml Plast..bag 1 Drop RIGHT EYE EVERY 30 MINUTES Tobramycin Opth Drops 0.3 % Soln 1 Drop RIGHT EYE EVERY 30 MINUTES Active Ordered Medications At time of my evaluation patient was on no systemic antibiotics. Current Medications Medications (Trade) Dose Ordered Sig/Angelita Route Start Time Stop Time Status Last Admin (NS Flush) 2 ml UNSCH PRN IV FLUSH 12/05/16 20:15 (NS Flush) 2 ml BID IV FLUSH 12/05/16 21:00 12/19/16 08:01 (Tylenol) 650 mg Q4H PRN PO 12/05/16 20:15 12/19/16 08:01 (Zofran Inj) 4 mg Q6H PRN IVP 12/05/16 20:15 12/15/16 16:41 (Narcan Inj) 0.4 mg UNSCH PRN IV 12/05/16 20:15 (Triesence Opth Inj) 4 mg UNSCH RIGHT EYE 12/05/16 21:00 (Isopto Atropine 1% Opth Soln) 1 drop TID RIGHT EYE 12/05/16 22:00 12/19/16 13:01 (Pred Forte 1% Opth Susp) 1 drop Q1H RIGHT EYE 12/05/16 22:00 Hold 12/08/16 22:23 Miscellaneous Information Patient in critical care unit? Ass... [id number] .XX 12/09/16 00:00 (Dulcolax Ec) 10 mg DAILY PRN PO 12/11/16 18:00 12/14/16 14:28 (Tylenol) 650 mg Q4H PRN PO 12/11/16 18:00 12/18/16 23:58 (Miralax) 17 gm DAILY PRN PO 12/12/16 07:45 12/14/16 14:28 (Fleets Enema (Adult)) 133 ml UNSCH PRN RECTAL 12/13/16 08:00 Non-Formulary Medication 1 ea Q1H RIGHT EYE 12/14/16 07:00 12/19/16 17:42 Non-Formulary Medication 1 DROP IN THE RIGHT EYE Q4H Q4H RIGHT EYE 12/15/16 02:00 12/19/16 14:08 Non-Formulary Medication AMPHOTERICIN B OPHTHALMIC EYE DROPS 0.5%... Q4H RIGHT EYE 12/14/16 02:00 12/19/16 14:08 Pantoprazole Sodium 20 mg 20 mg DAILY PO 12/15/16 10:00 12/19/16 08:00 Cefazolin Sodium/ Dextrose 50 ml @ 100 mls/hr Q8H IV 12/19/16 13:00 12/19/16 15:32 (Ambisome Inj/ D5W Inj) 200 ml @ 100 mls/hr Q24H IV 12/19/16 14:00 12/19/16 16:39 (Vfend) 200 mg Q12HR PO 12/19/16 21:00 Family History Mother at 44 secondary to colon cancer Patient does not know his father or father's medical history Social History Patient lives at home with his significant other Patient denies EtOH use Smokes less than one pack cigarettes per day Smokes marijuana multiple times a day. Patient reports he smokes marijuana, "any time I can get it." Denies any other illicit drug use Physical Exam Vital Signs Vital Signs Date Time Temp Pulse Resp B/P Pulse Ox O2 Delivery O2 Flow Rate FiO2 12/19/16 10:00 65 12/19/16 08:00 98.7 61 20 120/71 100 12/19/16 08:00 61 12/19/16 06:00 64 12/19/16 04:00 63 12/19/16 04:00 98.2 63 30 109/61 98 12/19/16 02:00 67 12/19/16 00:00 98.4 71 69 100/63 96 12/19/16 00:00 71 12/18/16 22:00 59 12/18/16 20:00 61 12/18/16 20:00 98.2 61 19 98/63 12/18/16 18:00 67 12/18/16 16:00 98.2 70 21 102/71 98 12/18/16 16:00 70 12/18/16 14:00 63 12/18/16 12:00 69 12/18/16 12:00 98.3 69 17 107/68 96 Physical Exam GENERAL: This is a well-nourished, well-developed patient, in no apparent distress. SKIN: No rashes, ecchymoses or lesions. Cool and dry. HEAD: Atraumatic. Normocephalic. No temporal or scalp tenderness. EYES: Right eye with opacity of entire anterior chamber. No scleral or conjunctival erythema noted. No active discharge noted. Left eye with good vision and no findings of acute infection. ENT: Nose without bleeding, purulent drainage or septal hematoma. Throat without erythema, tonsillar hypertrophy or exudate. Uvula midline. Airway patent. NECK: Trachea midline. Supple, nontender, no meningeal signs. CARDIOVASCULAR: Regular rate and rhythm without murmurs. RESPIRATORY: Clear to auscultation. Breath sounds equal bilaterally. No wheezes , rales, or rhonchi. GASTROINTESTINAL: Abdomen soft, non-tender, nondistended. MUSCULOSKELETAL: Extremities without clubbing, cyanosis, or edema. No joint tenderness, effusion, or edema noted. No calf tenderness. Negative Homans sign bilaterally. NEUROLOGICAL: Awake and alert. Grossly nonfocal. Psych cooperative IV line sites with no evidence of infection. Result Diagram: 12/17/16 0513 12/17/16 0513 Imaging Last Impressions Head Magnetic Resonance Angiography 12/19/16 1226 Signed Impressions: Service Date/Time: Monday, December 19, 2016 14:15 - CONCLUSION: Normal examination for a patient of this age. Jan Coreas MD Brain MRI 12/19/16 0000 Signed Impressions: Service Date/Time: Monday, December 19, 2016 14:15 - CONCLUSION: Normal examination for a patient of this age. Jan Coreas MD Assessment and Plan Assessment and Plan Acute endopthalmitis of right eye Staph auricularis, Staph species infection of right eye. Fusarium species infection of right eye. H/o Schizophrenia Recs: Blood cultures x 2 Fungal blood cultures Check CRP Check CBC with diff, CMP Check HIV and Hepatitis panel. Follow cultures. Will d.w Micro about Fusarium Follow clinically. Start Ancef IV (for MSSA endopthalmitis) Start Amphotericin B (for fusarium infection) 2D ECHO (r/o endovascular infection) MRI brain MRA and MRV of brain to r/o arterial or venous thrombosis leading to endopthalmitis such as opthalmic vein thrombosis etc At the time of completing this note I received call from RN that patient had ST elevation on his EKG. No troponins ordered and ECHO pending. Will consult Critical Care medicine to assist with this and Central line placement. Critical thinking and decision making. Time spent in excess of 80 mins discontinuously towards care of patient. Renal dosed meds, reviewed JONELLE. [email or web address] , RN, ramp service man, . Margo Roberto MD Dec 19, 2016 11:53
[2016-12-19] MEDS: ceFAZolin 2 GM PREMIX 50 ML IV SCH ×2 (15:32→21:07)
--- NOTE | 2016-12-19 15:43 | RADRPT ---
EXAM DATE/TIME: 12/19/2016 14:15 This report includes an Addendum and supersedes previous reports for this exam. [facility] COMPARISON: No previous studies available for comparison. INDICATIONS : Cephalgia. Acute endopthalmitis. CONTRAST: 20 cc Omniscan (gadodiamide) IV MEDICAL HISTORY : None. SURGICAL HISTORY : Right eye subconjuctival removal. ENCOUNTER: Initial ACUITY: 3 weeks PAIN SCORE: 3/10 LOCATION: cranial TECHNIQUE: Multiplanar, multisequence MRI of the brain was performed both prior to and following the administrat ion of paramagnetic contrast. FINDINGS: CEREBRUM: The ventricles are normal for age. No evidence of midline shift, mass lesion, hemorrhage or acute in farction. No extraaxial fluid collections are seen. The pituitary gland and suprasellar cistern are normal in configuration. WHITE MATTER: No significant signal abnormalities are seen in the white matter. POSTERIOR FOSSA: The cerebellum and brainstem are intact. The 4th ventricle is midline. The cerebellopontine angle is unremarkable. The cerebellar tonsils are normal in position. DIFFUSION IMAGING: No focal areas of restricted diffusion are seen. No evidence of acute infarction. EXTRACRANIAL: The visualized portions of the orbits and paranasal sinuses are unremarkable. POST-CONTRAST: No abnormal areas of parenchymal or dural enhancement. No evidence of blood-brain barrier breakdown. CONCLUSION: Normal examination for a patient of this age. Jan Coreas MD on December 19, 2016 at 15:36 Board Certified Radiologist. This report was verified electronically. ADDENDUM: Comment on the right orbit with regards to the inflammatory changes. The right globe is slightly smal ler than the left globe. There is some focal pre-septal nonspecific soft tissue swelling noted latera lly to the right orbit.. However, there is no evidence of any retrobulbar soft tissue swelling or ret ro-bulbar mass. The lens appears to be in appropriate position. The intraocular muscles appear to be symmetric. The optic nerves appear to be symmetric. Alexander Khanna MD on December 22, 2016 at 11:07 Board Certified Radiologist. This report was verified electronically.
--- NOTE | 2016-12-19 15:45 | RADRPT ---
EXAM DATE/TIME: 12/19/2016 14:15 [facility] COMPARISON: No previous studies available for comparison. INDICATIONS : Acute endopthalmitis. MEDICAL HISTORY : None. SURGICAL HISTORY : Right eye subconjuctival removal. ENCOUNTER: Initial ACUITY: 3 weeks PAIN SCORE: 3/10 LOCATION: cranial Please note a normal MRA of the brain does not entirely exclude the possibility of a small aneurysm, nor the possibility of distal intracranial vessel disease. TECHNIQUE: 3D time of flight MRA was performed. Source images, multiplanar STS MIP, and 3D volume MIP reconstru ctions were reviewed. FINDINGS: There is excellent visualization of the major intracranial arteries out to the second-order branch ve ssels. There is no evidence for aneurysm, vessel truncation or stenosis, and no evidence for vascula r malformation. CONCLUSION: Normal examination for a patient of this age. Jan Coreas MD on December 19, 2016 at 15:41 Board Certified Radiologist. This report was verified electronically.
[2016-12-19] MEDS: WATER IV SCH ×2 (16:39)
[2016-12-19] MEDS: AMPHOTERICIN B LIPOSOME IV SCH ×2 (16:39)
[2016-12-19] MEDS: DEXTROSE 5% IV SCH ×2 (16:39)
[2016-12-19 17:41] LABS: AUTOMATED NEUTROPHIL # 5.9 TH/MM3 (1.8-7.7); BASOPHIL # 0.1 TH/MM3 (0-0.2); BASOPHIL % 0.7 % (0.0-2.0); EOSINOPHIL # 0.4 TH/MM3 (0-0.4); HEMATOCRIT 45.3 % (39.0-51.0); HEMO FLAGS DIFF FINAL; LYMPH % 21.7 % (9.0-44.0); MEAN CELL VOLUME 87.3 FL (80.0-100.0); MEAN CORPUSCULAR HEMOGLOBIN 29.8 PG (27.0-34.0); MEAN CORPUSCULAR HGB CONC 34.1 % (32.0-36.0); NEUT % 63.6 % (16.0-70.0); PLATELET COUNT 248 TH/MM3 (150-450); RED BLOOD COUNT 5.19 MIL/MM3 (4.50-5.90); RED CELL DISTRIBUTION WIDTH 12.3 % (11.6-17.2); WHITE BLOOD COUNT 9.3 TH/MM3 (4.0-11.0)
--- NOTE | 2016-12-19 17:53 | HHI.PR ---
Subjective Remarks pt seen today around 2pm. says tat right eye pain is stable. no cp or sob. Discussed with both Dr. Watson and Dr. Roberto today. Patient cannot be transferred to [facility] supposedly for insurance reasons. later called by nurse to report asymptomatic ST elevation on telemetry. Objective Vital Signs Date Time Temp Pulse Resp B/P Pulse Ox O2 Delivery O2 Flow Rate FiO2 12/19/16 14:00 66 12/19/16 12:00 98.2 61 19 97/82 98 12/19/16 12:00 61 12/19/16 10:00 65 12/19/16 08:00 98.7 61 20 120/71 100 12/19/16 08:00 61 12/19/16 06:00 64 12/19/16 04:00 63 12/19/16 04:00 98.2 63 30 109/61 98 12/19/16 02:00 67 12/19/16 00:00 98.4 71 69 100/63 96 12/19/16 00:00 71 12/18/16 22:00 59 12/18/16 20:00 61 12/18/16 20:00 98.2 61 19 98/63 12/18/16 18:00 67 I/O 12/18/16 12/18/16 12/18/16 12/19/16 12/19/16 12/19/16 07:00 15:00 23:00 07:00 15:00 23:00 Intake Total 210 ml 716 ml 480 ml 240 ml 600 ml Output Total 500 ml 740 ml 450 ml 600 ml 740 ml Balance -290 ml -24 ml 30 ml -360 ml -140 ml Intake Oral 200 ml 716 ml 480 ml 240 ml 600 ml IV Total 10 ml Output Urine Total 500 ml 740 ml 450 ml 600 ml 740 ml # Bowel Movements 0 0 Result Diagram: 12/17/1651212/17/16512 Objective Remarks GENERAL: sitting up in bed. NAD. AAO x3 SKIN: Warm and dry. HEAD: Normocephalic. EYES: right eye with erythema. no pus. NECK: Supple, trachea midline. No JVD. CARDIOVASCULAR: Regular rate and rhythm without murmurs, gallops, or rubs. RESPIRATORY: Breath sounds equal bilaterally. No accessory muscle use. GASTROINTESTINAL: Abdomen soft, non-tender, nondistended. MUSCULOSKELETAL: No cyanosis, or edema. BACK: Nontender without obvious deformity. No CVA tenderness. A/P Assessment and Plan //Endophthalmitis s/p Tap and injection of right eye with vancomycin, gentamicin and triamcinolone / removal of subconjunctival steriod right eye by Dr. Watson. -right cornea culture with mold ( fusarium species) , staph epidermidis and staph auricularis -Discussed with infectious disease. Antibiotics as per infectious disease. //Possible pericarditis. -Appreciate infectious disease assistance. Fretted Instruments Inspector has been consult and. //constipation-resolved- laxatives as needed. //DVT prophylaxis with SCDs Joe Deng MD Dec 19, 2016 17:53
[2016-12-19 17:59] LABS: ANION GAP 7 MEQ/L (5-15); AST (GOT) 9 U/L (15-37); BICARBONATE 30.1 MEQ/L (21.0-32.0); BLOOD UREA NITROGEN 24 MG/DL (7-18); CHLORIDE 104 MEQ/L (98-107); GLOMERULAR FILTRATION RATE 75 ML/MIN (>89); MAGNESIUM 2.1 MG/DL (1.5-2.5); POTASSIUM 4.2 MEQ/L (3.5-5.1); SODIUM (NA) 141 MEQ/L (136-145)
[2016-12-19 18:03] LABS: ALKALINE PHOSPHATASE 60 U/L (45-117); ALT (GPT) 18 U/L (12-78); TOTAL BILIRUBIN ADULT 0.2 MG/DL (0.2-1.0)
--- NOTE | 2016-12-19 18:09 | RADRPT ---
EXAM DATE/TIME: 12/19/2016 14:15 COMPARISON: No previous studies available for comparison. INDICATIONS : Ophthalmic vein thrombosis. CONTRAST: 20 cc Omniscan (gadodiamide) IV MEDICAL HISTORY : None. SURGICAL HISTORY : Right eye subconjuctival removal. ENCOUNTER: Initial ACUITY: 3 weeks PAIN SCORE: 3/10 LOCATION: cranial FINDINGS: MRV reveals patent dural sinuses. There is some signal dropout anteriorly and the ophthalmic veins ar e not directly or clearly visualized. No ophthalmic vein enlargement seen on the correlative MRI nimisha n. CONCLUSION: Unremarkable MRV of the brain. Jan Coreas MD on December 19, 2016 at 18:01 Board Certified Radiologist. This report was verified electronically.
--- NOTE | 2016-12-19 18:36 | PD.CONS ---
[facility] Service Critical Care Medicine Consult Requested By Dr. Roberto Reason for Consult Evaluation of ST elevation on EKG. Placement of central line. Primary Care Physician No Primary Care Physician History of Present Illness This is a 61-year-old male. Date of admission 12/05/2016. Date of consultation 12/19/2016. Past medical history includes chronic low back pain, sciatica and schizophrenia. Discussion with patient reviewing medical records from hospitalist infectious disease, patient reported right eye pain associated burning/aching on December 02 [place] [facility]. 12/02/16. At the ER he was diagnosed with a corneal ulcer and was about to get transferred to [facility] - in [place] recommended starting him on fortified vancomycin and fortified tobramycin alternating q30m and to follow up with Ophtho in [facility]. Patient states he has been compliant with the drops and has not noticed any improvement in pain or vision.. Signs of photophobia. Denies any recent trauma/surgeries to his eye. He was discharged to follow up with Dr. Watson/ophthalmology on December 05. According to records, was tried on outpatient antifungals topical as well as inpatient every hour with no changes in his eye. In reviewing records, right eye pain with blurry vision, photophobia, retro- orbital pain improved with closing right eye only. No recent surgical traumas. Works landscaping and gardening. Today, there is concern for ST elevation in leads V1 through V6 leads 1 and 2, 3 and aVF. Patient denied any chest pain, positional no auscultation of overall lower sternal edge during end expiration with patient sitting up and leaning forward. Denies chest pain, tachypnea, and he is currently hemodynamically stable and afebrile. Perform CT chest now as echocardiogram not, completed. Inflammatory markers, cardiac markers all within ordered currently as well. Of note, we were consulted for central line placement as well. Patient is currently refusing. Benefits and risks including worsening of eye pathology including possible evisceration procedure the patient. He displays understanding of these risks and currently refuses. A I Of note, there is concern for headache, thrombotic arterial or venous event. MRI/MRA/MRV of brain all negative. Review of Systems Constitutional: DENIES: Fatigue, Fever, Weight gain, Weight loss, Chills Eyes: COMPLAINS OF: Blurred vision, Diplopia, Eye inflammation, Eye pain, Vision loss, Photosensitivity, Double Vision Ears, nose, mouth, throat: DENIES: Tinnitus, Odynophagia Respiratory: DENIES: Apneas Cardiovascular: DENIES: Chest pain, Palpitations, Orthopnea Gastrointestinal: DENIES: Abdominal pain Genitourinary: DENIES: Sexual dysfunction Musculoskeletal: DENIES: Joint pain, Stiffness Integumentary: DENIES: Abnormal pigmentation Hematologic/lymphatic: DENIES: Bruising Immunologic/allergic: DENIES: Eczema Neurologic: DENIES: Abnormal gait, Headache Psychiatric: DENIES: Confusion Past Family Social History Allergies: Coded Allergies: Darvocet-N 100 (Verified Allergy, Severe, Nausea/Vomiting, 12/05/16) Ibuprofen (Verified Allergy, Severe, NAUSEA, 12/05/16) Penicillin (Verified Allergy, Severe, VOMITING, SOB, 12/05/16) Opiate Agonists (Narcotics) (Verified Adverse Reaction, Unknown, Nausea/ Vomiting, 12/05/16) Past Medical History Schizophrenia Chronic low back pain Sciatica Past Surgical History Right thumb trauma Reported Medications Vancomycin 1.5 g /250 mL D5 water 1.5 g one drop right eye every 30 minutes. Tobramycin ophthalmology drops 0.2% solution 1 drop right eye every 30 minutes Active Ordered Medications Reviewed in EMR Family History Mother age 44 secondary to colon cancer. Patient does not know father's history. Social History Denies EtOH use. Less than 1 pack per day tobacco 40 years. Positive THC use. No other illicit drug use. Physical Exam Vital Signs Vital Signs Date Time Temp Pulse Resp B/P Pulse Ox O2 Delivery O2 Flow Rate FiO2 12/19/16 14:00 66 12/19/16 12:00 98.2 61 19 97/82 98 12/19/16 12:00 61 12/19/16 10:00 65 12/19/16 08:00 98.7 61 20 120/71 100 12/19/16 08:00 61 12/19/16 06:00 64 12/19/16 04:00 63 12/19/16 04:00 98.2 63 30 109/61 98 12/19/16 02:00 67 12/19/16 00:00 98.4 71 69 100/63 96 12/19/16 00:00 71 12/18/16 22:00 59 12/18/16 20:00 61 12/18/16 20:00 98.2 61 19 98/63 Physical Exam GENERAL: 61-year-old male, resting in bed in no acute distress SKIN: Warm and dry. Well perfused currently HEAD: Atraumatic. Normocephalic. EYES: Right pupil with opacity throughout entire anterior chamber. No erythema noted. No discharge. Left pupil is about 3 Kumari's bilaterally and reactive. No scleral icterus. ENT: No nasal bleeding or discharge. No purulent drainage. Mucous membranes pink and moist. Oropharynx without erythema or axis. NECK: Trachea midline. No JVD. No meningeal signs. CARDIOVASCULAR: Regular rate and rhythm. S1, S2. No S4. Without murmurs, clicks, gallops, or rubs specifically in patient leaning forward and auscultating at apex. RESPIRATORY: No accessory muscle use. Clear to auscultation. Breath sounds equal bilaterally. GASTROINTESTINAL: Abdomen soft, non-tender, nondistended. I Joseph bowel sounds are appreciated MUSCULOSKELETAL: Extremities without clubbing, cyanosis, or edema. No obvious deformities. No joint tenderness or effusions noted. NEUROLOGICAL: Awake and alert. No obvious cranial nerve deficits. Motor grossly within normal limits. Five out of 5 muscle strength in the arms and legs. Normal speech. Laboratory Laboratory Tests Test 12/19/16 17:31 White Blood Count 9.3 Red Blood Count 5.19 Hemoglobin 15.4 Hematocrit 45.3 Mean Corpuscular Volume 87.3 Mean Corpuscular Hemoglobin 29.8 Mean Corpuscular Hemoglobin 34.1 Concent Red Cell Distribution Width 12.3 Platelet Count 248 Mean Platelet Volume 7.3 Neutrophils (%) (Auto) 63.6 Lymphocytes (%) (Auto) 21.7 Monocytes (%) (Auto) 10.0 Eosinophils (%) (Auto) 4.0 Basophils (%) (Auto) 0.7 Neutrophils # (Auto) 5.9 Lymphocytes # (Auto) 2.0 Monocytes # (Auto) 0.9 Eosinophils # (Auto) 0.4 Basophils # (Auto) 0.1 CBC Comment DIFF FINAL Differential Comment Sodium Level 141 Potassium Level 4.2 Chloride Level 104 Carbon Dioxide Level 30.1 Anion Gap 7 Blood Urea Nitrogen 24 Creatinine 1.01 Estimat Glomerular Filtration 75 Rate Random Glucose 88 Calcium Level 8.7 Phosphorus Level 3.9 Magnesium Level 2.1 Total Bilirubin 0.2 Aspartate Amino Transf 9 (AST/SGOT) Alanine Aminotransferase 18 (ALT/SGPT) Alkaline Phosphatase 60 C-Reactive Protein LESS THAN 0.29 Total Protein 7.2 Albumin 3.6 Date/Time Procedure Status Source Growth 12/19/16 13:27 Aerobic Blood Culture Received Blood Peripheral Pending 12/19/16 13:27 Anaerobic Blood Culture Received Blood Peripheral Pending Result Diagram: 12/19/16 1731 12/19/16 1731 Imaging Last Impressions Head/Brain Mag Res Venography 12/19/16 1226 Signed Impressions: Service Date/Time: Monday, December 19, 2016 14:15 - CONCLUSION: Unremarkable MRV of the brain. Jan Coreas MD Head Magnetic Resonance Angiography 12/19/16 1226 Signed Impressions: Service Date/Time: Monday, December 19, 2016 14:15 - CONCLUSION: Normal examination for a patient of this age. Jan Coreas MD Brain MRI 12/19/16 0000 Signed Impressions: Service Date/Time: Monday, December 19, 2016 14:15 - CONCLUSION: Normal examination for a patient of this age. Jan Coreas MD Assessment and Plan Assessment and Plan Neuro/Psych: Schizophrenia Patient is currently in acetaminophen for fever/pain. Not on any baseline medications for his underlying schizophrenia. CV: Diffuse ST elevation. No previous EKG available to compare Patient is currently denying chest pain. No rub appreciated on auscultation. Afebrile. Recommend cardiac markers, inflammatory markers including CRP, ESR and ADRIANA. CT thorax has been ordered. Echocardiogram has been ordered. Await results before initiating any therapy. Again the patient appears asymptomatic at the present time. Resp: Nasal cannula to maintain saturations greater than equal to 92% Incentive spirometry while awake CT chest ordered GI: Continue diet. No indication for GI prophylaxis Initiated bowel regimen if indicated : Silva catheter if indicated Endo: Renal: Creatinine currently within normal limits. Accurate I's and O's Monitor urine output Heme: CBC within normal limits. Recheck in a.m. ID: Right eye acute endophthalmitis Staph auricularis/fuse area infection right eye Currently on Vfend 200 mg every 12 hours, Ancef 2 g IV every 8 hours and amphotericin B 310 milligrams IV every 24 hours, Amphotericin B 0.5% 1 drop every 4 hours right eye, ecchymosis and 25 mg per Kumari. 1 drop right eye every 4 hours, voriconazole 0.5 mill grams/milliliter 1 drop each eye nightly hours atropine 1% one drop right eye 3 times a day Pertinent cultures 12/19 - blood cultures 2 - no growth 12/06 - right eye anterior chamber -fusiform species 12/06 - right eye - staph auricularis, epidermidis and Fusarium species MSK: Chronic low back pain Sciatica PT evaluate and treat FEN: Replace electrolytes as clinically indicated Access - Utilize peripheral IV. - Noted consulted for central line placement. Patient refuses. Benefits and risks discussed above. Rest include worsening of ophthalmology symptomatology right eye evisceration. He states he understands and he refuses central line placement. Prophylaxis - GI - not indicated - DVT - SCDs Level II consult. We will sign off. Call if questions arise. Code Status Full code Discussed Condition With Dr. Alberto. Patient. Care plan discussed and all questions answered. Ibrahima Fu MD Dec 19, 2016 18:36
[2016-12-19] MEDS ORDERED: GADODIAMIDE PF 287 MG/ML 20 ML VIAL (for RAD MRI) IV ONE (18:38)
--- NOTE | 2016-12-19 19:24 | RADRPT ---
EXAM DATE/TIME: 12/19/2016 19:00 [place] COMPARISON: No previous studies available for comparison. INDICATIONS : Possible pericarditis. RADIATION DOSE: 5.10 CTDIvol (mGy) MEDICAL HISTORY : Gastroesophageal reflux disease. Asthma SURGICAL HISTORY : None. ENCOUNTER: Initial ACUITY: 1 day PAIN SCALE: 0/10 LOCATION: chest TECHNIQUE: Volumetric scanning of the chest was performed. Using automated exposure control and adjustment of t he mA and/or kV according to patient size, radiation dose was kept as low as reasonably achievable to obtain optimal diagnostic quality images. DICOM format image data is available electronically for r eview and comparison. FINDINGS: LUNGS: There is a calcified granuloma in the right upper lung. PLEURAE: There is no pleural thickening or pleural effusion. MEDIASTINUM: There is a calcified right paratracheal lymph node. Calcified coronary arteries are seen. Pericardial and does not appear thickened. A significant pericardial effusion is not present. Soft tissue adenop athy is not seen. AXILLAE: Within normal limits. No lymphadenopathy. MUSCULOSKELETAL: Within normal limits for patient age. MISCELLANEOUS: The visualized upper abdominal organs demonstrate no acute abnormality. Calcified granulomas are seen in the spleen. CONCLUSION: 1. Evidence of granulomatous exposure with a right upper lobe calcified granuloma, right paratracheal calcified lymph node, and splenic calcified granulomas. 2. The pericardium is not thickened. A pericardial effusion is not present. Oleksandr Mathew MD on December 19, 2016 at 19:19 Board Certified Radiologist. This report was verified electronically.
[2016-12-19 20:37] LABS: CREATINE KINASE 29 U/L (39-308)
[2016-12-19] MEDS: VORICONAZOLE 200 MG TAB PO SCH (21:07)
[2016-12-19 21:58] LABS: RHEUMATOID FACTOR TRIGGER LESS THAN 10.0 IU/ML (0.0-14.9)
[2016-12-20] VITALS (12 sets, daily range): BP systolic 83–114; BP diastolic 53–75; PULSE 55–74; RESP 18–33; TEMP 98.1–98.5; O2SAT 98–100
[2016-12-20] MEDS: [UNRECOGNIZED DRUG - REMARK] RIGHT EYE SCH ×24 (01:26→23:00)
[2016-12-20] MEDS: AMPHOTERICIN B RIGHT EYE SCH ×6 (02:10→20:24)
[2016-12-20] MEDS: [UNRECOGNIZED DRUG - OTHER] RIGHT EYE SCH ×6 (02:10→20:24)
[2016-12-20] MEDS: VANCOMYCIN RIGHT EYE SCH ×6 (02:10→20:24)
[2016-12-20] MEDS: ACETAMINOPHEN 325 MG TAB PO PRN ×4 (03:18→18:47)
[2016-12-20] MEDS: ceFAZolin 2 GM PREMIX 50 ML IV SCH ×3 (04:59→20:22)
[2016-12-20] MEDS: PANTOPRAZOLE SOD 20 MG DELAYED RELEASE TAB PO SCH (09:49)
[2016-12-20] MEDS: VORICONAZOLE 200 MG TAB PO SCH ×2 (09:49→20:22)
--- NOTE | 2016-12-20 09:50 | EKG ---
Date Performed: 12/19/2016 Time Performed: 17:03:02 PTAGE: 61 years EKG: Sinus rhythm Extensive ST elevation suggests pericarditis Abnormal ECG NO PREVIOUS TRACING DOCTOR: Emile Flores Interpretating Date/Time 12/20/2016 09:49:03
[2016-12-20] MEDS: SODIUM CHLORIDE 0.9% FLUSH 10 ML FLUSH IV FLUSH SCH ×2 (09:52→20:22)
[2016-12-20] MEDS: ATROPINE SULFATE 1% OPHT SOLN 5 ML BTL RIGHT EYE SCH ×3 (10:05→18:00)
--- NOTE | 2016-12-20 12:45 | ECHRPT ---
Indication: Severe sepsis without septic shock CONCLUSIONS Normal left ventricular size. Mild concentric left ventricular hypertrophy. The left ventricular systolic function is low normal with an estimated ejection fraction in the rang e of 50- 55%. Structurally normal mitral valve. Mild mitral annular calcification. No mitral valve stenosis. BP: 97 / 82 HR: 66 Rhythm: Sinus MEASUREMENTS (Male / Female) Normal Values Technical Quality:Fair 2D ECHO LV Diastolic Diameter PLAX 4.7 cm 4.2 - 5.9 / 3.9 - 5.3 cm LV Systolic Diameter PLAX 3.5 cm IVS Diastolic Thickness 1.1 cm 0.6 - 1.0 / 0.6 - 0.9 cm LVPW Diastolic Thickness 0.6 cm 0.6 - 1.0 / 0.6 - 0.9 cm LV Relative Wall Thickness 0.4 RV Internal Dim ED PLAX 2.4 cm LA Systolic Diameter LX 2.6 cm 3.0 - 4.0 / 2.7 - 3.8 cm DOPPLER Mitral E Point Velocity 51.3 cm/s Mitral A Point Velocity 64.2 cm/s Mitral E to A Ratio 0.8 TR Peak Velocity 221.0 cm/s TR Peak Gradient 19.5 mmHg FINDINGS LEFT VENTRICLE Normal left ventricular size. Mild concentric left ventricular hypertrophy. The left ventricular systolic function is low normal with an estimated ejection fraction in the rang e of 50- 55%. RIGHT VENTRICLE Normal right ventricular size and systolic function. LEFT ATRIUM The left atrial size is normal. RIGHT ATRIUM The right atrial size is normal. ATRIAL SEPTUM Normal atrial septal thickness without atrial level shunting by limited color doppler interrogation. AORTA The aortic root and proximal ascending aorta are normal in size on limited imaging. MITRAL VALVE Structurally normal mitral valve. Mild mitral annular calcification. No mitral valve stenosis. AORTIC VALVE Trileaflet aortic valve. No aortic valve stenosis or regurgitation. TRICUSPID VALVE Structurally normal tricuspid valve. No tricuspid valve stenosis or regurgitation. PULMONARY VALVE The pulmonary valve is not well visualized. VESSELS The inferior vena cava is normal in size. PERICARDIUM No pericardial effusion. Emile Flores MD, FACC (Electronically Signed) Final Date:20 December 2016 12:44
[2016-12-20] MEDS: WATER IV SCH ×2 (14:00)
[2016-12-20] MEDS: AMPHOTERICIN B LIPOSOME IV SCH ×2 (14:00)
[2016-12-20] MEDS: DEXTROSE 5% IV SCH ×2 (14:00)
--- NOTE | 2016-12-20 16:07 | HHI.IDPN ---
Subjective Subjective Remarks Mr. Trivedi is a 61-year-old male with past medical history significant for chronic back pain, sciatica and schizophrenia who reports using marijuana for pleasure and pain. Patient is not a very reliable historian. Appears that the patient initially presented on November 29 or in the emergency department at [facility] with ophthalmic pain in the emergency department physician obtained consultation with ophthalmology. ID following for acute endopthalmitis( fungal and bacterial) Overnight events reviewed No fevers No rash No diarrhea No chest pain or SOB. Refused a Central line and refuses Ampho IV. Antibiotics Ancef IV Ampho IV (pt refused) Voriconazole. Lines Line sites with no e.o infection. Past Medical History reviewed Allergies: Coded Allergies: Darvocet-N 100 (Verified Allergy, Severe, Nausea/Vomiting, 12/05/16) Ibuprofen (Verified Allergy, Severe, NAUSEA, 12/05/16) Penicillin (Verified Allergy, Severe, VOMITING, SOB, 12/05/16) Opiate Agonists (Narcotics) (Verified Adverse Reaction, Unknown, Nausea/ Vomiting, 12/05/16) Objective . Vital Signs Date Time Temp Pulse Resp B/P Pulse Ox O2 Delivery O2 Flow Rate FiO2 12/20/16 14:00 66 12/20/16 12:00 65 12/20/16 12:00 98.5 65 18 107/75 100 12/20/16 10:00 74 12/20/16 08:00 62 12/20/16 08:00 98.1 63 24 114/69 100 12/20/16 06:00 55 12/20/16 04:59 25 12/20/16 04:00 98.5 58 18 84/55 12/20/16 04:00 58 12/20/16 02:00 61 12/20/16 00:00 98.3 60 33 103/58 98 12/20/16 00:00 60 12/19/16 22:00 58 12/19/16 20:00 98.6 77 29 110/83 97 12/19/16 20:00 77 12/19/16 18:00 72 12/19/16 12/19/16 12/20/16 15:00 23:00 07:00 Intake Total 600 ml 555 ml 316 ml Output Total 740 ml 800 ml 650 ml Balance -140 ml -245 ml -334 ml Intake Oral 600 ml 480 ml 240 ml IV Total 75 ml 76 ml Output Urine Total 740 ml 800 ml 650 ml # Bowel Movements 0 0 . Laboratory Tests Test 12/19/16 17:31 White Blood Count 9.3 TH/MM3 Red Blood Count 5.19 MIL/MM3 Hemoglobin 15.4 GM/DL Hematocrit 45.3 % Mean Corpuscular Volume 87.3 FL Mean Corpuscular Hemoglobin 29.8 PG Mean Corpuscular Hemoglobin 34.1 % Concent Red Cell Distribution Width 12.3 % Platelet Count 248 TH/MM3 Mean Platelet Volume 7.3 FL Neutrophils (%) (Auto) 63.6 % Lymphocytes (%) (Auto) 21.7 % Monocytes (%) (Auto) 10.0 % Eosinophils (%) (Auto) 4.0 % Basophils (%) (Auto) 0.7 % Neutrophils # (Auto) 5.9 TH/MM3 Lymphocytes # (Auto) 2.0 TH/MM3 Monocytes # (Auto) 0.9 TH/MM3 Eosinophils # (Auto) 0.4 TH/MM3 Basophils # (Auto) 0.1 TH/MM3 CBC Comment DIFF FINAL Differential Comment Erythrocyte Sedimentation Rate 2 mm/hr Laboratory Tests Test 12/19/16 17:31 Sodium Level 141 MEQ/L Potassium Level 4.2 MEQ/L Chloride Level 104 MEQ/L Carbon Dioxide Level 30.1 MEQ/L Anion Gap 7 MEQ/L Blood Urea Nitrogen 24 MG/DL Creatinine 1.01 MG/DL Estimat Glomerular Filtration 75 ML/MIN Rate Random Glucose 88 MG/DL Calcium Level 8.7 MG/DL Phosphorus Level 3.9 MG/DL Magnesium Level 2.1 MG/DL Total Bilirubin 0.2 MG/DL Aspartate Amino Transf 9 U/L (AST/SGOT) Alanine Aminotransferase 18 U/L (ALT/SGPT) Alkaline Phosphatase 60 U/L Total Creatine Kinase 29 U/L Troponin I LESS THAN 0.02 NG/ML C-Reactive Protein LESS THAN 0.29 MG/DL Total Protein 7.2 GM/DL Albumin 3.6 GM/DL Microbiology Date/Time Procedure Status Source Growth 12/19/16 13:22 Aerobic Blood Culture - Preliminary Resulted Blood Peripheral NO GROWTH IN 1 DAY 12/19/16 13:22 Anaerobic Blood Culture - Preliminary Resulted Blood Peripheral NO GROWTH IN 1 DAY 12/19/16 13:22 Blood Fungal Culture Resulted Blood Peripheral Pending 12/19/16 13:22 Blood Fungal Culture Resulted Blood Peripheral Pending 12/19/16 13:27 Aerobic Blood Culture - Preliminary Resulted Blood Peripheral NO GROWTH IN 1 DAY 12/19/16 13:27 Anaerobic Blood Culture - Preliminary Resulted Blood Peripheral NO GROWTH IN 1 DAY Imaging Last Impressions Head/Brain Mag Res Venography 12/19/16 1226 Signed Impressions: Service Date/Time: Monday, December 19, 2016 14:15 - CONCLUSION: Unremarkable MRV of the brain. Jan Coreas MD Head Magnetic Resonance Angiography 12/19/16 1226 Signed Impressions: Service Date/Time: Monday, December 19, 2016 14:15 - CONCLUSION: Normal examination for a patient of this age. Jan Coreas MD Chest CT 12/19/16 0000 Signed Impressions: Service Date/Time: Monday, December 19, 2016 19:00 - CONCLUSION: 1. Evidence of granulomatous exposure with a right upper lobe calcified granuloma, right paratracheal calcified lymph node, and splenic calcified granulomas. 2. The pericardium is not thickened. A pericardial effusion is not present. Oleksandr Mathew MD Brain MRI 12/19/16 0000 Signed Impressions: Service Date/Time: Monday, December 19, 2016 14:15 - CONCLUSION: Normal examination for a patient of this age. Jan Coreas MD Physical Exam GENERAL: This is a well-nourished, well-developed patient, in no apparent distress. SKIN: No rashes, ecchymoses or lesions. Cool and dry. HEAD: Atraumatic. Normocephalic. No temporal or scalp tenderness. EYES: Right eye with opacity of entire anterior chamber. No scleral or conjunctival erythema noted. No active discharge noted. Left eye with good vision and no findings of acute infection. ENT: Nose without bleeding, purulent drainage or septal hematoma. Throat without erythema, tonsillar hypertrophy or exudate. Uvula midline. Airway patent. NECK: Trachea midline. Supple, nontender, no meningeal signs. CARDIOVASCULAR: Regular rate and rhythm without murmurs. RESPIRATORY: Clear to auscultation. Breath sounds equal bilaterally. No wheezes , rales, or rhonchi. GASTROINTESTINAL: Abdomen soft, non-tender, nondistended. MUSCULOSKELETAL: Extremities without clubbing, cyanosis, or edema. No joint tenderness, effusion, or edema noted. No calf tenderness. Negative Homans sign bilaterally. NEUROLOGICAL: Awake and alert. Grossly nonfocal. Psych cooperative IV line sites with no evidence of infection. Assessment & Plan Remarks Acute endopthalmitis of right eye Staph auricularis, Staph species infection of right eye. Fusarium species infection of right eye. H/o Schizophrenia Recs: Blood cultures x 2 Fungal blood cultures Follow cultures. Will d.w Micro about Fusarium Follow clinically. Continue Ancef IV (for MSSA endopthalmitis) DC IV Amphotericin B Continue Voriconazole (for fusarium infection) 2D ECHO negative for vegetations. MRI brain, MRA and MRV of brain normal. d/w Case management Margo Avila MD Dec 20, 2016 16:07
--- NOTE | 2016-12-20 23:56 | HHI.PR ---
Subjective Remarks patient seen this morning around 10 AM. Says he is feeling all right. Reports pain is controlled. Denies any chest pain or shortness of breath. Denies any nausea or vomiting. Objective Vital Signs Date Time Temp Pulse Resp B/P Pulse Ox O2 Delivery O2 Flow Rate FiO2 12/20/16 22:00 62 12/20/16 20:00 61 12/20/16 20:00 98.4 61 18 112/74 12/20/16 18:00 68 12/20/16 16:00 98.3 57 18 83/53 100 12/20/16 16:00 55 12/20/16 14:00 66 12/20/16 12:00 65 12/20/16 12:00 98.5 65 18 107/75 100 12/20/16 10:00 74 12/20/16 08:00 62 12/20/16 08:00 98.1 63 24 114/69 100 12/20/16 06:00 55 12/20/16 04:59 25 12/20/16 04:00 98.5 58 18 84/55 12/20/16 04:00 58 12/20/16 02:00 61 12/20/16 00:00 98.3 60 33 103/58 98 12/20/16 00:00 60 I/O 12/19/16 12/19/16 12/19/16 12/20/16 12/20/16 12/20/16 07:00 15:00 23:00 07:00 15:00 23:00 Intake Total 240 ml 600 ml 555 ml 316 ml 780 ml 436 ml Output Total 600 ml 740 ml 800 ml 650 ml 760 ml 1300 ml Balance -360 ml -140 ml -245 ml -334 ml 20 ml -864 ml Intake Oral 240 ml 600 ml 480 ml 240 ml 720 ml 350 ml IV Total 75 ml 76 ml 60 ml 86 ml Output Urine Total 600 ml 740 ml 800 ml 650 ml 760 ml 1300 ml # Bowel Movements 0 0 0 0 0 Result Diagram: 12/19/16173012/19/161730 Objective Remarks GENERAL: sitting up in bed. NAD. AAO x3no appreciable change on exam. SKIN: Warm and dry. HEAD: Normocephalic. EYES: right eye with erythema. no pus. NECK: Supple, trachea midline. No JVD. CARDIOVASCULAR: Regular rate and rhythm without murmurs, gallops, or rubs. RESPIRATORY: Breath sounds equal bilaterally. No accessory muscle use. GASTROINTESTINAL: Abdomen soft, non-tender, nondistended. MUSCULOSKELETAL: No cyanosis, or edema. BACK: Nontender without obvious deformity. No CVA tenderness. A/P Assessment and Plan //Endophthalmitis s/p Tap and injection of right eye with vancomycin, gentamicin and triamcinolone / removal of subconjunctival steriod right eye by Dr. Watson. -right cornea culture with mold ( fusarium species) , staph epidermidis and staph auricularis -Discussed with infectious disease. Antibiotics as per infectious disease. //Possible pericarditis. -Appreciate infectious disease assistance. -asymptomatic. //constipation-resolved- laxatives as needed. //DVT prophylaxis with SCDs Joe Deng MD Dec 20, 2016 23:56
[2016-12-21] VITALS (13 sets, daily range): BP systolic 101–137; BP diastolic 69–77; PULSE 56–69; RESP 18–37; TEMP 97.7–98.5; O2SAT 97
[2016-12-21] MEDS: [UNRECOGNIZED DRUG - REMARK] RIGHT EYE SCH ×24 (01:00→23:07)
[2016-12-21] MEDS: VANCOMYCIN RIGHT EYE SCH ×6 (02:00→22:18)
[2016-12-21] MEDS: [UNRECOGNIZED DRUG - OTHER] RIGHT EYE SCH ×6 (02:00→22:18)
[2016-12-21] MEDS: AMPHOTERICIN B RIGHT EYE SCH ×6 (02:00→22:19)
[2016-12-21] MEDS: ceFAZolin 2 GM PREMIX 50 ML IV SCH ×3 (05:03→20:31)
[2016-12-21] MEDS: ACETAMINOPHEN 325 MG TAB PO PRN ×3 (06:34→17:02)
[2016-12-21] MEDS: PANTOPRAZOLE SOD 20 MG DELAYED RELEASE TAB PO SCH (07:58)
[2016-12-21] MEDS: VORICONAZOLE 200 MG TAB PO SCH ×2 (07:58→20:33)
[2016-12-21] MEDS: ATROPINE SULFATE 1% OPHT SOLN 5 ML BTL RIGHT EYE SCH ×3 (08:02→18:58)
[2016-12-21] MEDS: BISACODYL EC 5 MG TABEC PO PRN (08:23)
[2016-12-21] MEDS: SODIUM CHLORIDE 0.9% FLUSH 10 ML FLUSH IV FLUSH SCH ×2 (09:00→20:32)
[2016-12-21] MEDS: DEXTROSE 5%-NACL 0.225% INJ 1,000 ML IV SCH (13:10)
[2016-12-21] MEDS: WATER IV SCH ×2 (15:20)
[2016-12-21] MEDS: AMPHOTERICIN B LIPOSOME IV SCH ×2 (15:20)
[2016-12-21] MEDS: DEXTROSE 5% IV SCH ×2 (15:20)
--- NOTE | 2016-12-21 22:51 | HHI.PR ---
Subjective Remarks patient seen this morning around 11 AM. Says she is feeling all right. Reports pain is controlled. Continues with absent eyesight from right eye. I discussed the case with infectious disease Objective Vital Signs Date Time Temp Pulse Resp B/P Pulse Ox O2 Delivery O2 Flow Rate FiO2 12/21/16 18:00 68 12/21/16 16:00 98.2 12/21/16 16:00 59 21 108/71 12/21/16 16:00 59 12/21/16 14:00 62 12/21/16 12:00 98.5 12/21/16 12:00 67 20 101/69 97 12/21/16 12:00 67 12/21/16 10:00 61 12/21/16 08:01 63 21 137/70 12/21/16 08:01 63 12/21/16 08:00 64 31 12/21/16 08:00 97.7 12/21/16 08:00 64 12/21/16 06:00 60 12/21/16 04:00 59 12/21/16 04:00 98.4 69 27 12/21/16 02:00 58 12/21/16 00:00 98.2 57 18 103/69 12/21/16 00:00 56 I/O 12/20/16 12/20/16 12/20/16 12/21/16 12/21/16 12/21/16 07:00 15:00 23:00 07:00 15:00 23:00 Intake Total 316 ml 780 ml 436 ml 763 ml 1184 ml Output Total 650 ml 760 ml 1300 ml 500 ml 450 ml 500 ml Balance -334 ml 20 ml -864 ml 263 ml 734 ml -500 ml Intake Oral 240 ml 720 ml 350 ml 710 ml 960 ml IV Total 76 ml 60 ml 86 ml 53 ml 224 ml Output Urine Total 650 ml 760 ml 1300 ml 500 ml 450 ml 500 ml # Bowel Movements 0 0 0 0 Result Diagram: 12/19/16 17312/19/161730 Objective Remarks GENERAL: sitting up in bed. NAD. AAO x3 no appreciable change on exam. SKIN: Warm and dry. HEAD: Normocephalic. EYES: right eye with erythema. no pus. NECK: Supple, trachea midline. No JVD. CARDIOVASCULAR: Regular rate and rhythm without murmurs, gallops, or rubs. RESPIRATORY: Breath sounds equal bilaterally. No accessory muscle use. GASTROINTESTINAL: Abdomen soft, non-tender, nondistended. MUSCULOSKELETAL: No cyanosis, or edema. BACK: Nontender without obvious deformity. No CVA tenderness. A/P Assessment and Plan //Endophthalmitis s/p Tap and injection of right eye with vancomycin, gentamicin and triamcinolone / removal of subconjunctival steriod right eye by Dr. Watson. -right cornea culture with mold ( fusarium species) , staph epidermidis and staph auricularis -Discussed with infectious disease. Antibiotics as per infectious disease.7/ 6adjust fluids due to discomfort with infusion. //Possible pericarditis. -Appreciate infectious disease assistance. -on EKG, however echocardiogram negative //constipation-resolved- laxatives as needed. //DVT prophylaxis with SCDs Joe Deng MD Dec 21, 2016 22:51
[2016-12-22] VITALS (12 sets, daily range): BP systolic 95–149; BP diastolic 52–77; PULSE 57–78; RESP 16–29; TEMP 97.9–98.4; O2SAT 97–99
[2016-12-22] MEDS: [UNRECOGNIZED DRUG - REMARK] RIGHT EYE SCH ×20 (00:18→20:07)
[2016-12-22] MEDS: VANCOMYCIN RIGHT EYE SCH ×6 (02:03→22:21)
[2016-12-22] MEDS: AMPHOTERICIN B RIGHT EYE SCH ×6 (02:03→22:21)
[2016-12-22] MEDS: [UNRECOGNIZED DRUG - OTHER] RIGHT EYE SCH ×6 (02:03→22:21)
[2016-12-22] MEDS: ceFAZolin 2 GM PREMIX 50 ML IV SCH ×3 (05:18→22:20)
[2016-12-22] MEDS: ATROPINE SULFATE 1% OPHT SOLN 5 ML BTL RIGHT EYE SCH ×3 (08:29→17:41)
[2016-12-22] MEDS: VORICONAZOLE 200 MG TAB PO SCH ×2 (08:30→22:20)
[2016-12-22] MEDS: PANTOPRAZOLE SOD 20 MG DELAYED RELEASE TAB PO SCH (08:31)
[2016-12-22] MEDS: SODIUM CHLORIDE 0.9% FLUSH 10 ML FLUSH IV FLUSH SCH ×2 (08:34→21:00)
[2016-12-22] MEDS: ACETAMINOPHEN 325 MG TAB PO PRN ×2 (09:36→22:24)
[2016-12-22] MEDS: POLYETHYLENE GLYCOL 17 GM PKG PO PRN (09:39)
[2016-12-22] MEDS: DEXTROSE 5%-NACL 0.225% INJ 1,000 ML IV SCH (11:04)
--- NOTE | 2016-12-22 14:07 | HHI.IDPN ---
Subjective Subjective Remarks Mr. Trivedi is a 61-year-old male with past medical history significant for chronic back pain, sciatica and schizophrenia who reports using marijuana for pleasure and pain. Patient is not a very reliable historian. Appears that the patient initially presented on November 29 or in the emergency department at [facility] with ophthalmic pain in the emergency department physician obtained consultation with ophthalmology. ID following for acute endopthalmitis( fungal and bacterial) Overnight events reviewed No fevers No rash No diarrhea No chest pain or SOB. Antibiotics Ancef IV Ampho IV (pt refused) Voriconazole. Lines Line sites with no e.o infection. Past Medical History reviewed Allergies: Coded Allergies: Darvocet-N 100 (Verified Allergy, Severe, Nausea/Vomiting, 12/05/16) Ibuprofen (Verified Allergy, Severe, NAUSEA, 12/05/16) Penicillin (Verified Allergy, Severe, VOMITING, SOB, 12/05/16) Opiate Agonists (Narcotics) (Verified Adverse Reaction, Unknown, Nausea/ Vomiting, 12/05/16) Objective . Vital Signs Date Time Temp Pulse Resp B/P Pulse Ox O2 Delivery O2 Flow Rate FiO2 12/22/16 08:00 98.4 61 17 95/52 99 12/22/16 08:00 61 12/22/16 06:00 59 12/22/16 04:00 67 12/22/16 04:00 97.9 57 16 110/67 97 12/22/16 02:00 67 12/22/16 00:00 60 12/22/16 00:00 98.0 60 17 111/68 12/21/16 22:00 64 12/21/16 20:00 66 12/21/16 20:00 98.1 66 37 130/77 97 12/21/16 18:00 68 12/21/16 16:00 98.2 12/21/16 16:00 59 21 108/71 12/21/16 16:00 59 12/21/16 14:00 62 12/21/16 12/21/16 12/22/16 15:00 23:00 07:00 Intake Total 1184 ml 474 ml Output Total 450 ml 500 ml 550 ml Balance 734 ml -500 ml -76 ml Intake Oral 960 ml IV Total 224 ml 474 ml Output Urine Total 450 ml 500 ml 550 ml Imaging Last Impressions Head/Brain Mag Res Venography 12/19/16 1226 Signed Impressions: Service Date/Time: Monday, December 19, 2016 14:15 - CONCLUSION: Unremarkable MRV of the brain. Jan Coreas MD Head Magnetic Resonance Angiography 12/19/16 1226 Signed Impressions: Service Date/Time: Monday, December 19, 2016 14:15 - CONCLUSION: Normal examination for a patient of this age. Jan Coreas MD Chest CT 12/19/16 0000 Signed Impressions: Service Date/Time: Monday, December 19, 2016 19:00 - CONCLUSION: 1. Evidence of granulomatous exposure with a right upper lobe calcified granuloma, right paratracheal calcified lymph node, and splenic calcified granulomas. 2. The pericardium is not thickened. A pericardial effusion is not present. Oleksandr Mathew MD Brain MRI 12/19/16 0000 Signed Impressions: Service Date/Time: Monday, December 19, 2016 14:15 - CONCLUSION: Normal examination for a patient of this age. Jan Coreas MD Physical Exam GENERAL: This is a well-nourished, well-developed patient, in no apparent distress. SKIN: No rashes, ecchymoses or lesions. Cool and dry. HEAD: Atraumatic. Normocephalic. No temporal or scalp tenderness. EYES: Right eye with opacity of entire anterior chamber. No scleral or conjunctival erythema noted. No active discharge noted. Left eye with good vision and no findings of acute infection. ENT: Nose without bleeding, purulent drainage or septal hematoma. Throat without erythema, tonsillar hypertrophy or exudate. Uvula midline. Airway patent. NECK: Trachea midline. Supple, nontender, no meningeal signs. CARDIOVASCULAR: Regular rate and rhythm without murmurs. RESPIRATORY: Clear to auscultation. Breath sounds equal bilaterally. No wheezes , rales, or rhonchi. GASTROINTESTINAL: Abdomen soft, non-tender, nondistended. MUSCULOSKELETAL: Extremities without clubbing, cyanosis, or edema. No joint tenderness, effusion, or edema noted. No calf tenderness. Negative Homans sign bilaterally. NEUROLOGICAL: Awake and alert. Grossly nonfocal. Psych cooperative IV line sites with no evidence of infection. Assessment & Plan Remarks Acute endopthalmitis of right eye Staph auricularis, Staph species infection of right eye. Fusarium species infection of right eye. Acute pericarditis ? related to the infectious disease issues. H/o Schizophrenia Recs: Continue Ancef IV (for MSSA endopthalmitis) Continue Voriconazole (for fusarium infection) 2D ECHO negative for vegetations. Follow cultures Follow clinically MRI brain, MRA and MRV of brain normal. d/w Case management Renee Gates: patient has corneal and anterior chamber infection for sure. The posterior chamber and retina cannot be visualized. MRI/MRA/MRV normal. No plans for surgery per . Patient does not meet criteria yet for evisceration as has positive light reflex. will stop by and discuss case with him. Florentino Meléndez: please address with frequency of eye drop instillation. Florentino Lino Case Management DC plan as follows: 1. Ancef 2 gm IV q8hrs (prefer a pump) 2. Voriconazole oral 3. Eye drops multiple per . Follow up with in clinic and Dr.Reba Chandra. Complete a 4 week course. If any pain, fevers or change in clinical condition patient to come back to the hospital. D.w Patient that at this point patient will likely not have denominational of vision as cornea is opacified but the goal of treatment is to prevent spread of infection to rest of eye and brain. He understands and was thankful of care provided. Once home health and medication arrangements made please call me back to assist with infusion set up etc. Margo Roberto MD Dec 22, 2016 14:06
[2016-12-22] MEDS: [UNRECOGNIZED DRUG - REMARK] RIGHT EYE SCH ×2 (22:21→23:49)
--- NOTE | 2016-12-22 23:26 | HHI.PR ---
Subjective Remarks Patient seen today around noon. Says he is feeling all right. Pain is under control. Denies any chest pain or shortness of breath. Objective Vital Signs Date Time Temp Pulse Resp B/P Pulse Ox O2 Delivery O2 Flow Rate FiO2 12/22/16 18:00 72 12/22/16 16:00 98.4 75 28 103/59 98 12/22/16 16:00 76 12/22/16 14:00 68 12/22/16 12:00 70 12/22/16 12:00 98.1 70 22 107/69 99 12/22/16 10:00 65 12/22/16 08:00 98.4 61 17 95/52 99 12/22/16 08:00 61 12/22/16 06:00 59 12/22/16 04:00 67 12/22/16 04:00 97.9 57 16 110/67 97 12/22/16 02:00 67 12/22/16 00:00 60 12/22/16 00:00 98.0 60 17 111/68 I/O 12/21/16 12/21/16 12/21/16 12/22/16 12/22/16 12/22/16 07:00 15:00 23:00 07:00 15:00 23:00 Intake Total 763 ml 1184 ml 474 ml 754 ml Output Total 500 ml 450 ml 500 ml 550 ml 1480 ml Balance 263 ml 734 ml -500 ml -76 ml -726 ml Intake Oral 710 ml 960 ml 480 ml IV Total 53 ml 224 ml 474 ml 274 ml Output Urine Total 500 ml 450 ml 500 ml 550 ml 1480 ml # Bowel Movements 0 Result Diagram: 12/19/16 1731 12/19/16 1731 Objective Remarks GENERAL: sitting up in bed. NAD. AAO x3 no appreciable change on exam. SKIN: Warm and dry. HEAD: Normocephalic. EYES: right eye with erythema. no pus.no appreciable change NECK: Supple, trachea midline. No JVD. CARDIOVASCULAR: Regular rate and rhythm without murmurs, gallops, or rubs. RESPIRATORY: Breath sounds equal bilaterally. No accessory muscle use. GASTROINTESTINAL: Abdomen soft, non-tender, nondistended. MUSCULOSKELETAL: No cyanosis, or edema. BACK: Nontender without obvious deformity. No CVA tenderness. A/P Assessment and Plan //Endophthalmitis s/p Tap and injection of right eye with vancomycin, gentamicin and triamcinolone / removal of subconjunctival steriod right eye by Dr. Watson. -right cornea culture with mold ( fusarium species) , staph epidermidis and staph auricularis -Discussed with infectious disease. Antibiotics as per infectious disease. //Possible pericarditis.no chest pain. -Appreciate infectious disease assistance. -extensive ST elevation on EKG, however asymptomatic and echocardiogram negative. CT chest with no acute findings. //Old calcified granuloma on CT chest. Appears chronic. As per infectious disease. //constipation-resolved- laxatives as needed. //DVT prophylaxis with SCDs Joe Deng MD Dec 22, 2016 23:26
[2016-12-23] VITALS (12 sets, daily range): BP systolic 101–123; BP diastolic 65–70; PULSE 60–85; RESP 16–21; TEMP 97.9–98.2; O2SAT 96–98
[2016-12-23] MEDS: [UNRECOGNIZED DRUG - OTHER] RIGHT EYE SCH ×6 (02:53→23:16)
[2016-12-23] MEDS: [UNRECOGNIZED DRUG - REMARK] RIGHT EYE SCH ×11 (02:53→23:16)
[2016-12-23] MEDS: VANCOMYCIN RIGHT EYE SCH ×6 (02:53→23:16)
[2016-12-23] MEDS: AMPHOTERICIN B RIGHT EYE SCH ×6 (02:53→23:17)
[2016-12-23] MEDS: ceFAZolin 2 GM PREMIX 50 ML IV SCH ×3 (05:45→22:59)
[2016-12-23] MEDS: ACETAMINOPHEN 325 MG TAB PO PRN ×2 (07:45→16:50)
[2016-12-23] MEDS: SODIUM CHLORIDE 0.9% FLUSH 10 ML FLUSH IV FLUSH SCH (07:46)
[2016-12-23] MEDS: VORICONAZOLE 200 MG TAB PO SCH ×2 (09:17→23:00)
[2016-12-23] MEDS: PANTOPRAZOLE SOD 20 MG DELAYED RELEASE TAB PO SCH (09:17)
[2016-12-23] MEDS: ATROPINE SULFATE 1% OPHT SOLN 5 ML BTL RIGHT EYE SCH ×3 (09:18→18:50)
[2016-12-23] MEDS: DEXTROSE 5%-NACL 0.225% INJ 1,000 ML IV SCH (11:38)
--- NOTE | 2016-12-23 16:16 | HHI.PR ---
Subjective Remarks Patient seen today around 11 AM. Says he is feeling all right. Denies any pain. No chest pain or shortness of breath. No nausea or vomiting. Objective Vital Signs Date Time Temp Pulse Resp B/P Pulse Ox O2 Delivery O2 Flow Rate FiO2 12/23/16 14:00 72 12/23/16 12:00 98.0 62 18 108/69 96 12/23/16 12:00 98.0 69 20 118/70 96 12/23/16 12:00 69 12/23/16 10:00 84 12/23/16 08:45 16 12/23/16 08:00 97.9 62 18 108/69 96 12/23/16 08:00 62 12/23/16 06:00 63 12/23/16 04:00 68 12/23/16 04:00 97.9 68 16 123/66 96 12/23/16 02:00 60 12/23/16 00:00 63 12/23/16 00:00 98.2 63 21 101/70 97 12/22/16 22:00 71 12/22/16 20:00 78 12/22/16 20:00 98.1 78 29 149/77 99 12/22/16 18:00 72 I/O 12/22/16 12/22/16 12/22/16 12/23/16 12/23/16 12/23/16 07:00 15:00 23:00 07:00 15:00 23:00 Intake Total 474 ml 754 ml 876 ml 528 ml 180 ml Output Total 550 ml 1480 ml 950 ml 300 ml 750 ml Balance -76 ml -726 ml -74 ml 228 ml -570 ml Intake Oral 480 ml 600 ml 200 ml IV Total 474 ml 274 ml 276 ml 328 ml 180 ml Output Urine Total 550 ml 1480 ml 950 ml 300 ml 750 ml Stool Total 0 ml Result Diagram: 12/19/16 1731 12/19/16 173 Objective Remarks GENERAL: sitting up in bed. NAD. AAO x3 . Again, no appreciable change on exam. SKIN: Warm and dry. HEAD: Normocephalic. EYES: right eye with erythema. no pus.no appreciable change NECK: Supple, trachea midline. No JVD. CARDIOVASCULAR: Regular rate and rhythm without murmurs, gallops, or rubs. RESPIRATORY: Breath sounds equal bilaterally. No accessory muscle use. GASTROINTESTINAL: Abdomen soft, non-tender, nondistended. MUSCULOSKELETAL: No cyanosis, or edema. BACK: Nontender without obvious deformity. No CVA tenderness. A/P Assessment and Plan =========12/23/16 No acute changes. Eyedrops have decreased every 2 hours. We'll transferred to floor. -Discussion with Dr. Watson. If patient can get corneal transplant, has good chance of recovering visual perception in the right eye. He will need 6 weeks of eyedrops, after which corneal transplant.. Appreciate case management assistance. -continue IV antibiotics as per ID. //Endophthalmitis s/p Tap and injection of right eye with vancomycin, gentamicin and triamcinolone / removal of subconjunctival steriod right eye by Dr. Watson. -right cornea culture with mold ( fusarium species) , staph epidermidis and staph auricularis -Discussed with infectious disease. Antibiotics as per infectious disease. //Possible pericarditis.no chest pain. -Appreciate infectious disease assistance. -extensive ST elevation on EKG, however asymptomatic and echocardiogram negative. CT chest with no acute findings. //Old calcified granuloma on CT chest. Appears chronic. As per infectious disease. //constipation-resolved- laxatives as needed. //DVT prophylaxis with SCDs Discharge Planning -cont on iv abx, q2 h eye drops -Expect discharge after complete IV antibiotics. -pt will need Q4 hour eye drops at home. - will need Outpatient follow-up with ophthalmology -Joe Ramachandran MD Dec 23, 2016 16:16
[2016-12-24] VITALS (18 sets, daily range): BP systolic 94–121; BP diastolic 6–80; PULSE 59–83; RESP 16–32; TEMP 97.9–98.6; O2SAT 96–98
[2016-12-24] MEDS: [UNRECOGNIZED DRUG - OTHER] RIGHT EYE SCH ×6 (02:00→22:04)
[2016-12-24] MEDS: AMPHOTERICIN B RIGHT EYE SCH ×7 (02:00→22:04)
[2016-12-24] MEDS: [UNRECOGNIZED DRUG - REMARK] RIGHT EYE SCH ×12 (02:00→22:04)
[2016-12-24] MEDS: VANCOMYCIN RIGHT EYE SCH ×6 (02:00→22:04)
[2016-12-24] MEDS: ceFAZolin 2 GM PREMIX 50 ML IV SCH ×3 (06:33→22:02)
[2016-12-24] MEDS: ATROPINE SULFATE 1% OPHT SOLN 5 ML BTL RIGHT EYE SCH ×3 (08:08→16:52)
[2016-12-24] MEDS: PANTOPRAZOLE SOD 20 MG DELAYED RELEASE TAB PO SCH (08:13)
[2016-12-24] MEDS: VORICONAZOLE 200 MG TAB PO SCH ×2 (08:13→22:02)
[2016-12-24] MEDS: SODIUM CHLORIDE 0.9% FLUSH 10 ML FLUSH IV FLUSH SCH ×2 (09:00→21:00)
--- NOTE | 2016-12-24 16:48 | HHI.PR ---
Subjective Remarks Patient seen today around 10 AM. Patient says he is feeling all right. No pain. No chest pain or shortness of breath. No nausea or vomiting. Objective Vital Signs Date Time Temp Pulse Resp B/P Pulse Ox O2 Delivery O2 Flow Rate FiO2 12/24/16 14:00 77 12/24/16 12:00 69 12/24/16 10:00 69 12/24/16 08:00 59 12/24/16 06:00 68 12/24/16 04:00 68 12/24/16 04:00 97.9 68 18 96/64 97 12/24/16 02:00 62 12/24/16 00:00 62 12/24/16 00:00 98.2 62 16 101/66 98 12/24/16 00:00 98.2 62 16 101/6 98 12/23/16 22:00 85 12/23/16 20:00 97.9 84 18 117/65 96 12/23/16 20:00 79 12/23/16 18:00 76 12/23/16 17:45 16 I/O 12/23/16 12/23/16 12/23/16 12/24/16 12/24/16 12/24/16 06:59 14:59 22:59 06:59 14:59 22:59 Intake Total 528 ml 180 ml 415 ml 235 ml 773 ml Output Total 300 ml 750 ml 1150 ml 1455 ml 880 ml Balance 228 ml -570 ml -735 ml -1220 ml -107 ml Intake Oral 200 ml 250 ml 150 ml 640 ml IV Total 328 ml 180 ml 165 ml 85 ml 133 ml Output Urine Total 300 ml 750 ml 1150 ml 1455 ml 880 ml Stool Total 0 ml # Bowel Movements 0 Objective Remarks GENERAL: sitting up in bed. NAD. AAO x3 . no appreciable change on exam. SKIN: Warm and dry. HEAD: Normocephalic. EYES: right eye with erythema. no pus.no appreciable change NECK: Supple, trachea midline. No JVD. CARDIOVASCULAR: Regular rate and rhythm without murmurs, gallops, or rubs. RESPIRATORY: Breath sounds equal bilaterally. No accessory muscle use. GASTROINTESTINAL: Abdomen soft, non-tender, nondistended. MUSCULOSKELETAL: No cyanosis, or edema. BACK: Nontender without obvious deformity. No CVA tenderness. A/P Assessment and Plan =========12/24/16 No acute changes. -Continue eye drops every 2 hours Continue iv antibiotics as per infectious disease -Transfer to general medical floor. - - After completing antifungals, antibiotics, If patient can get corneal transplant, has good chance of recovering visual perception in the right eye. He will need 6 weeks of eyedrops, after which corneal transplant.. Appreciate case management assistance. -continue IV antibiotics as per ID. //Endophthalmitis s/p Tap and injection of right eye with vancomycin, gentamicin and triamcinolone / removal of subconjunctival steriod right eye by Dr. Watson. -right cornea culture with mold ( fusarium species) , staph epidermidis and staph auricularis -Discussed with infectious disease. Antibiotics as per infectious disease. //Possible pericarditis.no chest pain. -Appreciate infectious disease assistance. -extensive ST elevation on EKG, however asymptomatic and echocardiogram negative. CT chest with no acute findings. //Old calcified granuloma on CT chest. Appears chronic. As per infectious disease. //constipation-resolved- laxatives as needed. //DVT prophylaxis with SCDs Discharge Planning -cont on iv abx, q2 h eye drops -Expect discharge after complete IV antibiotics. -pt will need Q4 hour eye drops at home. - will need Outpatient follow-up with ophthalmology -Joe Ramachandran MD Dec 24, 2016 16:48
--- NOTE | 2016-12-24 17:26 | HHI.PR ---
Subjective Remarks f/u endophthalmitis Objective Vitals Vital Signs Date Time Temp Pulse Resp B/P Pulse Ox O2 Delivery O2 Flow Rate FiO2 12/24/16 14:00 77 12/24/16 12:00 69 12/24/16 10:00 69 12/24/16 08:00 59 12/24/16 06:00 68 12/24/16 04:00 68 12/24/16 04:00 97.9 68 18 96/64 97 12/24/16 02:00 62 12/24/16 00:00 62 12/24/16 00:00 98.2 62 16 101/66 98 12/24/16 00:00 98.2 62 16 101/6 98 12/23/16 22:00 85 12/23/16 20:00 97.9 84 18 117/65 96 12/23/16 20:00 79 12/23/16 18:00 76 12/23/16 17:45 16 I/O 12/23/16 12/23/16 12/23/16 12/24/16 12/24/16 12/24/16 07:00 15:00 23:00 07:00 15:00 23:00 Intake Total 528 ml 180 ml 415 ml 235 ml 773 ml Output Total 300 ml 750 ml 1150 ml 1455 ml 880 ml Balance 228 ml -570 ml -735 ml -1220 ml -107 ml Intake Oral 200 ml 250 ml 150 ml 640 ml IV Total 328 ml 180 ml 165 ml 85 ml 133 ml Output Urine Total 300 ml 750 ml 1150 ml 1455 ml 880 ml Stool Total 0 ml # Bowel Movements 0 Imaging Last Impressions Head/Brain Mag Res Venography 12/19/166 Signed Impressions: Service Date/Time: Monday, December 19, 2016 14:15 - CONCLUSION: Unremarkable MRV of the brain. Jan Coreas MD Head Magnetic Resonance Angiography 12/19/16 1226 Signed Impressions: Service Date/Time: Monday, December 19, 2016 14:15 - CONCLUSION: Normal examination for a patient of this age. Jan Coreas MD Chest CT 12/19/16 0000 Signed Impressions: Service Date/Time: Monday, December 19, 2016 19:00 - CONCLUSION: 1. Evidence of granulomatous exposure with a right upper lobe calcified granuloma, right paratracheal calcified lymph node, and splenic calcified granulomas. 2. The pericardium is not thickened. A pericardial effusion is not present. Oleksandr Mathew MD Brain MRI 12/19/16 0000 Signed Impressions: Service Date/Time: Monday, December 19, 2016 14:15 - CONCLUSION: Normal examination for a patient of this age. Jan Coreas MD ADDENDUM: Comment on the right orbit with regards to the inflammatory changes. The right globe is slightly smaller than the left globe. There is some focal pre-septal nonspecific soft tissue swelling noted laterally to the right orbit.. However, there is no evidence of any retrobulbar soft tissue swelling or retro-bulbar mass. The lens appears to be in appropriate position. The intraocular muscles appear to be symmetric. The optic nerves appear to be symmetric. Alexander hKanna MD Objective Remarks GENERAL: NAD. AAO x3 . SKIN: Warm and dry. HEAD: Normocephalic. EYES: right eye with erythema. no pus.no appreciable change NECK: Supple, trachea midline. No JVD. CARDIOVASCULAR: Regular rate and rhythm without murmurs, gallops, or rubs. RESPIRATORY: Breath sounds equal bilaterally. No accessory muscle use. GASTROINTESTINAL: Abdomen soft, non-tender, nondistended. MUSCULOSKELETAL: No cyanosis, or edema. BACK: Nontender without obvious deformity. No CVA tenderness. Plan A/P Assessment and Plan =========12/24/16 Procedures Tap and injection of right eye with vancomycin, gentamicin and triamcinolone removal of subconjunctival steriod right eye A/P Problem List: (1) Endophthalmitis, acute ICD Code: H44.009 Status: Acute Assessment and Plan Endophthalmitis s/p Tap and injection of right eye with vancomycin, gentamicin and triamcinolone / removal of subconjunctival steriod right eye by Dr. Watson. -right cornea culture with mold ( fusarium species) , staph epidermidis and staph auricularis -Discussed with infectious disease, ct IV Ancef 7/4 and po Vfend 7/4 for 4 weeks After completing antifungals, antibiotics, If patient can get corneal transplant , has good chance of recovering visual perception in the right eye. He will need 6 weeks of eyedrops, after which corneal transplant.. Appreciate case management assistance. Possible pericarditis 2/2 ID issues. -Appreciate infectious disease assistance. S/p Chair Maker consult. constipation-resolved- laxatives as needed. DVT prophylaxis with SCDs Discharge Planning -cont on iv abx, multiple eye drops(Vfend, Vanco, Ampho B and atropine -Expect discharge after complete IV antibiotics. -pt will need Q4 hour eye drops at home. - will need Outpatient follow-up with ophthalmology - ff Problem Qualifiers (1) Endophthalmitis, acute: Qualified Code: H44.001 - Endophthalmitis, acute, right Jorden Mann MD Dec 24, 2016 17:26
[2016-12-24] MEDS: ACETAMINOPHEN 325 MG TAB PO PRN (22:02)
[2016-12-25] VITALS (7 sets, daily range): BP systolic 102–121; BP diastolic 65–74; PULSE 64–84; RESP 16–22; TEMP 97.1–98; O2SAT 94–98
[2016-12-25] MEDS: [UNRECOGNIZED DRUG - REMARK] RIGHT EYE SCH ×10 (00:55→18:06)
[2016-12-25] MEDS: [UNRECOGNIZED DRUG - OTHER] RIGHT EYE SCH ×5 (02:00→18:06)
[2016-12-25] MEDS: VANCOMYCIN RIGHT EYE SCH ×5 (02:00→18:06)
[2016-12-25] MEDS: AMPHOTERICIN B RIGHT EYE SCH ×4 (02:00→18:06)
[2016-12-25] MEDS: ceFAZolin 2 GM PREMIX 50 ML IV SCH ×3 (05:00→19:59)
[2016-12-25] MEDS: ACETAMINOPHEN 325 MG TAB PO PRN ×2 (08:56→20:08)
[2016-12-25] MEDS: VORICONAZOLE 200 MG TAB PO SCH ×2 (08:56→20:09)
[2016-12-25] MEDS: PANTOPRAZOLE SOD 20 MG DELAYED RELEASE TAB PO SCH (08:56)
[2016-12-25] MEDS: SODIUM CHLORIDE 0.9% FLUSH 10 ML FLUSH IV FLUSH SCH ×2 (08:58→20:09)
[2016-12-25] MEDS: ATROPINE SULFATE 1% OPHT SOLN 5 ML BTL RIGHT EYE SCH ×4 (08:58→20:00)
[2016-12-25] MEDS ORDERED: LACTULOSE SYRUP 20 GM/30 ML CUP PO PRN (12:30)
[2016-12-25] MEDS ORDERED: MAGNESIUM HYDROXIDE SUSP 30 ML CUP PO PRN (12:30)
[2016-12-25] MEDS ORDERED: SENNOSIDES 8.6 MG TAB PO PRN (12:30)
--- NOTE | 2016-12-25 12:42 | HHI.PR ---
Subjective Remarks Follow-up endophthalmitis. Unable to see from the right eye. Denies any other complaints. Still no BM no nausea or abdominal pain. Discussed with ID and RN Objective Vitals Vital Signs Date Time Temp Pulse Resp B/P Pulse Ox O2 Delivery O2 Flow Rate FiO2 12/25/16 08:00 97.7 69 20 115/74 94 12/25/16 06:00 68 12/25/16 04:00 98.0 78 22 118/73 12/25/16 04:00 65 12/25/16 02:00 64 12/25/16 00:33 12 12/25/16 00:00 84 12/25/16 00:00 98.0 74 16 121/68 96 12/24/16 22:00 72 12/24/16 22:00 72 12/24/16 20:00 68 12/24/16 20:00 97.9 67 18 101/65 96 12/24/16 18:00 78 12/24/16 18:00 78 32 12/24/16 17:00 77 23 101/73 12/24/16 16:00 98.3 63 23 107/63 12/24/16 16:00 63 12/24/16 15:00 72 20 101/64 12/24/16 14:03 73 18 114/80 12/24/16 14:00 77 12/24/16 13:00 83 24 109/80 I/O 12/24/16 12/24/16 12/24/16 12/25/16 12/25/16 12/25/16 07:00 15:00 23:00 07:00 15:00 23:00 Intake Total 235 ml 773 ml 428 ml 350 ml Output Total 1455 ml 880 ml 1230 ml 850 ml 300 ml Balance -1220 ml -107 ml -802 ml -500 ml -300 ml Intake Oral 150 ml 640 ml 350 ml 200 ml IV Total 85 ml 133 ml 78 ml 150 ml Output Urine Total 1455 ml 880 ml 1230 ml 850 ml 300 ml # Bowel Movements 0 0 0 Imaging Last Impressions Head/Brain Mag Res Venography 12/19/166 Signed Impressions: Service Date/Time: Monday, December 19, 2016 14:15 - CONCLUSION: Unremarkable MRV of the brain. Jan Coreas MD Head Magnetic Resonance Angiography 12/19/16 1226 Signed Impressions: Service Date/Time: Monday, December 19, 2016 14:15 - CONCLUSION: Normal examination for a patient of this age. Jan Coreas MD Chest CT 12/19/16 0000 Signed Impressions: Service Date/Time: Monday, December 19, 2016 19:00 - CONCLUSION: 1. Evidence of granulomatous exposure with a right upper lobe calcified granuloma, right paratracheal calcified lymph node, and splenic calcified granulomas. 2. The pericardium is not thickened. A pericardial effusion is not present. Oleksandr Mathew MD Brain MRI 12/19/16 0000 Signed Impressions: Service Date/Time: Monday, December 19, 2016 14:15 - CONCLUSION: Normal examination for a patient of this age. Jan Coreas MD ADDENDUM: Comment on the right orbit with regards to the inflammatory changes. The right globe is slightly smaller than the left globe. There is some focal pre-septal nonspecific soft tissue swelling noted laterally to the right orbit.. However, there is no evidence of any retrobulbar soft tissue swelling or retro-bulbar mass. The lens appears to be in appropriate position. The intraocular muscles appear to be symmetric. The optic nerves appear to be symmetric. Alexander Khanna MD Objective Remarks GENERAL: NAD. AAO x3 . SKIN: Warm and dry. HEAD: Normocephalic. EYES: Right cornea opacified NECK: Supple, trachea midline. No JVD. CARDIOVASCULAR: Regular rate and rhythm without murmurs, gallops, or rubs. RESPIRATORY: Breath sounds equal bilaterally. No accessory muscle use. GASTROINTESTINAL: Abdomen soft, non-tender, nondistended. MUSCULOSKELETAL: No cyanosis, or edema. BACK: Nontender without obvious deformity. No CVA tenderness. Plan A/P Assessment and Plan =========12/24/16 Procedures Tap and injection of right eye with vancomycin, gentamicin and triamcinolone removal of subconjunctival steriod right eye A/P Problem List: (1) Endophthalmitis, acute ICD Code: H44.009 Status: Acute Assessment and Plan Endophthalmitis s/p Tap and injection of right eye with vancomycin, gentamicin and triamcinolone / removal of subconjunctival steriod right eye by Dr. Watson. -right cornea culture with mold ( fusarium species) , staph epidermidis and staph auricularis -Discussed with infectious disease, ct IV Ancef 7/4 and po Vfend 7/4 for 4 weeks After completing antifungals, antibiotics, If patient can get corneal transplant , has good chance of recovering visual perception in the right eye. He will need 6 weeks of eyedrops, after which corneal transplant.. Appreciate case management assistance. Possible pericarditis 2/2 ID issues. -Appreciate infectious disease assistance. S/p Metal Worker consult. constipation-start pericolace and laxatives as needed. DVT prophylaxis with SCDs Discharge Planning -cont on iv abx, multiple eye drops(Vfend, Vanco, Ampho B and atropine -Expect discharge after complete IV antibiotics or whenever outpatient IV ancef arrangd. -pt will need Q4 hour eye drops at home. - will need Outpatient follow-up with ophthalmology -cm ff Problem Qualifiers (1) Endophthalmitis, acute: Qualified Code: H44.001 - Endophthalmitis, acute, right Jorden Mann MD Dec 25, 2016 12:42
--- NOTE | 2016-12-25 12:45 | HHI.FF ---
Face to Face Verification Diagnosis: (1) Endophthalmitis, acute Home Health Nursing Order: Medical education Signs/symptoms of disease process Medication education-adverse effect Wound care and dressing changes Nursing assessment with vital signs IV medication administration I have seen patient Rafael Trivedi on 12/25/16. My clinical findings support the need for the requested home health care services because: Med compliance is questionable Need for psychosocial assistance I certify that my clinical findings support that this patient is homebound because: Unsafe to leave home unassisted Need for psychosocial assistance Jorden Mann MD Dec 25, 2016 12:45
[2016-12-25] MEDS ORDERED: ATRO1SOL11 RIGHT EYE (12:58)
[2016-12-25] MEDS ORDERED: VORI200 PO (12:58)
[2016-12-25] MEDS ORDERED: PANT20 PO (12:58)
--- NOTE | 2016-12-25 13:01 | HHI.DS ---
Discharge Summary Admission Date Dec 05, 2016 at 19:08 Discharge Date: Dec 25, 2016 Admitting Diagnosis endophthalmitis (1) Endophthalmitis, acute ICD Code: H44.009 Diagnosis: Principal Procedures Tap and injection of right eye with vancomycin, gentamicin and triamcinolone removal of subconjunctival steriod right eye Brief History - From Admission This is a pleasant 61 year old male patient with a past medical history which includes chronic back pain, sciatica and schizophrenia. Patient reports possibly 2 weeks ago he began to have pain in his right eye. Patient describes pain as severe 9 out of 10 starting spontaneously described as aching/burning in nature. Patient reports it is slightly better when he closes the eye and worse when next the eyes exposed to light. 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 Patient denies recent surgeries to the eye. Patient reports this is never happened before. Patient does report he has had pinkeye before and initially thought he had a, "cold," in his eye that would run its course but the pain continued in his vision has progressively gotten worse. Patient at this point reports he sees light and dark and some shadows but is not able to see any detail out of the right eye. Patient reports associated congestion in his right nostril. Patient denies headache, fevers, chills, nausea, vomiting, diarrhea, constipation, shortness of breath or chest pain. Imaging Last Impressions Head/Brain Mag Res Venography 12/19/166 Signed Impressions: Service Date/Time: Monday, December 19, 2016 14:15 - CONCLUSION: Unremarkable MRV of the brain. Jan Coreas MD Head Magnetic Resonance Angiography 12/19/166 Signed Impressions: Service Date/Time: Monday, December 19, 2016 14:15 - CONCLUSION: Normal examination for a patient of this age. Jan Coreas MD Chest CT 12/19/16 0000 Signed Impressions: Service Date/Time: Monday, December 19, 2016 19:00 - CONCLUSION: 1. Evidence of granulomatous exposure with a right upper lobe calcified granuloma, right paratracheal calcified lymph node, and splenic calcified granulomas. 2. The pericardium is not thickened. A pericardial effusion is not present. Oleksandr Mathew MD Brain MRI 12/19/16 0000 Signed Impressions: Service Date/Time: Monday, December 19, 2016 14:15 - CONCLUSION: Normal examination for a patient of this age. Jan Coreas MD ADDENDUM: Comment on the right orbit with regards to the inflammatory changes. The right globe is slightly smaller than the left globe. There is some focal pre-septal nonspecific soft tissue swelling noted laterally to the right orbit.. However, there is no evidence of any retrobulbar soft tissue swelling or retro-bulbar mass. The lens appears to be in appropriate position. The intraocular muscles appear to be symmetric. The optic nerves appear to be symmetric. Alexander Khanna MD PE at Discharge GENERAL: NAD. AAO x3 . SKIN: Warm and dry. HEAD: Normocephalic. EYES: Right cornea opacified NECK: Supple, trachea midline. No JVD. CARDIOVASCULAR: Regular rate and rhythm without murmurs, gallops, or rubs. RESPIRATORY: Breath sounds equal bilaterally. No accessory muscle use. GASTROINTESTINAL: Abdomen soft, non-tender, nondistended. MUSCULOSKELETAL: No cyanosis, or edema. BACK: Nontender without obvious deformity. No CVA tenderness. Plan A/P Assessment and Plan =========12/24/16 Hospital Course Endophthalmitis s/p Tap and injection of right eye with vancomycin, gentamicin and triamcinolone / removal of subconjunctival steriod right eye by Dr. Watson. -right cornea culture with mold ( fusarium species) , staph epidermidis and staph auricularis -Discussed with infectious disease, ct IV Ancef 7/4 and po Vfend 7/4 for 4 weeks After completing antifungals, antibiotics, If patient can get corneal transplant , has good chance of recovering visual perception in the right eye. He will need 6 weeks of eyedrops(Dw Dr Watson, ct atropine eye drops one drop TD right eye, Voriconazole eye drop 1 drop right eye every 2 hours for 6 weeks, amphotericin B ophthalmic eyedrops 1 drop to right eye every 4 hours for 6 weeks and decrease vancomycin eye drop to one drop QID for 6 weeks) after which corneal transplant. Patient to follow-up with Dr. Laura Ramirez ophthalmology in one week per Dr. Watson. Appreciate case management assistance. Possible pericarditis 2/2 ID issues. -Appreciate infectious disease assistance. S/p Pony Ride Attendant consult. constipation-start pericolace and laxatives as needed. DVT prophylaxis with SCDs Pt Condition on Discharge: Stable Discharge Disposition: Discharge Home Discharge Time: > 30 minutes Discharge Instructions DIET: Follow Instructions for: As Tolerated, No Restrictions Activities you can perform: Regular-No Restrictions Activities to Avoid: Driving Follow up Referrals: Ophthalmology - 1 Week PCP Follow-up - 1 Week New Medications: Atropine Opth Drops (Atropine Opth Drops) 1% Soln 1 DROP RIGHT EYE TID eye infection Days 44 ML Pantoprazole (Protonix) 20 Mg Tab 20 MG PO DAILY Manage Heartburn #30 TAB Voriconazole (Vfend) 200 Mg Tab 200 MG PO Q12HR Infection #56 TAB Additional Information See additional written prescriptions for ophthalmic eyedrops of Vfend, vancomycin and amphotericin B I spent 35 minutes [id number] with the patient or on the shrestha discussing the patient's disposition, prognosis, and plan of care with patient's caregivers. Over half the time spent was devoted to counseling the patient regarding placement in coordinating care with caregivers and case management. Jorden Mann MD Dec 25, 2016 13:00
[2016-12-25] MEDS ORDERED: SOLU250I IV PUSH (13:13)
[2016-12-25] MEDS ORDERED: EPIN1INJ21 IV PUSH (13:13)
[2016-12-25] MEDS ORDERED: EPIN1INJ21 SQ (13:13)
[2016-12-25] MEDS ORDERED: CEFA2SOL IV (13:13)
--- NOTE | 2016-12-25 13:16 | HHI.FF ---
Infusion Therapy Location of Infusion Therapy: Home Health Care IV Infusion Order Patient Information Appointment Date: Dec 25, 2016 Patient Weight 60.5 kg Diagnosis: Diagnosis Acute endopthalmitis Staph auricularis and Staph species infection of eye. Fusarium infection of the eye. Coded Allergies: Darvocet-N 100 (Verified Allergy, Severe, Nausea/Vomiting, 12/05/16) Ibuprofen (Verified Allergy, Severe, NAUSEA, 12/05/16) Penicillin (Verified Allergy, Severe, VOMITING, SOB, 12/05/16) Opiate Agonists (Narcotics) (Verified Adverse Reaction, Unknown, Nausea/ Vomiting, 12/05/16) Administer Medication Cefazolin 2 grams IV q 8 hours Start Treatment: Dec 25, 2016 Stop Treatment: Jan 17, 2017 Additional Information Venous access: Other (Midline) Additional Instructions [x] Peripheral flush and dressing changes per protocol [x] Implanted port and central line patrolman: * Implanted port: 10 ml Normal Saline followed by 5 ml Heparin 100 units/ml Heparin flush after each use and monthly to maintain. [] May leave port accessed during therapy. [] May leave peripheral site accessed for duration of therapy. [x] If patient has SOB or respiratory distress, check oxygen saturation. If less than 90% or clinical signs of respiratory distress, administer oxygen at 2 L/min. via nasal cannula and notify physician. [x] Anaphylaxis/Reaction orders: * Stop infusion. * Keep IV line open with saline flush. * Notify physician. * Monitor vital signs every 15 minutes until symptoms resolve. * Check Oxygen saturation; Oxygen at 2 L/min. via nasal cannula if less than 90% or clinical signs of respiratory distress. * Administer diphenhydramine (Benadryl) 25 mg IV STAT, (unless patient has received as pre-med). May repeat once, if necessary. * Solu-Cortef 250 mg IVP over 30-60 seconds, use 100 mg vials for each dissolution. * Epinephrine (1mg/1 ml) 0.3 mg subcutaneously or IVP now with any signs of respiratory distress. * Check with physician for new additional pre-med orders if patient is re- challenged or re-treated. [x] May remove PICC line when treatment complete, after confirming with Physician. [x] If the patient is admitted to the hospital, the ED, or transferred via [facility] , complete transfer form including medication reconciliation order sheet. Laboratory Tests Weekly Labs: CBC w/diff, Creatinine, CRP, LFT's (Hepatic function test) Additional Information Please draw weekly labs, fax labs to number below and call with abnormals, change in clinical condition or problems to: or ID Physician Follow up appt: Patient to schedule follow up appt with . Follow up with PCP Follow up with other MDs as planned. Counseling: Counseled about medication side effects Counseled about PICC line care and hand hygiene. Margo Roberto MD Dec 25, 2016 13:16
--- NOTE | 2016-12-25 13:27 | HHI.PR ---
Addendum to Inpatient Note Addendum Reason: Additional Documentation Additional Information d/w and Case management: Ancef IV orders in chart Needs voriconazole oral as well as eye drops gtt to be arranged prior to discharge. dw Home health liason patient and will learn and do IV plus oral antibiotics and eye drops as scheduled/ Will sign off please call back if any change in clinical condition or questions. Margo Roberto MD Dec 25, 2016 13:27
[2016-12-25] MEDS ORDERED: DOCUSATE SODIUM 50 MG/SENNA 8.6 MG TAB PO SCH (21:00)
== END 2016-12-25 21:17 | disposition home or self-care (01) | DRG 116 ==
LOC: NEPE 17:55 → NEDA 19:08 → N04B 20:50 → HIMN 12-08 22:45 → N05A 12-25 07:49
PROVIDERS: ADMIT Internal Medicine; ATTEND Internal Medicine
PROC: 08923ZZ Drainage of Right Anterior Chamber, Percutaneous Approach (ICD-10-PCS; principal; 2016-12-05)
PROC: 3E0C329 Introduction of Other Anti-infective into Eye, Percutaneous Approach (ICD-10-PCS; 2016-12-05)
PROC: 089 Eye, Drainage (ICD-10-PCS; 2016-12-05)
PROC: 08P Eye, Removal (ICD-10-PCS; 2016-12-15)
DX: H44.001 Unspecified purulent endophthalmitis, right eye (principal); F20.0 Paranoid schizophrenia; I30.9 Acute pericarditis, unspecified; B48.8 Other specified mycoses; H16.8 Other keratitis; B95.7 Other staphylococcus as the cause of diseases classified elsewhere; M54.40 Lumbago with sciatica, unspecified side; G89.29 Other chronic pain; H54.7 Unspecified visual loss; R94.31 Abnormal electrocardiogram [ECG] [EKG]; K59.00 Constipation, unspecified; B95.61 Methicillin susceptible Staphylococcus aureus infection as the cause of diseases classified elsewhere; F17.200 Nicotine dependence, unspecified, uncomplicated; F12.90 Cannabis use, unspecified, uncomplicated; Z88.0 Allergy status to penicillin; Z88.5 Allergy status to narcotic agent; Z88.6 Allergy status to analgesic agent
CPT/HCPCS: 36569; 70544; 70546; 70553; 71250; 76937; 80048; 80053; 80074; 82550; 83735; 84100; 84484; 85025; 85610; 85652; 85730; 86038; 86140; 86403; 86430; 87040; 87070; 87077; 87102; 87103; 87107; 87186; 87205; 87206; 87641; 93005; 93306; A9579; J0289; J0690; J2405; J7060